=== PATIENT | female | born 1940 | race Two or more races ===

== ENCOUNTER 2017-03-02 20:45 | Inpatient (IN) | payer MEDICARE ==
[~2017-03-02] VITALS: Ht 165.1 cm; Wt 88.6 kg
[2017-03-02 21:13] VITALS: BP 118/56
[2017-03-02] MEDS ORDERED: ARNICARE TOP (21:29)
[2017-03-02] MEDS ORDERED: NYST15PO9 TP (21:29)
[2017-03-02] MEDS ORDERED: LORA0.5T PO (21:29)
[2017-03-02] MEDS ORDERED: CLOP75TA57 PO (21:29)
[2017-03-02] MEDS ORDERED: DONE10TA7 PO (21:29)
[2017-03-02] MEDS ORDERED: ARIP2TAB35 PO (21:29)
[2017-03-02] MEDS ORDERED: INSU100I17 SQ (21:29)
[2017-03-02] MEDS ORDERED: HYDR-965 PO (21:29)
[2017-03-02] MEDS ORDERED: CYAN10005 PO (21:29)
[2017-03-02] MEDS ORDERED: CITA20TA9 PO (21:29)
[2017-03-02] MEDS ORDERED: GABA600T PO (21:29)
[2017-03-02] MEDS ORDERED: INSU100I27 SQ (21:29)
[2017-03-02] MEDS ORDERED: LEVO1CAP3 PO (21:29)
[2017-03-02] MEDS ORDERED: PYRI100T3 PO (21:29)
[2017-03-02] MEDS ORDERED: MINE3.5O2 OU (21:29)
[2017-03-02] MEDS ORDERED: CHOL10003 PO (21:29)
[2017-03-02] MEDS ORDERED: AMLO5TAB4 PO (21:29)
[2017-03-02] MEDS ORDERED: POTA20TA4 PO (21:29)
[2017-03-02] MEDS ORDERED: ATOR40TA59 PO (21:29)
[2017-03-02] MEDS ORDERED: METHYL SALICYLATE/MENTHOL TOPICAL OINTMENT 29GM TUBE. TP PRN (21:30)
[2017-03-02] MEDS ORDERED: MAGNESIUM HYDROXIDE 2,400 MG/30 ML ORAL.SUSP. PO PRN (21:30)
[2017-03-02] MEDS ORDERED: LORazepam 0.5 MG TABLET PO PRN (21:30)
[2017-03-02] MEDS ORDERED: MAG HYDROX/AL HYDROX/SIMETH 30 ML ORAL.SUSP PO PRN (21:30)
[2017-03-02] MEDS ORDERED: NYSTATIN TOPICAL POWDER 15GM BOTTLE. TP PRN (21:45)
[2017-03-02] MEDS ORDERED: DEXTROSE 50% 25 GM / 50ML DISP.SYRIN. IV PRN (21:45)
[2017-03-02 22:01] LABS: BASO # 0.1 x10^3/uL (0.0-0.2); BASO % 1 % (0-3); EOS # 0.1 x10^3/uL (0.0-0.7); EOS % 2 % (0-3); HEMATOCRIT 37.5 % (36.0-47.0); HEMOGLOBIN 12.7 g/dL (12.0-15.5); LYMPH % 31 % (24-48); MEAN CORPUSCULAR HEMOGLOBIN 32 pg (25-35); MEAN CORPUSCULAR HGB CONC 34 g/dL (31-37); MEAN CORPUSCULAR VOLUME 95 fL (79-100); MONO # 0.7 x10^3/uL (0.0-1.1); MONO % 11 % (0-9); NEUT # 3.6 x10^3uL (1.8-7.7); NEUT % 55 % (31-73); PLATELET COUNT 245 x10^3/uL (140-400); RED BLOOD COUNT 3.94 x10^6/uL (3.50-5.40); RED CELL DISTRIBUTION WIDTH 12.7 % (11.5-14.5); WHITE BLOOD COUNT 6.5 x10^3/uL (4.0-11.0)
[2017-03-02 22:10] LABS: ALBUMIN 3.6 g/dL (3.4-5.0); CALCIUM 9.8 mg/dL (8.5-10.1); CREATININE 1.5 mg/dL (0.6-1.0); GFR 33.6; MAGNESIUM 0.9 mg/dL (1.8-2.4); POTASSIUM 5.4 mmol/L (3.5-5.1); TOTAL BILIRUBIN 0.6 mg/dL (0.2-1.0); TOTAL PROTEIN 7.2 g/dL (6.4-8.2)
[2017-03-02] MEDS: ATORVASTATIN CALCIUM 20 MG TABLET PO SCH (22:32)
[2017-03-02] MEDS: MINERAL OIL/PETROLATUM,WHITE OPHTH OINT 3.5GM TUBE. OU SCH (22:32)
[2017-03-02] MEDS: GABAPENTIN 300 MG CAPSULE. PO SCH (22:32)
[2017-03-02] MEDS: INSULIN DETEMIR 300 UNITS/3 ML INSULN.PEN. SQ SCH (22:34)
[2017-03-02] MEDS: HYDROcodone/APAP 7.5/325MG 1 TAB TABLET PO SCH (22:45)
[2017-03-03 05:40] LABS: BACTERIA,URINE FEW /HPF (0-FEW); BILIRUBIN,URINE NEG (NEG); CLARITY,URINE CLEAR; COLOR,URINE YELLOW; GLUCOSE,URINE NEG (NEG); NITRITE,URINE NEG (NEG); RBC,URINE >40 /HPF (0-2); SQUAMOUS EPITHELIAL CELL,UR FEW /LPF; UROBILINOGEN,URINE 1 mg/dL (0.2 mg/dL); WBC,URINE OCC /HPF (0-4)
[2017-03-03 05:47] VITALS: BP 134/56
[2017-03-03] MEDS: INSULIN ASPART 300 UNITS/3 ML INSULN.PEN SQ SCH ×3 (07:59→17:00)
[2017-03-03] MEDS: GABAPENTIN 300 MG CAPSULE. PO SCH ×3 (08:05→20:00)
[2017-03-03] MEDS: PYRIDOXINE 100 MG TABLET. PO SCH (08:05)
[2017-03-03] MEDS: CITALOPRAM 20 MG TABLET. PO SCH (08:05)
[2017-03-03] MEDS: CLOPIDOGREL BISULFATE 75 MG TABLET PO SCH (08:05)
[2017-03-03] MEDS: ARIPiprazole 2 MG TABLET PO SCH (08:05)
[2017-03-03] MEDS: CYANOCOBALAMIN (VITAMIN B-12) 1,000 MCG TABLET. PO SCH (08:05)
[2017-03-03] MEDS: amLODIPine BESYLATE 5 MG TABLET PO SCH (08:05)
[2017-03-03] MEDS: VITAMIN B COMPLEX CAPSULE. PO SCH ×2 (08:05→20:01)
[2017-03-03] MEDS: CHOLECALCIFEROL (VITAMIN D3) 1,000 UNIT TABLET PO SCH (08:06)
[2017-03-03] MEDS: HYDROcodone/APAP 7.5/325MG 1 TAB TABLET PO SCH ×4 (08:12→20:03)
[2017-03-03] MEDS: MINERAL OIL/PETROLATUM,WHITE OPHTH OINT 3.5GM TUBE. OU SCH ×2 (08:48→20:03)
[2017-03-03] MEDS: DONEPEZIL HCL 10 MG TABLET PO SCH (08:48)
[2017-03-03 16:36] VITALS: BP 153/72
[2017-03-03 17:15] LABS: THYROID STIM HORMONE (TSH) 5.224 uIU/mL (0.358-3.740)
[2017-03-03] MEDS: ATORVASTATIN CALCIUM 20 MG TABLET PO SCH (20:01)
[2017-03-03] MEDS: MAGNESIUM OXIDE 400 MG TABLET PO SCH (20:03)
[2017-03-03] MEDS: INSULIN DETEMIR 300 UNITS/3 ML INSULN.PEN. SQ SCH (20:05)
[2017-03-03 20:10] LABS: T3 TOTAL 141 ng/dL (71-180); THYROXINE 8.6 ug/dL (4.5-12.0)
--- NOTE | 2017-03-03 20:35 | PDOC ---
Exam Jam Demential Exam: Jam Note: Please also refer to the separate dictated note~for this date of service dictated separately.~Patient seen individually. Discussed the patient with Nursing staff reviewed the chart.~Reviewed interim history and current functioning. Reviewed vital signs,~Labs/ Radiology~and current medications noted below. Continue current treatment with the changes noted in the dictated addendum note Assessment: Vital Signs: Vital Signs Date Time Temp Pulse Resp B/P (MAP) Pulse Ox O2 Delivery O2 Flow Rate FiO2 03/03/17 20:03 20 03/03/17 18:25 100 03/03/17 16:36 97.3 77 153/72 (99) Room Air I&O Intake and Output 03/04/17 07:00 Intake Total 900 ml Balance 900 ml Intake Oral 900 ml Labs: Laboratory Tests Test 03/02/17 21:45 03/02/17 22:22 03/03/17 05:20 03/03/17 07:50 White Blood Count 6.5 x10^3/uL (4.0-11.0) Red Blood Count 3.94 x10^6/uL (3.50-5.40) Hemoglobin 12.7 g/dL (12.0-15.5) Hematocrit 37.5 % (36.0-47.0) Mean Corpuscular Volume 95 fL (79-100) Mean Corpuscular Hemoglobin 32 pg (25-35) Mean Corpuscular Hemoglobin Concent 34 g/dL (31-37) Red Cell Distribution Width 12.7 % (11.5-14.5) Platelet Count 245 x10^3/uL (140-400) Neutrophils (%) (Auto) 55 % (31-73) Lymphocytes (%) (Auto) 31 % (24-48) Monocytes (%) (Auto) 11 % (0-9) H Eosinophils (%) (Auto) 2 % (0-3) Basophils (%) (Auto) 1 % (0-3) Neutrophils # (Auto) 3.6 x10^3uL (1.8-7.7) Lymphocytes # (Auto) 2.0 x10^3/uL (1.0-4.8) Monocytes # (Auto) 0.7 x10^3/uL (0.0-1.1) Eosinophils # (Auto) 0.1 x10^3/uL (0.0-0.7) Basophils # (Auto) 0.1 x10^3/uL (0.0-0.2) Sodium Level 139 mmol/L (136-145) Potassium Level 5.4 mmol/L (3.5-5.1) H Chloride Level 107 mmol/L (98-107) Carbon Dioxide Level 21 mmol/L (21-32) Anion Gap 11 (6-14) Blood Urea Nitrogen 21 mg/dL (7-20) H Creatinine 1.5 mg/dL (0.6-1.0) H Estimated GFR (Cockcroft-Gault) 33.6 BUN/Creatinine Ratio 14 (6-20) Glucose Level 169 mg/dL (70-99) H Calcium Level 9.8 mg/dL (8.5-10.1) Magnesium Level 0.9 mg/dL (1.8-2.4) L Iron Level 63 ug/dL (50-170) Total Iron Binding Capacity 291 ug/dL (250-450) Iron Saturation 22 % (15-34) Total Bilirubin 0.6 mg/dL (0.2-1.0) Aspartate Amino Transferase (AST) 32 U/L (15-37) Alanine Aminotransferase (ALT) 34 U/L (14-59) Alkaline Phosphatase 153 U/L (46-116) H Total Protein 7.2 g/dL (6.4-8.2) Albumin 3.6 g/dL (3.4-5.0) Albumin/Globulin Ratio 1.0 (1.0-1.7) Triglycerides Level 107 mg/dL (0-150) Cholesterol Level 142 mg/dL (0-200) LDL Cholesterol, Calculated 95 mg/dL (0-100) VLDL Cholesterol, Calculated 21 mg/dL (0-40) Non-HDL Cholesterol Calculated 116 mg/dL (0-129) HDL Cholesterol 26 mg/dL (40-60) L Cholesterol/HDL Ratio 5.0 25-Hydroxy Vitamin D Total Pending Thyroid Stimulating Hormone (TSH) 5.224 uIU/mL (0.358-3.740) Thyroxine (T4) 8.6 ug/dL (4.5-12.0) Total Triiodothyronine (TT3) 141 ng/dL (71-180) RPR Titer Additional Testing Pending Glucose (Fingerstick) 165 mg/dL (70-99) H 110 mg/dL (70-99) H Urine Collection Type Unknown Urine Color Yellow Urine Clarity Clear Urine pH 5.0 Urine Specific [place] 1.020 Urine Protein 30 mg/dl (NEG-TRACE) Urine Glucose (UA) Neg mg/dL (NEG) Urine Ketones (Stick) Trace mg/dL (NEG) Urine Blood Large (NEG) Urine Nitrite Neg (NEG) Urine Bilirubin Neg (NEG) Urine Urobilinogen Dipstick 1 mg/dL (0.2 mg/dL) Urine Leukocyte Esterase Neg (NEG) Urine RBC >40 /HPF (0-2) Urine WBC Occ /HPF (0-4) Urine Squamous Epithelial Cells Few /LPF Urine Transitional Epithelial Cells Few /LPF Urine Bacteria Few /HPF (0-FEW) Test 03/03/17 11:12 03/03/17 16:31 03/03/17 19:08 Glucose (Fingerstick) 118 mg/dL (70-99) H 130 mg/dL (70-99) H 203 mg/dL (70-99) H Current Medications: Meds: Current Medications Acetaminophen (Tylenol) 650 mg PRN Q6HRS PRN PO PAIN / TEMP; Start 03/02/17 at 21:30 Multi-Ingredient Ointment (Analgesic [place]) 1 jasmyne PRN QID PRN TP MUSCLE PAIN Last administered on 03/02/17 22:32; Start 03/02/17 at 21:30 Al Hydroxide/Mg Hydroxide (Mylanta Plus Xs) 15 ml PRN AFTMEALHC PRN PO DYSPEPSIA; Start 03/02/17 at 21:30 Magnesium Hydroxide (Milk Of Magnesia) 2,400 mg PRN QHS PRN PO CONSTIPATION; Start 03/02/17 at 21:30 Aripiprazole (Abilify) 2 mg DAILY PO Last administered on 03/03/17 08:05; Start 03/03/17 at 09:00 Citalopram Hydrobromide (CeleXA) 20 mg DAILY PO Last administered on 03/03/17 08:05; Start 03/03/17 at 09:00 Donepezil HCl (Aricept) 10 mg DAILY PO Last administered on 03/03/17 08:48; Start 03/03/17 at 09:00 Lorazepam (Ativan) 0.5 mg PRN TID PRN PO ANXIETY / AGITATION; Start 03/02/17 at 21:30 Amlodipine Besylate (Norvasc) 5 mg DAILY PO Last administered on 03/03/17 08: 05; Start 03/03/17 at 09:00 Vitamin D (Vitamin D3) 5,000 unit DAILY PO Last administered on 03/03/17 08:06 ; Start 03/03/17 at 09:00 Clopidogrel Bisulfate (Plavix) 75 mg DAILY PO Last administered on 03/03/17 08 :05; Start 03/03/17 at 09:00 Cyanocobalamin (Vitamin B-12) 1,000 mcg DAILY PO Last administered on 08:05; Start 03/03/17 at 09:00 Acetaminophen/ Hydrocodone Bitart (Lortab 7.5/325) 1 tab QID PO Last administered on 03/03/17 20:03; Start 03/02/17 at 22:00 Insulin Detemir (Levemir) 25 units QHS SQ Last administered on 03/03/17 20:05 ; Start 03/02/17 at 22:00 Nystatin (Nystop) 1 jasmyne PRN BID PRN TP REDNESS Last administered on 03/03/17 08:04; Start 03/02/17 at 21:45 Pyridoxine HCl (Vitamin B-6) 100 mg DAILY PO Last administered on 03/03/17 08: 05; Start 03/03/17 at 09:00 Atorvastatin Calcium (Lipitor) 40 mg QHS PO Last administered on 03/03/17 20: 01; Start 03/02/17 at 22:00 Gabapentin (Neurontin) 600 mg TID PO Last administered on 03/03/17 20:00; Start 03/02/17 at 22:00 Vitamin B Complex 1 cap BID PO Last administered on 03/03/17 20:01; Start at 09:00 Multi-Ingred Cream/Lotion/Oil/ Oint (Artificial Tears Eye Oint) 1 jasmyne BID OU Last administered on 03/03/17 20:03; Start 03/02/17 at 22:00 Insulin Aspart (NovoLOG) 0-5 UNITS TIDWMEALS SQ ; Start 03/03/17 at 08:00 Dextrose 12.5 gm PRN Q15MIN PRN IV SEE COMMENTS; Start 03/02/17 at 21:45 Magnesium Oxide (Magnesium Oxide) 400 mg TID PO Last administered on 03/03/17t 20:03; Start 03/03/17 at 21:00 Sodium Bicarbonate 650 mg BID PO ; Start 03/03/17 at 21:00 Active Scripts Active Reported [place] 7.5-325 Tablet (Hydrocodone Bit/Acetaminophen) 1 Each Tablet 1 Tab PO QID Metanx Capsule (Levomefolate/B6/B12/Algal Oil) 1 Each Capsule 1 Cap PO BID Lorazepam 0.5 Mg Tablet 0.5 Mg PO PRN TID PRN Abilify (Aripiprazole) 2 Mg Tablet 2 Mg PO DAILY Celexa (Citalopram Hydrobromide) 20 Mg Tablet 20 Mg PO DAILY Neurontin (Gabapentin) 600 Mg Tablet 600 Mg PO TID [Arnicare Gel] 1 Jasmyne TOP PRN BID PRN Donepezil Hcl 10 Mg Tablet 10 Mg PO DAILY Levemir Flextouch (Insulin Detemir) 100 Unit/1 Ml Insuln.pen 25 Unit SQ QHS Klor-Con M20 (Potassium Chloride) 20 Meq Tab.er.prt 40 Meq PO DAILY Novolog Flexpen (Insulin Aspart) 100 Unit/1 Ml Insuln.pen 0-5 Unit SQ TIDWMEALS Nystatin 15 Gm Powder 1 Jasmyne TP PRN BID PRN Pyridoxine Hcl 100 Mg Tablet 100 Mg PO DAILY Norvasc (Amlodipine Besylate) 5 Mg Tablet 5 Mg PO DAILY Atorvastatin Calcium 40 Mg Tablet 40 Mg PO QHS Plavix (Clopidogrel Bisulfate) 75 Mg Tablet 75 Mg PO DAILY Refresh Lacri-Lube Ointment (Mineral Oil/Petrolatum,White) 3.5 Gm Oint...g. 1 Jasmyne OU BID Vitamin B-12 (Cyanocobalamin (Vitamin B-12)) 1,000 Mcg Tablet 1,000 Mcg PO DAILY Vitamin D3 (Cholecalciferol (Vitamin D3)) 1,000 Unit Tablet 5,000 Unit PO DAILY ALESSANDRA IBRAHIM MD Mar 03, 2017 20:35
[2017-03-03] MEDS: SODIUM BICARBONATE 650 MG TABLET PO SCH (21:07)
[2017-03-04 01:09] LABS: HEMOGLOBIN A1C 6.2 % (4.8-5.6)
[2017-03-04 06:11] VITALS: BP 134/66
[2017-03-04 07:00] LABS: CREATININE 1.8 mg/dL (0.6-1.0); GFR 27.2; MAGNESIUM 1.1 mg/dL (1.8-2.4); POTASSIUM 4.6 mmol/L (3.5-5.1)
[2017-03-04] MEDS: INSULIN ASPART 300 UNITS/3 ML INSULN.PEN SQ SCH ×3 (08:00→17:16)
[2017-03-04] MEDS: CHOLECALCIFEROL (VITAMIN D3) 1,000 UNIT TABLET PO SCH (09:28)
[2017-03-04] MEDS: HYDROcodone/APAP 7.5/325MG 1 TAB TABLET PO SCH ×5 (09:29→20:49)
[2017-03-04] MEDS: PYRIDOXINE 100 MG TABLET. PO SCH (09:29)
[2017-03-04] MEDS: DONEPEZIL HCL 10 MG TABLET PO SCH (09:29)
[2017-03-04] MEDS: SODIUM BICARBONATE 650 MG TABLET PO SCH ×3 (09:29→20:48)
[2017-03-04] MEDS: VITAMIN B COMPLEX CAPSULE. PO SCH ×3 (09:29→20:48)
[2017-03-04] MEDS: CITALOPRAM 20 MG TABLET. PO SCH (09:30)
[2017-03-04] MEDS: MAGNESIUM OXIDE 400 MG TABLET PO SCH ×4 (09:30→20:49)
[2017-03-04] MEDS: CYANOCOBALAMIN (VITAMIN B-12) 1,000 MCG TABLET. PO SCH (09:30)
[2017-03-04] MEDS: CLOPIDOGREL BISULFATE 75 MG TABLET PO SCH (09:30)
[2017-03-04] MEDS: amLODIPine BESYLATE 5 MG TABLET PO SCH (09:30)
[2017-03-04] MEDS: GABAPENTIN 300 MG CAPSULE. PO SCH ×4 (09:30→20:49)
[2017-03-04] MEDS: MINERAL OIL/PETROLATUM,WHITE OPHTH OINT 3.5GM TUBE. OU SCH ×3 (09:31→20:48)
[2017-03-04] MEDS: ARIPiprazole 2 MG TABLET PO SCH (09:34)
--- NOTE | 2017-03-04 15:43 | HP ---
ADMIT DATE: 03/03/2017 This late entry 03/03/2017 covers elements not covered in my initial note on 03/03/2017. I met with patient in the evening of 03/03/2017 for this evaluation. Previously I discussed with nursing staff several times on 03/02/2017 and 03/03/2017 regarding circumstances of her admission gathered history from the Emergency Room at [facility] where she presented from [facility] reviewed admission criteria, gave admission orders and medication adjustments, labs. CHIEF COMPLAINT: "Yes, I get upset. I have been depressed." HISTORY OF PRESENT ILLNESS: The patient has a history of dementia, Alzheimer's, vascular and more recently she has been getting increasingly depressed. She has been at [facility], had acute mental status changes, was her wheelchair into other people. Reportedly, she grabbed her daughter's neck, was agitated, aggressive, verbally abusive, labile, paranoid about food being poisoned and refusing medications. Behaviors were deemed dangerous, unmanageable at the facility. She was sent to the [facility] Emergency Room where the ER physician psychiatric hospitalization. She has also had some sleep and appetite changes. No active suicidal or homicidal ideation other than above. Short term memory has been worsening. PAST PSYCHIATRIC HISTORY: As above. PAST MEDICAL HISTORY: Cellulitis, fibromyalgia, type 2 diabetes mellitus, lymphedema, chronic kidney disease stage 3, chronic diarrhea, hypertension, history of pulmonary embolism, obstructive sleep apnea, rotator cuff pain, Accu-Cheks before meals and at bedtime. Serum magnesium is low at 0.9, being supplemented by Dr. Stovall. CODE STATUS: Full code. ALLERGIES: PENICILLIN, SULFA, TAPE. CURRENT PSYCHOTROPICS: MRAD was reviewed and drug interactions reviewed carefully. She is on Abilify 2 mg a day, Celexa 20 mg a day, B12 supplements, Aricept 10 mg a day, Neurontin 600 mg 3 times a day, Ativan p.r.n. FAMILY HISTORY: Noncontributory. 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 She talked about her dog cancer, gets tearful. Speech is coherent. Ambulation impaired and wheelchair. Short term memory is impaired. She is otherwise pleasant was oriented x 2, knew her name and birthday. When I questioned her, she knew the year. Attention span short. Language function intact. Mood is dysphoric, depressed, but she was quite verbal with me. Affect is mood, congruent. No active suicidal or homicidal ideation. REVIEW OF SYSTEMS: Ambulation impaired, in a wheelchair. No CV, , pulmonary, eye system symptoms on review. 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 PLAN: Admit to Geropsychiatry Unit at [facility]. I will see the patient daily individually from a psychiatric standpoint medical followup with Dr. Jimenes/Dr. Stovall. We may consider changing Celexa to Cymbalta 30 mg a day starting on 03/04/2017 maintaining the rest of his psychotropics. I have carefully reviewed the drug interactions. Risk/benefit ratio favors no further change at this time. MAN Elizabeth IBRAHIM MD DR: CARLA/faith JOB#: [id number] / [id number]
[2017-03-04 15:47] VITALS: BP 115/64
--- NOTE | 2017-03-04 17:52 | CONS ---
DATE OF CONSULTATION: 03/03/2017 REASON FOR CONSULTATION: Medical management. HISTORY OF PRESENT ILLNESS: The patient is a 77-year-old female patient, a resident at [facility], who was basically [facility] on the account of ramming people with her wheelchair, grabbed daughter's neck, verbally abusive, labile, paranoid about food is being poisoned and refusing medication. All this in a background of dementia with behavioral disorder and she was admitted here for inpatient psychiatric stabilization. The patient herself denied any complaints. PAST MEDICAL HISTORY: Significant for type 2 diabetes, chronic kidney disease, hypertension, pulmonary embolism, obstructive sleep apnea, lymphedema, chronic diarrhea, and cellulitis. PAST PSYCHIATRIC HISTORY: Significant for dementia. ALLERGIES: SHE IS ALLERGIC TO PENICILLIN, SULFA DRUGS, AND ADHESIVE TAPE. MEDICATIONS: She is currently on following medications: She is on amlodipine besylate 5 mg once a day, aripiprazole/Abilify 2 mg once a day, atorvastatin calcium 40 mg at bedtime, vitamin D3 5000 units once a day, citalopram hydrobromide/Celexa 20 mg once a day, Plavix 75 mg daily, cyanocobalamin 1000 mcg p.o. daily, Aricept 10 mg daily, gabapentin 600 mg 3 times a day, hydrocodone/APAP 7.5/325 one tablet 4 times a day. She is on NovoLog insulin 0 to 5 units subcutaneously before meals and Levemir insulin 25 units subcutaneously at bedtime. She is on multivitamin 1 tablet once a day, lorazepam 0.5 mg 3 times a day, Refresh Lacri-Lube ointment applied to both eyes twice a day, nystatin powder applied topically twice a day, potassium chloride 40 mEq once a day, pyridoxine 100 mg once a day, FAMILY HISTORY: Unremarkable. SOCIAL HISTORY: She is a resident at a [place] [facility]. She does not smoke, drink alcohol or use any recreational drugs. PHYSICAL EXAMINATION: GENERAL: On examining her, she was resting comfortably in her wheelchair, in no apparent respiratory distress. No pallor, jaundice, cyanosis, lymphadenopathy or thyromegaly. No jugular venous distention. Mild bilateral lower limb edema. VITAL SIGNS: Her heart rate was 77, blood pressure was 153/72, temperature was 97.3, respiratory rate was 18 and oxygen saturation was 100% on room air. HEAD, EYES, EARS, NOSE AND THROAT: Showed normocephalic, atraumatic. NECK: Supple. HEART: Showed normal first and second heart sounds with no gallop, rub or murmur. CHEST: Clear to auscultation. No crepitation or rhonchi. ABDOMEN: Distended, soft, nontender. No guarding or rigidity. No organomegaly. Hernial orifices intact. Bowel sounds normal. NEUROLOGIC: She was awake, alert, responding appropriately. Her cranial nerves intact. EXTREMITIES: She moves her extremities without difficulty, although she is mostly chair-bound. LABORATORY WORK: This afternoon showed a white cell count 6500, hemoglobin 12.7, hematocrit 37.5, MCV 95 and platelet count 245,000 with normal manual differential. Her serum sodium was 139, potassium 5.4, chloride 107, bicarbonate 21, anion gap of 11, BUN 21, creatinine 1.5, estimated GFR was 53 mL per minute, glucose was 69, calcium was 9.8. Magnesium was very low at 0.9 mg/dL. Her total bilirubin, AST, ALT normal. Alkaline phosphatase slightly elevated. Total protein was 7.2, albumin 3.6. Her urinalysis showed the urine was yellow, clear with a pH of 5, specific gravity of 1.020, trace of protein, negative for glucose, there was trace of ketones, large amount of blood, negative for nitrite and leukocyte esterase, there was more than 40 rbc's, occasional wbc's, very few bacteria. IMPRESSION: In summary, this is a 77-year-old female patient who was admitted on the account of ramming people with her wheelchair, grabbed her daughter's neck, verbally abusive, labile, paranoid about food being poisoned and refusing medication, all this in a background of dementia with behavioral disorder. She has a multitude of medical problems including type 2 diabetes, hypertension, chronic kidney disease, chronic diarrhea, cellulitis and obstructive sleep apnea. She has also history of pulmonary embolism. Her lab work revealed that she has severe hypomagnesemia. Her serum magnesium was only 0.9 mg/dL. She also has mild hyperkalemia and chronic kidney disease with a creatinine of 1.5 mg/dL. Her other lab works are all within acceptable range. PLAN: My plan is obviously to replenish her magnesium, for which we will start her on magnesium oxide 400 mg 3 times a day. I will also start her on sodium bicarbonate 650 mg twice a day. She is also slightly acidotic with serum bicarbonate is only 21. We will repeat her labs tomorrow and follow her closely. Thank you, Dr. Ceja for allowing me to participate in the care of this patient. JI HAWKINS MD DR: BIJAL/faith JOB#: [id number] / [id number]
[2017-03-04] MEDS: ATORVASTATIN CALCIUM 20 MG TABLET PO SCH ×2 (20:03→20:48)
[2017-03-04] MEDS: INSULIN DETEMIR 300 UNITS/3 ML INSULN.PEN. SQ SCH ×2 (20:07→20:49)
--- NOTE | 2017-03-04 22:54 | PDOC ---
Exam Jam Demential Exam: Jam Note: Please also refer to the separate dictated note~for this date of service dictated separately.~Patient seen individually. Discussed the patient with Nursing staff reviewed the chart.~Reviewed interim history and current functioning. Reviewed vital signs,~Labs/ Radiology~and current medications noted below. Continue current treatment with the changes noted in the dictated addendum note Assessment: Vital Signs: Vital Signs Date Time Temp Pulse Resp B/P (MAP) Pulse Ox O2 Delivery O2 Flow Rate FiO2 03/04/17 18:49 20 Room Air 03/04/17 15:47 97.7 65 115/64 (81) 100 I&O Intake and Output 03/05/17 07:00 Intake Total 960 ml Balance 960 ml Intake Oral 960 ml Labs: Laboratory Tests Test 03/04/17 06:37 03/04/17 07:19 03/04/17 11:15 03/04/17 16:38 Sodium Level 138 mmol/L (136-145) Potassium Level 4.6 mmol/L (3.5-5.1) Chloride Level 105 mmol/L (98-107) Carbon Dioxide Level 25 mmol/L (21-32) Anion Gap 8 (6-14) Blood Urea Nitrogen 28 mg/dL (7-20) H Creatinine 1.8 mg/dL (0.6-1.0) H Estimated GFR (Cockcroft-Gault) 27.2 Glucose Level 83 mg/dL (70-99) Calcium Level 9.0 mg/dL (8.5-10.1) Magnesium Level 1.1 mg/dL (1.8-2.4) L Glucose (Fingerstick) 78 mg/dL (70-99) 128 mg/dL (70-99) H 154 mg/dL (70-99) H Test 03/04/17 19:05 Glucose (Fingerstick) 206 mg/dL (70-99) H Current Medications: Meds: Current Medications Acetaminophen (Tylenol) 650 mg PRN Q6HRS PRN PO PAIN / TEMP; Start 03/02/17 at 21:30 Multi-Ingredient Ointment (Analgesic [place]) 1 jasmyne PRN QID PRN TP MUSCLE PAIN Last administered on 03/02/17t 22:32; Start 03/02/17 at 21:30 Al Hydroxide/Mg Hydroxide (Mylanta Plus Xs) 15 ml PRN AFTMEALHC PRN PO DYSPEPSIA; Start 03/02/17 at 21:30 Magnesium Hydroxide (Milk Of Magnesia) 2,400 mg PRN QHS PRN PO CONSTIPATION; Start 03/02/17 at 21:30 Aripiprazole (Abilify) 2 mg DAILY PO Last administered on 03/04/17 09:34; Start 03/03/17 at 09:00 Citalopram Hydrobromide (CeleXA) 20 mg DAILY PO Last administered on 03/04/17 09:30; Start 03/03/17 at 09:00; Stop 03/04/17 at 12:11; Status DC Donepezil HCl (Aricept) 10 mg DAILY PO Last administered on 03/04/17 09:29; Start 03/03/17 at 09:00 Lorazepam (Ativan) 0.5 mg PRN TID PRN PO ANXIETY / AGITATION; Start 03/02/17 at 21:30 Amlodipine Besylate (Norvasc) 5 mg DAILY PO Last administered on 03/04/17 09: 30; Start 03/03/17 at 09:00 Vitamin D (Vitamin D3) 5,000 unit DAILY PO Last administered on 03/04/17 09:28 ; Start 03/03/17 at 09:00 Clopidogrel Bisulfate (Plavix) 75 mg DAILY PO Last administered on 03/04/17 09 :30; Start 03/03/17 at 09:00 Cyanocobalamin (Vitamin B-12) 1,000 mcg DAILY PO Last administered on 09:30; Start 03/03/17 at 09:00 Acetaminophen/ Hydrocodone Bitart (Lortab 7.5/325) 1 tab QID PO Last administered on 03/04/17 17:15; Start 03/02/17 at 22:00 Insulin Detemir (Levemir) 25 units QHS SQ Last administered on 03/03/17 20:05 ; Start 03/02/17 at 22:00 Nystatin (Nystop) 1 jasmyne PRN BID PRN TP REDNESS Last administered on 03/03/17 08:04; Start 03/02/17 at 21:45 Pyridoxine HCl (Vitamin B-6) 100 mg DAILY PO Last administered on 03/04/17 09: 29; Start 03/03/17 at 09:00 Atorvastatin Calcium (Lipitor) 40 mg QHS PO Last administered on 03/03/17 20: 01; Start 03/02/17 at 22:00 Gabapentin (Neurontin) 600 mg TID PO Last administered on 03/04/17 15:43; Start 03/02/17 at 22:00 Vitamin B Complex 1 cap BID PO Last administered on 03/04/17 09:29; Start at 09:00 Multi-Ingred Cream/Lotion/Oil/ Oint (Artificial Tears Eye Oint) 1 jasmyne BID OU Last administered on 03/04/17 09:31; Start 03/02/17 at 22:00 Insulin Aspart (NovoLOG) 0-5 UNITS TIDWMEALS SQ Last administered on 03/04/17 17:16; Start 03/03/17 at 08:00 Dextrose 12.5 gm PRN Q15MIN PRN IV SEE COMMENTS; Start 03/02/17 at 21:45 Magnesium Oxide (Magnesium Oxide) 400 mg TID PO Last administered on 03/04/17 15:43; Start 03/03/17 at 21:00 Sodium Bicarbonate 650 mg BID PO Last administered on 03/04/17 09:29; Start at 21:00 Duloxetine HCl (Cymbalta) 30 mg DAILY PO ; Start 03/05/17 at 09:00 Active Scripts Active Reported [place] 7.5-325 Tablet (Hydrocodone Bit/Acetaminophen) 1 Each Tablet 1 Tab PO QID Metanx Capsule (Levomefolate/B6/B12/Algal Oil) 1 Each Capsule 1 Cap PO BID Lorazepam 0.5 Mg Tablet 0.5 Mg PO PRN TID PRN Abilify (Aripiprazole) 2 Mg Tablet 2 Mg PO DAILY Celexa (Citalopram Hydrobromide) 20 Mg Tablet 20 Mg PO DAILY Neurontin (Gabapentin) 600 Mg Tablet 600 Mg PO TID [Arnicare Gel] 1 Jasmyne TOP PRN BID PRN Donepezil Hcl 10 Mg Tablet 10 Mg PO DAILY Levemir Flextouch (Insulin Detemir) 100 Unit/1 Ml Insuln.pen 25 Unit SQ QHS Klor-Con M20 (Potassium Chloride) 20 Meq Tab.er.prt 40 Meq PO DAILY Novolog Flexpen (Insulin Aspart) 100 Unit/1 Ml Insuln.pen 0-5 Unit SQ TIDWMEALS Nystatin 15 Gm Powder 1 Jasmyne TP PRN BID PRN Pyridoxine Hcl 100 Mg Tablet 100 Mg PO DAILY Norvasc (Amlodipine Besylate) 5 Mg Tablet 5 Mg PO DAILY Atorvastatin Calcium 40 Mg Tablet 40 Mg PO QHS Plavix (Clopidogrel Bisulfate) 75 Mg Tablet 75 Mg PO DAILY Refresh Lacri-Lube Ointment (Mineral Oil/Petrolatum,White) 3.5 Gm Oint...g. 1 Jasmyne OU BID Vitamin B-12 (Cyanocobalamin (Vitamin B-12)) 1,000 Mcg Tablet 1,000 Mcg PO DAILY Vitamin D3 (Cholecalciferol (Vitamin D3)) 1,000 Unit Tablet 5,000 Unit PO DAILY Diagnosis: Problems: (1) Anxiety disorder (2) Dementia in Alzheimer's disease with delusions (3) Dementia in Alzheimer's disease with depression (4) Major depressive disorder, recurrent episode (5) Impulse control disorder ALESSANDRA IBRAHIM MD Mar 04, 2017 22:54
[2017-03-05 05:51] VITALS: BP 130/71
[2017-03-05] MEDS: CHOLECALCIFEROL (VITAMIN D3) 1,000 UNIT TABLET PO SCH (07:35)
[2017-03-05] MEDS: DONEPEZIL HCL 10 MG TABLET PO SCH (07:36)
[2017-03-05] MEDS: VITAMIN B COMPLEX CAPSULE. PO SCH ×2 (07:36→19:23)
[2017-03-05] MEDS: ARIPiprazole 2 MG TABLET PO SCH (07:36)
[2017-03-05] MEDS: amLODIPine BESYLATE 5 MG TABLET PO SCH (07:36)
[2017-03-05] MEDS: CLOPIDOGREL BISULFATE 75 MG TABLET PO SCH (07:36)
[2017-03-05] MEDS: GABAPENTIN 300 MG CAPSULE. PO SCH ×3 (07:36→19:23)
[2017-03-05] MEDS: CYANOCOBALAMIN (VITAMIN B-12) 1,000 MCG TABLET. PO SCH (07:36)
[2017-03-05] MEDS: MAGNESIUM OXIDE 400 MG TABLET PO SCH ×3 (07:36→19:23)
[2017-03-05] MEDS: INSULIN ASPART 300 UNITS/3 ML INSULN.PEN SQ SCH ×3 (07:39→16:55)
[2017-03-05] MEDS: HYDROcodone/APAP 7.5/325MG 1 TAB TABLET PO SCH ×4 (07:39→19:23)
[2017-03-05] MEDS: SODIUM BICARBONATE 650 MG TABLET PO SCH ×2 (07:46→19:24)
[2017-03-05] MEDS: MINERAL OIL/PETROLATUM,WHITE OPHTH OINT 3.5GM TUBE. OU SCH ×2 (07:46→19:24)
[2017-03-05] MEDS: DULoxetine HCL 30 MG CAPSULE.DR PO SCH (07:46)
[2017-03-05] MEDS: PYRIDOXINE 100 MG TABLET. PO SCH (07:46)
[2017-03-05 16:05] VITALS: BP 107/64
[2017-03-05] MEDS: ATORVASTATIN CALCIUM 20 MG TABLET PO SCH (19:23)
--- NOTE | 2017-03-05 19:59 | PDOC ---
Exam Jam Demential Exam: Jam Note: Please also refer to the separate dictated note~for this date of service dictated separately.~Patient seen individually. Discussed the patient with Nursing staff reviewed the chart.~Reviewed interim history and current functioning. Reviewed vital signs,~Labs/ Radiology~and current medications noted below. Continue current treatment with the changes noted in the dictated addendum note Assessment: Vital Signs: Vital Signs Date Time Temp Pulse Resp B/P (MAP) Pulse Ox O2 Delivery O2 Flow Rate FiO2 03/05/17 19:23 20 03/05/17 16:05 98.0 78 107/64 (78) 97 03/04/17 18:49 Room Air I&O Intake and Output 03/06/17 07:00 Intake Total 420 ml Balance 420 ml Intake Oral 420 ml Labs: Laboratory Tests Test 03/05/17 07:09 03/05/17 11:22 03/05/17 16:37 03/05/17 19:26 Glucose (Fingerstick) 125 mg/dL (70-99) H 165 mg/dL (70-99) H 119 mg/dL (70-99) H 196 mg/dL (70-99) H Current Medications: Meds: Current Medications Acetaminophen (Tylenol) 650 mg PRN Q6HRS PRN PO PAIN / TEMP; Start 03/02/17 at 21:30 Multi-Ingredient Ointment (Analgesic [place]) 1 jasmyne PRN QID PRN TP MUSCLE PAIN Last administered on 03/02/17 22:32; Start 03/02/17 at 21:30 Al Hydroxide/Mg Hydroxide (Mylanta Plus Xs) 15 ml PRN AFTMEALHC PRN PO DYSPEPSIA; Start 03/02/17 at 21:30 Magnesium Hydroxide (Milk Of Magnesia) 2,400 mg PRN QHS PRN PO CONSTIPATION; Start 03/02/17 at 21:30 Aripiprazole (Abilify) 2 mg DAILY PO Last administered on 03/05/17 07:36; Start 03/03/17 at 09:00; Stop 03/05/17 at 12:09; Status DC Citalopram Hydrobromide (CeleXA) 20 mg DAILY PO Last administered on 03/04/17 09:30; Start 03/03/17 at 09:00; Stop 03/04/17 at 12:11; Status DC Donepezil HCl (Aricept) 10 mg DAILY PO Last administered on 03/05/17 07:36; Start 03/03/17 at 09:00 Lorazepam (Ativan) 0.5 mg PRN TID PRN PO ANXIETY / AGITATION; Start 03/02/17 at 21:30 Amlodipine Besylate (Norvasc) 5 mg DAILY PO Last administered on 03/05/17 07: 36; Start 03/03/17 at 09:00 Vitamin D (Vitamin D3) 5,000 unit DAILY PO Last administered on 03/05/17 07:35 ; Start 03/03/17 at 09:00 Clopidogrel Bisulfate (Plavix) 75 mg DAILY PO Last administered on 03/05/17 07 :36; Start 03/03/17 at 09:00 Cyanocobalamin (Vitamin B-12) 1,000 mcg DAILY PO Last administered on 07:36; Start 03/03/17 at 09:00 Acetaminophen/ Hydrocodone Bitart (Lortab 7.5/325) 1 tab QID PO Last administered on 03/05/17 19:23; Start 03/02/17 at 22:00 Insulin Detemir (Levemir) 25 units QHS SQ Last administered on 03/03/17 20:05 ; Start 03/02/17 at 22:00 Nystatin (Nystop) 1 jasmyne PRN BID PRN TP REDNESS Last administered on 03/03/17 08:04; Start 03/02/17 at 21:45 Pyridoxine HCl (Vitamin B-6) 100 mg DAILY PO Last administered on 03/05/17 07: 46; Start 03/03/17 at 09:00 Atorvastatin Calcium (Lipitor) 40 mg QHS PO Last administered on 03/05/17 19: 23; Start 03/02/17 at 22:00 Gabapentin (Neurontin) 600 mg TID PO Last administered on 03/05/17 19:23; Start 03/02/17 at 22:00 Vitamin B Complex 1 cap BID PO Last administered on 03/05/17 19:23; Start at 09:00 Multi-Ingred Cream/Lotion/Oil/ Oint (Artificial Tears Eye Oint) 1 jasmyne BID OU Last administered on 03/05/17 19:24; Start 03/02/17 at 22:00 Insulin Aspart (NovoLOG) 0-5 UNITS TIDWMEALS SQ Last administered on 03/05/17 13:38; Start 03/03/17 at 08:00 Dextrose 12.5 gm PRN Q15MIN PRN IV SEE COMMENTS; Start 03/02/17 at 21:45 Magnesium Oxide (Magnesium Oxide) 400 mg TID PO Last administered on 03/05/17 19:23; Start 03/03/17 at 21:00 Sodium Bicarbonate 650 mg BID PO Last administered on 03/05/17 19:24; Start at 21:00 Duloxetine HCl (Cymbalta) 30 mg DAILY PO Last administered on 03/05/17 07:46; Start 03/05/17 at 09:00 Aripiprazole (Abilify) 5 mg DAILY PO ; Start 03/06/17 at 09:00 Active Scripts Active Reported [place] 7.5-325 Tablet (Hydrocodone Bit/Acetaminophen) 1 Each Tablet 1 Tab PO QID Metanx Capsule (Levomefolate/B6/B12/Algal Oil) 1 Each Capsule 1 Cap PO BID Lorazepam 0.5 Mg Tablet 0.5 Mg PO PRN TID PRN Abilify (Aripiprazole) 2 Mg Tablet 2 Mg PO DAILY Celexa (Citalopram Hydrobromide) 20 Mg Tablet 20 Mg PO DAILY Neurontin (Gabapentin) 600 Mg Tablet 600 Mg PO TID [Arnicare Gel] 1 Jasmyne TOP PRN BID PRN Donepezil Hcl 10 Mg Tablet 10 Mg PO DAILY Levemir Flextouch (Insulin Detemir) 100 Unit/1 Ml Insuln.pen 25 Unit SQ QHS Klor-Con M20 (Potassium Chloride) 20 Meq Tab.er.prt 40 Meq PO DAILY Novolog Flexpen (Insulin Aspart) 100 Unit/1 Ml Insuln.pen 0-5 Unit SQ TIDWMEALS Nystatin 15 Gm Powder 1 Jasmyne TP PRN BID PRN Pyridoxine Hcl 100 Mg Tablet 100 Mg PO DAILY Norvasc (Amlodipine Besylate) 5 Mg Tablet 5 Mg PO DAILY Atorvastatin Calcium 40 Mg Tablet 40 Mg PO QHS Plavix (Clopidogrel Bisulfate) 75 Mg Tablet 75 Mg PO DAILY Refresh Lacri-Lube Ointment (Mineral Oil/Petrolatum,White) 3.5 Gm Oint...g. 1 Jasmyne OU BID Vitamin B-12 (Cyanocobalamin (Vitamin B-12)) 1,000 Mcg Tablet 1,000 Mcg PO DAILY Vitamin D3 (Cholecalciferol (Vitamin D3)) 1,000 Unit Tablet 5,000 Unit PO DAILY Diagnosis: Problems: (1) Anxiety disorder (2) Impulse control disorder (3) Major depressive disorder, recurrent episode (4) Dementia in Alzheimer's disease with depression (5) Dementia in Alzheimer's disease with delusions ALESSANDRA IBRAHIM MD Mar 05, 2017 19:59
[2017-03-05] MEDS: INSULIN DETEMIR 300 UNITS/3 ML INSULN.PEN. SQ SCH (20:09)
--- NOTE | 2017-03-06 03:12 | PN ---
DATE: 03/04/2017 PSYCHIATRIC PROGRESS NOTE This late entry 03/04/2017, covers elements not covered in my initial of 03/04/2017. I met with the patient in the evening of 03/04/2017. The patient's family visited. Per nursing report, the daughter shared that the daughter herself has a diagnosis of bipolar disorder and her moods can be labile at times. The patient has been calmer today and social when the daughter visited for lunch, otherwise somewhat sarcastic and "snippy." Per nursing report. REVIEW OF SYSTEMS: Ambulation impaired with a walker. No CV, , pulmonary, eye, ENT system symptoms on review. MENTAL STATUS EXAM: Oriented to herself and situation. Speech is coherent, abstraction fair, computation impaired, language function intact, attention span short, memory is impaired. Mood and affect lability is improved. LABORATORY DATA: Reviewed. IMPRESSION: Unchanged from initial note. PLAN: Continue current psychotropics, Aricept, Celexa, Abilify, and Ativan p.r.n. Given some of her mood lability, we will increase the Aricept to 5 mg a day starting 03/05/2017. MAN Elizabeth IBRAHIM MD DR: CARLA/faith JOB#: [id number] / [id number]
[2017-03-06 06:21] VITALS: BP 114/53
[2017-03-06] MEDS: DULoxetine HCL 30 MG CAPSULE.DR PO SCH (08:15)
[2017-03-06] MEDS: PYRIDOXINE 100 MG TABLET. PO SCH (08:16)
[2017-03-06] MEDS: amLODIPine BESYLATE 5 MG TABLET PO SCH (08:16)
[2017-03-06] MEDS: VITAMIN B COMPLEX CAPSULE. PO SCH ×2 (08:16→19:43)
[2017-03-06] MEDS: DONEPEZIL HCL 10 MG TABLET PO SCH (08:16)
[2017-03-06] MEDS: CLOPIDOGREL BISULFATE 75 MG TABLET PO SCH (08:16)
[2017-03-06] MEDS: CYANOCOBALAMIN (VITAMIN B-12) 1,000 MCG TABLET. PO SCH (08:16)
[2017-03-06] MEDS: MAGNESIUM OXIDE 400 MG TABLET PO SCH ×3 (08:16→19:43)
[2017-03-06] MEDS: HYDROcodone/APAP 7.5/325MG 1 TAB TABLET PO SCH ×4 (08:17→19:44)
[2017-03-06] MEDS: CHOLECALCIFEROL (VITAMIN D3) 1,000 UNIT TABLET PO SCH (08:17)
[2017-03-06] MEDS: GABAPENTIN 300 MG CAPSULE. PO SCH ×3 (08:17→19:42)
[2017-03-06] MEDS: SODIUM BICARBONATE 650 MG TABLET PO SCH ×2 (08:17→19:44)
[2017-03-06] MEDS: INSULIN ASPART 300 UNITS/3 ML INSULN.PEN SQ SCH ×3 (08:19→16:52)
[2017-03-06] MEDS: ARIPiprazole 5 MG TABLET PO SCH (08:21)
[2017-03-06] MEDS: MINERAL OIL/PETROLATUM,WHITE OPHTH OINT 3.5GM TUBE. OU SCH ×2 (08:22→19:42)
[2017-03-06 16:20] VITALS: BP 134/68
[2017-03-06] MEDS: ATORVASTATIN CALCIUM 20 MG TABLET PO SCH (19:43)
[2017-03-06] MEDS: INSULIN DETEMIR 300 UNITS/3 ML INSULN.PEN. SQ SCH (19:45)
--- NOTE | 2017-03-06 19:54 | PDOC ---
Exam Jam Demential Exam: Jam Note: Please also refer to the separate dictated note~for this date of service dictated separately.~Patient seen individually. Discussed the patient with Nursing staff reviewed the chart.~Reviewed interim history and current functioning. Reviewed vital signs,~Labs/ Radiology~and current medications noted below. Continue current treatment with the changes noted in the dictated addendum note Assessment: Vital Signs: Vital Signs Date Time Temp Pulse Resp B/P (MAP) Pulse Ox O2 Delivery O2 Flow Rate FiO2 03/06/17 19:44 20 03/06/17 16:20 97.4 87 134/68 (90) 96 03/04/17 18:49 Room Air I&O Intake and Output 03/07/17 07:00 Intake Total 800 ml Balance 800 ml Intake Oral 800 ml Labs: Laboratory Tests Test 03/06/17 07:22 03/06/17 11:29 03/06/17 16:43 03/06/17 19:37 Glucose (Fingerstick) 67 mg/dL (70-99) L 98 mg/dL (70-99) 144 mg/dL (70-99) H 180 mg/dL (70-99) H Current Medications: Meds: Current Medications Acetaminophen (Tylenol) 650 mg PRN Q6HRS PRN PO PAIN / TEMP; Start 03/02/17 at 21:30 Multi-Ingredient Ointment (Analgesic [place]) 1 jasmyne PRN QID PRN TP MUSCLE PAIN Last administered on 03/02/17 22:32; Start 03/02/17 at 21:30 Al Hydroxide/Mg Hydroxide (Mylanta Plus Xs) 15 ml PRN AFTMEALHC PRN PO DYSPEPSIA; Start 03/02/17 at 21:30 Magnesium Hydroxide (Milk Of Magnesia) 2,400 mg PRN QHS PRN PO CONSTIPATION; Start 03/02/17 at 21:30 Aripiprazole (Abilify) 2 mg DAILY PO Last administered on 03/05/17 07:36; Start 03/03/17 at 09:00; Stop 03/05/17 at 12:09; Status DC Citalopram Hydrobromide (CeleXA) 20 mg DAILY PO Last administered on 03/04/17 09:30; Start 03/03/17 at 09:00; Stop 03/04/17 at 12:11; Status DC Donepezil HCl (Aricept) 10 mg DAILY PO Last administered on 03/06/17 08:16; Start 03/03/17 at 09:00 Lorazepam (Ativan) 0.5 mg PRN TID PRN PO ANXIETY / AGITATION; Start 03/02/17 at 21:30 Amlodipine Besylate (Norvasc) 5 mg DAILY PO Last administered on 03/06/17 08: 16; Start 03/03/17 at 09:00 Vitamin D (Vitamin D3) 5,000 unit DAILY PO Last administered on 03/06/17 08:17 ; Start 03/03/17 at 09:00 Clopidogrel Bisulfate (Plavix) 75 mg DAILY PO Last administered on 03/06/17 08 :16; Start 03/03/17 at 09:00 Cyanocobalamin (Vitamin B-12) 1,000 mcg DAILY PO Last administered on 08:16; Start 03/03/17 at 09:00 Acetaminophen/ Hydrocodone Bitart (Lortab 7.5/325) 1 tab QID PO Last administered on 03/06/17 19:44; Start 03/02/17 at 22:00 Insulin Detemir (Levemir) 25 units QHS SQ Last administered on 03/06/17 19:45 ; Start 03/02/17 at 22:00 Nystatin (Nystop) 1 jasmyne PRN BID PRN TP REDNESS Last administered on 03/03/17 08:04; Start 03/02/17 at 21:45 Pyridoxine HCl (Vitamin B-6) 100 mg DAILY PO Last administered on 03/06/17 08: 16; Start 03/03/17 at 09:00 Atorvastatin Calcium (Lipitor) 40 mg QHS PO Last administered on 03/06/17 19: 43; Start 03/02/17 at 22:00 Gabapentin (Neurontin) 600 mg TID PO Last administered on 03/06/17 19:42; Start 03/02/17 at 22:00 Vitamin B Complex 1 cap BID PO Last administered on 03/06/17 19:43; Start at 09:00 Multi-Ingred Cream/Lotion/Oil/ Oint (Artificial Tears Eye Oint) 1 jasmyne BID OU Last administered on 03/06/17 19:42; Start 03/02/17 at 22:00 Insulin Aspart (NovoLOG) 0-5 UNITS TIDWMEALS SQ Last administered on 03/06/17 16:52; Start 03/03/17 at 08:00 Dextrose 12.5 gm PRN Q15MIN PRN IV SEE COMMENTS; Start 03/02/17 at 21:45 Magnesium Oxide (Magnesium Oxide) 400 mg TID PO Last administered on 03/06/17 19:43; Start 03/03/17 at 21:00 Sodium Bicarbonate 650 mg BID PO Last administered on 03/06/17 19:44; Start at 21:00 Duloxetine HCl (Cymbalta) 30 mg DAILY PO Last administered on 03/06/17 08:15; Start 03/05/17 at 09:00 Aripiprazole (Abilify) 5 mg DAILY PO Last administered on 03/06/17 08:21; Start 03/06/17 at 09:00 Active Scripts Active Reported [place] 7.5-325 Tablet (Hydrocodone Bit/Acetaminophen) 1 Each Tablet 1 Tab PO QID Metanx Capsule (Levomefolate/B6/B12/Algal Oil) 1 Each Capsule 1 Cap PO BID Lorazepam 0.5 Mg Tablet 0.5 Mg PO PRN TID PRN Abilify (Aripiprazole) 2 Mg Tablet 2 Mg PO DAILY Celexa (Citalopram Hydrobromide) 20 Mg Tablet 20 Mg PO DAILY Neurontin (Gabapentin) 600 Mg Tablet 600 Mg PO TID [Arnicare Gel] 1 Jasmyne TOP PRN BID PRN Donepezil Hcl 10 Mg Tablet 10 Mg PO DAILY Levemir Flextouch (Insulin Detemir) 100 Unit/1 Ml Insuln.pen 25 Unit SQ QHS Klor-Con M20 (Potassium Chloride) 20 Meq Tab.er.prt 40 Meq PO DAILY Novolog Flexpen (Insulin Aspart) 100 Unit/1 Ml Insuln.pen 0-5 Unit SQ TIDWMEALS Nystatin 15 Gm Powder 1 Jasmyne TP PRN BID PRN Pyridoxine Hcl 100 Mg Tablet 100 Mg PO DAILY Norvasc (Amlodipine Besylate) 5 Mg Tablet 5 Mg PO DAILY Atorvastatin Calcium 40 Mg Tablet 40 Mg PO QHS Plavix (Clopidogrel Bisulfate) 75 Mg Tablet 75 Mg PO DAILY Refresh Lacri-Lube Ointment (Mineral Oil/Petrolatum,White) 3.5 Gm Oint...g. 1 Jasmyne OU BID Vitamin B-12 (Cyanocobalamin (Vitamin B-12)) 1,000 Mcg Tablet 1,000 Mcg PO DAILY Vitamin D3 (Cholecalciferol (Vitamin D3)) 1,000 Unit Tablet 5,000 Unit PO DAILY Diagnosis: Problems: (1) Anxiety disorder (2) Impulse control disorder (3) Major depressive disorder, recurrent episode (4) Dementia in Alzheimer's disease with depression (5) Dementia in Alzheimer's disease with delusions ALESSANDRA IBRAHIM MD Mar 06, 2017 19:54
--- NOTE | 2017-03-07 05:34 | PN ---
DATE: 03/05/2017 This late entry for 03/05/2017 covers elements not covered in my initial note of 03/05/2017. SUBJECTIVE: I met with the patient in the evening of 03/05/2017. The patient refused her evening medications and per nursing report, she went "crazy" previous night. She was agitated, combative and delusional, intermittently better during the day on 03/05/2017. REVIEW OF SYSTEMS: Ambulation impaired with walker. No CV, , pulmonary, eye, ENT system symptoms on review. Reliability poor. MENTAL STATUS EXAM: Oriented to herself and situation. Speech is coherent, abstraction fair, computation impaired. Insight, judgment, recent and remote memory, attention, concentration, fund of knowledge poor, consistent with her diagnosis mentioned in my initial note. PLAN: Continue current psychotropics, Aricept, Cymbalta, Ativan p.r.n. Abilify was increased to 5 mg a day and may change to Seroquel if mood lability, psychosis persists despite this. Reviewed drug interactions. Risk/benefit ratio favors no further change. ALESSANDRA IBRAHIM MD DR: CARLA/faith JOB#: [id number] / [id number]
[2017-03-07 06:12] VITALS: BP 125/65
[2017-03-07] MEDS: INSULIN ASPART 300 UNITS/3 ML INSULN.PEN SQ SCH ×3 (08:00→17:00)
[2017-03-07] MEDS: MAGNESIUM OXIDE 400 MG TABLET PO SCH ×3 (09:11→20:27)
[2017-03-07] MEDS: CHOLECALCIFEROL (VITAMIN D3) 1,000 UNIT TABLET PO SCH (09:11)
[2017-03-07] MEDS: ARIPiprazole 5 MG TABLET PO SCH (09:11)
[2017-03-07] MEDS: VITAMIN B COMPLEX CAPSULE. PO SCH ×2 (09:11→20:26)
[2017-03-07] MEDS: CYANOCOBALAMIN (VITAMIN B-12) 1,000 MCG TABLET. PO SCH (09:11)
[2017-03-07] MEDS: GABAPENTIN 300 MG CAPSULE. PO SCH ×3 (09:12→20:26)
[2017-03-07] MEDS: PYRIDOXINE 100 MG TABLET. PO SCH (09:12)
[2017-03-07] MEDS: amLODIPine BESYLATE 5 MG TABLET PO SCH (09:12)
[2017-03-07] MEDS: SODIUM BICARBONATE 650 MG TABLET PO SCH ×2 (09:12→20:27)
[2017-03-07] MEDS: DULoxetine HCL 30 MG CAPSULE.DR PO SCH (09:12)
[2017-03-07] MEDS: CLOPIDOGREL BISULFATE 75 MG TABLET PO SCH (09:12)
[2017-03-07] MEDS: DONEPEZIL HCL 10 MG TABLET PO SCH (09:12)
[2017-03-07] MEDS: HYDROcodone/APAP 7.5/325MG 1 TAB TABLET PO SCH ×4 (09:13→20:42)
[2017-03-07] MEDS: POLYVINYL ALCOHOL 1.4% OPHTH SOLUTION 15ML BOTTLE. OU SCH ×2 (09:15→20:29)
[2017-03-07 15:51] VITALS: BP 144/88
--- NOTE | 2017-03-07 19:49 | PDOC ---
Exam Jam Demential Exam: Jam Note: Please also refer to the separate dictated note~for this date of service dictated separately.~Patient seen individually. Discussed the patient with Nursing staff reviewed the chart.~Reviewed interim history and current functioning. Reviewed vital signs,~Labs/ Radiology~and current medications noted below. Continue current treatment with the changes noted in the dictated addendum note Assessment: Vital Signs: Vital Signs Date Time Temp Pulse Resp B/P (MAP) Pulse Ox O2 Delivery O2 Flow Rate FiO2 03/07/17 15:51 97.4 76 20 144/88 (106) 99 03/06/17 20:44 Room Air I&O Intake and Output 03/08/17 07:00 Intake Total 960 ml Balance 960 ml Intake Oral 960 ml # Bowel Movements 1 Labs: Laboratory Tests Test 03/07/17 07:22 03/07/17 11:26 03/07/17 16:25 Glucose (Fingerstick) 70 mg/dL (70-99) 197 mg/dL (70-99) H 130 mg/dL (70-99) H Current Medications: Meds: Current Medications Acetaminophen (Tylenol) 650 mg PRN Q6HRS PRN PO PAIN / TEMP; Start 03/02/17 at 21:30 Multi-Ingredient Ointment (Analgesic [place]) 1 jasmyne PRN QID PRN TP MUSCLE PAIN Last administered on 03/02/17 22:32; Start 03/02/17 at 21:30 Al Hydroxide/Mg Hydroxide (Mylanta Plus Xs) 15 ml PRN AFTMEALHC PRN PO DYSPEPSIA; Start 03/02/17 at 21:30 Magnesium Hydroxide (Milk Of Magnesia) 2,400 mg PRN QHS PRN PO CONSTIPATION; Start 03/02/17 at 21:30 Aripiprazole (Abilify) 2 mg DAILY PO Last administered on 03/05/17 07:36; Start 03/03/17 at 09:00; Stop 03/05/17 at 12:09; Status DC Citalopram Hydrobromide (CeleXA) 20 mg DAILY PO Last administered on 03/04/17 09:30; Start 03/03/17 at 09:00; Stop 03/04/17 at 12:11; Status DC Donepezil HCl (Aricept) 10 mg DAILY PO Last administered on 03/07/17 09:12; Start 03/03/17 at 09:00 Lorazepam (Ativan) 0.5 mg PRN TID PRN PO ANXIETY / AGITATION; Start 03/02/17 at 21:30 Amlodipine Besylate (Norvasc) 5 mg DAILY PO Last administered on 03/07/17 09: 12; Start 03/03/17 at 09:00 Vitamin D (Vitamin D3) 5,000 unit DAILY PO Last administered on 03/07/17 09:11 ; Start 03/03/17 at 09:00 Clopidogrel Bisulfate (Plavix) 75 mg DAILY PO Last administered on 03/07/17 09 :12; Start 03/03/17 at 09:00 Cyanocobalamin (Vitamin B-12) 1,000 mcg DAILY PO Last administered on 09:11; Start 03/03/17 at 09:00 Acetaminophen/ Hydrocodone Bitart (Lortab 7.5/325) 1 tab QID PO Last administered on 03/07/17 17:47; Start 03/02/17 at 22:00 Insulin Detemir (Levemir) 25 units QHS SQ Last administered on 03/06/17 19:45 ; Start 03/02/17 at 22:00 Nystatin (Nystop) 1 jasmyne PRN BID PRN TP REDNESS Last administered on 03/03/17 08:04; Start 03/02/17 at 21:45 Pyridoxine HCl (Vitamin B-6) 100 mg DAILY PO Last administered on 03/07/17 09: 12; Start 03/03/17 at 09:00 Atorvastatin Calcium (Lipitor) 40 mg QHS PO Last administered on 03/06/17 19: 43; Start 03/02/17 at 22:00 Gabapentin (Neurontin) 600 mg TID PO Last administered on 03/07/17 14:01; Start 03/02/17 at 22:00 Vitamin B Complex 1 cap BID PO Last administered on 03/07/17 09:11; Start at 09:00 Multi-Ingred Cream/Lotion/Oil/ Oint (Artificial Tears Eye Oint) 1 jasmyne BID OU Last administered on 03/06/17 19:42; Start 03/02/17 at 22:00; Stop 03/06/17 at 21:23; Status DC Insulin Aspart (NovoLOG) 0-5 UNITS TIDWMEALS SQ Last administered on 03/07/17 12:14; Start 03/03/17 at 08:00 Dextrose 12.5 gm PRN Q15MIN PRN IV SEE COMMENTS; Start 03/02/17 at 21:45 Magnesium Oxide (Magnesium Oxide) 400 mg TID PO Last administered on 03/07/17 14:01; Start 03/03/17 at 21:00 Sodium Bicarbonate 650 mg BID PO Last administered on 03/07/17 09:12; Start at 21:00 Duloxetine HCl (Cymbalta) 30 mg DAILY PO Last administered on 03/07/17 09:12; Start 03/05/17 at 09:00 Aripiprazole (Abilify) 5 mg DAILY PO Last administered on 03/07/17 09:11; Start 03/06/17 at 09:00 Artificial Tears (Artificial Tears) 1 drop BID OU Last administered on 09:15; Start 03/07/17 at 09:00 Active Scripts Active Reported [place] 7.5-325 Tablet (Hydrocodone Bit/Acetaminophen) 1 Each Tablet 1 Tab PO QID Metanx Capsule (Levomefolate/B6/B12/Algal Oil) 1 Each Capsule 1 Cap PO BID Lorazepam 0.5 Mg Tablet 0.5 Mg PO PRN TID PRN Abilify (Aripiprazole) 2 Mg Tablet 2 Mg PO DAILY Celexa (Citalopram Hydrobromide) 20 Mg Tablet 20 Mg PO DAILY Neurontin (Gabapentin) 600 Mg Tablet 600 Mg PO TID [Arnicare Gel] 1 Jasmyne TOP PRN BID PRN Donepezil Hcl 10 Mg Tablet 10 Mg PO DAILY Levemir Flextouch (Insulin Detemir) 100 Unit/1 Ml Insuln.pen 25 Unit SQ QHS Klor-Con M20 (Potassium Chloride) 20 Meq Tab.er.prt 40 Meq PO DAILY Novolog Flexpen (Insulin Aspart) 100 Unit/1 Ml Insuln.pen 0-5 Unit SQ TIDWMEALS Nystatin 15 Gm Powder 1 Jasmyne TP PRN BID PRN Pyridoxine Hcl 100 Mg Tablet 100 Mg PO DAILY Norvasc (Amlodipine Besylate) 5 Mg Tablet 5 Mg PO DAILY Atorvastatin Calcium 40 Mg Tablet 40 Mg PO QHS Plavix (Clopidogrel Bisulfate) 75 Mg Tablet 75 Mg PO DAILY Refresh Lacri-Lube Ointment (Mineral Oil/Petrolatum,White) 3.5 Gm Oint...g. 1 Jasmyne OU BID Vitamin B-12 (Cyanocobalamin (Vitamin B-12)) 1,000 Mcg Tablet 1,000 Mcg PO DAILY Vitamin D3 (Cholecalciferol (Vitamin D3)) 1,000 Unit Tablet 5,000 Unit PO DAILY Diagnosis: Problems: (1) Anxiety disorder (2) Impulse control disorder (3) Major depressive disorder, recurrent episode (4) Dementia in Alzheimer's disease with depression (5) Dementia in Alzheimer's disease with delusions ALESSANDRA IBRAHIM MD Mar 07, 2017 19:49
[2017-03-07] MEDS: ATORVASTATIN CALCIUM 20 MG TABLET PO SCH (20:26)
[2017-03-07] MEDS: INSULIN DETEMIR 300 UNITS/3 ML INSULN.PEN. SQ SCH (20:32)
--- NOTE | 2017-03-08 05:17 | PN ---
DATE: 03/06/2017 PSYCHIATRIC PROGRESS NOTE This late entry 03/06/2017, covers elements not covered in my initial note of 03/06/2017. I met with the patient evening of 03/06/2017. The patient was quite irritable the morning of 03/06/2017, was tearful, crying at times, talking about her dog having cancer. REVIEW OF SYSTEMS: Ambulation impaired, with a walker. No CV, , pulmonary, eye, ENT system symptoms on review. MENTAL STATUS EXAM: Oriented to herself and situation. Speech is coherent, pleasant, verbal, as I met with her, smiling. Abstraction fair, computation impaired, language function intact, attention span short. Mood and affect, somewhat anxious, labile at times. LABORATORY DATA: Reviewed. IMPRESSION: Unchanged from initial note. PLAN: Abilify was added at 5 mg a day, continue Aricept, Cymbalta, Ativan p.r.n. reviewed drug interactions, risk/benefit ratio favors no further change at this time. ALESSANDRA IBRAHIM MD DR: CARLA/faith JOB#: [id number] / [id number]
[2017-03-08 05:48] VITALS: BP 131/69
[2017-03-08] MEDS: INSULIN ASPART 300 UNITS/3 ML INSULN.PEN SQ SCH ×3 (08:00→17:18)
[2017-03-08] MEDS: CHOLECALCIFEROL (VITAMIN D3) 1,000 UNIT TABLET PO SCH (08:03)
[2017-03-08] MEDS: DONEPEZIL HCL 10 MG TABLET PO SCH (08:03)
[2017-03-08] MEDS: CLOPIDOGREL BISULFATE 75 MG TABLET PO SCH (08:03)
[2017-03-08] MEDS: GABAPENTIN 300 MG CAPSULE. PO SCH ×3 (08:04→20:19)
[2017-03-08] MEDS: ARIPiprazole 5 MG TABLET PO SCH (08:04)
[2017-03-08] MEDS: VITAMIN B COMPLEX CAPSULE. PO SCH ×2 (08:04→20:19)
[2017-03-08] MEDS: amLODIPine BESYLATE 5 MG TABLET PO SCH (08:11)
[2017-03-08] MEDS: DULoxetine HCL 30 MG CAPSULE.DR PO SCH (08:11)
[2017-03-08] MEDS: CYANOCOBALAMIN (VITAMIN B-12) 1,000 MCG TABLET. PO SCH (08:11)
[2017-03-08] MEDS: MAGNESIUM OXIDE 400 MG TABLET PO SCH ×3 (08:11→20:19)
[2017-03-08] MEDS: PYRIDOXINE 100 MG TABLET. PO SCH (08:16)
[2017-03-08] MEDS: SODIUM BICARBONATE 650 MG TABLET PO SCH ×2 (08:16→20:21)
[2017-03-08] MEDS: POLYVINYL ALCOHOL 1.4% OPHTH SOLUTION 15ML BOTTLE. OU SCH ×2 (08:16→20:19)
[2017-03-08] MEDS: HYDROcodone/APAP 7.5/325MG 1 TAB TABLET PO SCH ×4 (08:17→20:21)
[2017-03-08 10:18] LABS: BASO # 0.1 x10^3/uL (0.0-0.2); BASO % 1 % (0-3); EOS # 0.2 x10^3/uL (0.0-0.7); EOS % 2 % (0-3); HEMATOCRIT 34.9 % (36.0-47.0); HEMOGLOBIN 12.1 g/dL (12.0-15.5); LYMPH # 1.7 x10^3/uL (1.0-4.8); LYMPH % 23 % (24-48); MEAN CORPUSCULAR HEMOGLOBIN 33 pg (25-35); MEAN CORPUSCULAR HGB CONC 35 g/dL (31-37); MEAN CORPUSCULAR VOLUME 94 fL (79-100); MONO % 14 % (0-9); NEUT # 4.5 x10^3uL (1.8-7.7); NEUT % 60 % (31-73); PLATELET COUNT 266 x10^3/uL (140-400); RED CELL DISTRIBUTION WIDTH 12.8 % (11.5-14.5); WHITE BLOOD COUNT 7.4 x10^3/uL (4.0-11.0)
[2017-03-08 10:33] LABS: ALBUMIN 3.9 g/dL (3.4-5.0); ALBUMIN/GLOBULIN RATIO 1.1 (1.0-1.7); CREATININE 1.2 mg/dL (0.6-1.0); GFR 43.4; POTASSIUM 4.8 mmol/L (3.5-5.1); TOTAL BILIRUBIN 0.6 mg/dL (0.2-1.0); TOTAL PROTEIN 7.5 g/dL (6.4-8.2)
[2017-03-08] MEDS: FLUTICASONE 50MCG/NASAL SPRAY 16GM BOTTLE. NS SCH (13:15)
[2017-03-08] MEDS: ATORVASTATIN CALCIUM 20 MG TABLET PO SCH (20:19)
[2017-03-08] MEDS: INSULIN DETEMIR 300 UNITS/3 ML INSULN.PEN. SQ SCH (20:22)
--- NOTE | 2017-03-08 21:18 | PDOC ---
Exam Jam Demential Exam: Jam Note: Please also refer to the separate dictated note~for this date of service dictated separately.~Patient seen individually. Discussed the patient with Nursing staff reviewed the chart.~Reviewed interim history and current functioning. Reviewed vital signs,~Labs/ Radiology~and current medications noted below. Continue current treatment with the changes noted in the dictated addendum note Assessment: Vital Signs: Vital Signs Date Time Temp Pulse Resp B/P (MAP) Pulse Ox O2 Delivery O2 Flow Rate FiO2 03/08/17 20:21 Room Air 03/08/17 18:52 16 98 03/08/17 08:11 76 131/69 03/08/17 05:48 98.2 I&O Intake and Output 03/09/17 07:00 Intake Total 960 ml Balance 960 ml Intake Oral 960 ml Labs: Laboratory Tests Test 03/08/17 07:19 03/08/17 09:58 03/08/17 11:36 03/08/17 16:45 Glucose (Fingerstick) 79 mg/dL (70-99) 109 mg/dL (70-99) H 197 mg/dL (70-99) H White Blood Count 7.4 x10^3/uL (4.0-11.0) Red Blood Count 3.70 x10^6/uL (3.50-5.40) Hemoglobin 12.1 g/dL (12.0-15.5) Hematocrit 34.9 % (36.0-47.0) L Mean Corpuscular Volume 94 fL (79-100) Mean Corpuscular Hemoglobin 33 pg (25-35) Mean Corpuscular Hemoglobin Concent 35 g/dL (31-37) Red Cell Distribution Width 12.8 % (11.5-14.5) Platelet Count 266 x10^3/uL (140-400) Neutrophils (%) (Auto) 60 % (31-73) Lymphocytes (%) (Auto) 23 % (24-48) L Monocytes (%) (Auto) 14 % (0-9) H Eosinophils (%) (Auto) 2 % (0-3) Basophils (%) (Auto) 1 % (0-3) Neutrophils # (Auto) 4.5 x10^3uL (1.8-7.7) Lymphocytes # (Auto) 1.7 x10^3/uL (1.0-4.8) Monocytes # (Auto) 1.0 x10^3/uL (0.0-1.1) Eosinophils # (Auto) 0.2 x10^3/uL (0.0-0.7) Basophils # (Auto) 0.1 x10^3/uL (0.0-0.2) Sodium Level 135 mmol/L (136-145) L Potassium Level 4.8 mmol/L (3.5-5.1) Chloride Level 99 mmol/L (98-107) Carbon Dioxide Level 30 mmol/L (21-32) Anion Gap 6 (6-14) Blood Urea Nitrogen 20 mg/dL (7-20) Creatinine 1.2 mg/dL (0.6-1.0) H Estimated GFR (Cockcroft-Gault) 43.4 BUN/Creatinine Ratio 17 (6-20) Glucose Level 131 mg/dL (70-99) H Calcium Level 10.0 mg/dL (8.5-10.1) Magnesium Level 2.0 mg/dL (1.8-2.4) Total Bilirubin 0.6 mg/dL (0.2-1.0) Aspartate Amino Transferase (AST) 29 U/L (15-37) Alanine Aminotransferase (ALT) 34 U/L (14-59) Alkaline Phosphatase 137 U/L (46-116) H Total Protein 7.5 g/dL (6.4-8.2) Albumin 3.9 g/dL (3.4-5.0) Albumin/Globulin Ratio 1.1 (1.0-1.7) Test 03/08/17 18:58 Glucose (Fingerstick) 144 mg/dL (70-99) H Current Medications: Meds: Current Medications Acetaminophen (Tylenol) 650 mg PRN Q6HRS PRN PO PAIN / TEMP; Start 03/02/17 at 21:30 Multi-Ingredient Ointment (Analgesic [place]) 1 jasmyne PRN QID PRN TP MUSCLE PAIN Last administered on 03/02/17t 22:32; Start 03/02/17 at 21:30 Al Hydroxide/Mg Hydroxide (Mylanta Plus Xs) 15 ml PRN AFTMEALHC PRN PO DYSPEPSIA; Start 03/02/17 at 21:30 Magnesium Hydroxide (Milk Of Magnesia) 2,400 mg PRN QHS PRN PO CONSTIPATION; Start 03/02/17 at 21:30 Aripiprazole (Abilify) 2 mg DAILY PO Last administered on 03/05/17 07:36; Start 03/03/17 at 09:00; Stop 03/05/17 at 12:09; Status DC Citalopram Hydrobromide (CeleXA) 20 mg DAILY PO Last administered on 03/04/17 09:30; Start 03/03/17 at 09:00; Stop 03/04/17 at 12:11; Status DC Donepezil HCl (Aricept) 10 mg DAILY PO Last administered on 03/08/17 08:03; Start 03/03/17 at 09:00 Lorazepam (Ativan) 0.5 mg PRN TID PRN PO ANXIETY / AGITATION; Start 03/02/17 at 21:30 Amlodipine Besylate (Norvasc) 5 mg DAILY PO Last administered on 03/08/17 08: 11; Start 03/03/17 at 09:00 Vitamin D (Vitamin D3) 5,000 unit DAILY PO Last administered on 03/08/17 08:03 ; Start 03/03/17 at 09:00 Clopidogrel Bisulfate (Plavix) 75 mg DAILY PO Last administered on 03/08/17 08 :03; Start 03/03/17 at 09:00 Cyanocobalamin (Vitamin B-12) 1,000 mcg DAILY PO Last administered on 08:11; Start 03/03/17 at 09:00 Acetaminophen/ Hydrocodone Bitart (Lortab 7.5/325) 1 tab QID PO Last administered on 03/08/17 20:21; Start 03/02/17 at 22:00 Insulin Detemir (Levemir) 25 units QHS SQ Last administered on 03/08/17 20:22 ; Start 03/02/17 at 22:00 Nystatin (Nystop) 1 jasmyne PRN BID PRN TP REDNESS Last administered on 03/03/17 08:04; Start 03/02/17 at 21:45 Pyridoxine HCl (Vitamin B-6) 100 mg DAILY PO Last administered on 03/08/17 08: 16; Start 03/03/17 at 09:00 Atorvastatin Calcium (Lipitor) 40 mg QHS PO Last administered on 03/08/17 20: 19; Start 03/02/17 at 22:00 Gabapentin (Neurontin) 600 mg TID PO Last administered on 03/08/17 20:19; Start 03/02/17 at 22:00 Vitamin B Complex 1 cap BID PO Last administered on 03/08/17 20:19; Start at 09:00 Multi-Ingred Cream/Lotion/Oil/ Oint (Artificial Tears Eye Oint) 1 jasmyne BID OU Last administered on 03/06/17 19:42; Start 03/02/17 at 22:00; Stop 03/06/17 at 21:23; Status DC Insulin Aspart (NovoLOG) 0-5 UNITS TIDWMEALS SQ Last administered on 03/08/17 17:18; Start 03/03/17 at 08:00 Dextrose 12.5 gm PRN Q15MIN PRN IV SEE COMMENTS; Start 03/02/17 at 21:45 Magnesium Oxide (Magnesium Oxide) 400 mg TID PO Last administered on 03/08/17 20:19; Start 03/03/17 at 21:00 Sodium Bicarbonate 650 mg BID PO Last administered on 03/08/17 20:21; Start at 21:00 Duloxetine HCl (Cymbalta) 30 mg DAILY PO Last administered on 03/08/17 08:11; Start 03/05/17 at 09:00 Aripiprazole (Abilify) 5 mg DAILY PO Last administered on 03/08/17 08:04; Start 03/06/17 at 09:00 Artificial Tears (Artificial Tears) 1 drop BID OU Last administered on 20:19; Start 03/07/17 at 09:00 Fluticasone Propionate (Flonase) 2 spray DAILY NS ; Start 03/08/17 at 13:15 Active Scripts Active Reported [place] 7.5-325 Tablet (Hydrocodone Bit/Acetaminophen) 1 Each Tablet 1 Tab PO QID Metanx Capsule (Levomefolate/B6/B12/Algal Oil) 1 Each Capsule 1 Cap PO BID Lorazepam 0.5 Mg Tablet 0.5 Mg PO PRN TID PRN Abilify (Aripiprazole) 2 Mg Tablet 2 Mg PO DAILY Celexa (Citalopram Hydrobromide) 20 Mg Tablet 20 Mg PO DAILY Neurontin (Gabapentin) 600 Mg Tablet 600 Mg PO TID [Arnicare Gel] 1 Jasmyne TOP PRN BID PRN Donepezil Hcl 10 Mg Tablet 10 Mg PO DAILY Levemir Flextouch (Insulin Detemir) 100 Unit/1 Ml Insuln.pen 25 Unit SQ QHS Klor-Con M20 (Potassium Chloride) 20 Meq Tab.er.prt 40 Meq PO DAILY Novolog Flexpen (Insulin Aspart) 100 Unit/1 Ml Insuln.pen 0-5 Unit SQ TIDWMEALS Nystatin 15 Gm Powder 1 Jasmyne TP PRN BID PRN Pyridoxine Hcl 100 Mg Tablet 100 Mg PO DAILY Norvasc (Amlodipine Besylate) 5 Mg Tablet 5 Mg PO DAILY Atorvastatin Calcium 40 Mg Tablet 40 Mg PO QHS Plavix (Clopidogrel Bisulfate) 75 Mg Tablet 75 Mg PO DAILY Refresh Lacri-Lube Ointment (Mineral Oil/Petrolatum,White) 3.5 Gm Oint...g. 1 Jasmyne OU BID Vitamin B-12 (Cyanocobalamin (Vitamin B-12)) 1,000 Mcg Tablet 1,000 Mcg PO DAILY Vitamin D3 (Cholecalciferol (Vitamin D3)) 1,000 Unit Tablet 5,000 Unit PO DAILY Diagnosis: Problems: (1) Anxiety disorder (2) Impulse control disorder (3) Major depressive disorder, recurrent episode (4) Dementia in Alzheimer's disease with depression (5) Dementia in Alzheimer's disease with delusions ALESSANDRA IBRAHIM MD Mar 08, 2017 21:18
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
[2017-03-09 06:02] VITALS: BP 126/67
[2017-03-09] MEDS: INSULIN ASPART 300 UNITS/3 ML INSULN.PEN SQ SCH ×3 (08:00→17:18)
[2017-03-09] MEDS: MAGNESIUM OXIDE 400 MG TABLET PO SCH ×4 (08:09→19:50)
[2017-03-09] MEDS: CHOLECALCIFEROL (VITAMIN D3) 1,000 UNIT TABLET PO SCH ×2 (08:09→09:00)
[2017-03-09] MEDS: VITAMIN B COMPLEX CAPSULE. PO SCH ×3 (08:09→19:49)
[2017-03-09] MEDS: GABAPENTIN 300 MG CAPSULE. PO SCH ×4 (08:09→19:50)
[2017-03-09] MEDS: ARIPiprazole 5 MG TABLET PO SCH ×2 (08:09→09:40)
[2017-03-09] MEDS: amLODIPine BESYLATE 5 MG TABLET PO SCH ×2 (08:10→09:40)
[2017-03-09] MEDS: SODIUM BICARBONATE 650 MG TABLET PO SCH ×3 (08:15→19:58)
[2017-03-09] MEDS: CLOPIDOGREL BISULFATE 75 MG TABLET PO SCH ×2 (08:15→09:40)
[2017-03-09] MEDS: POLYVINYL ALCOHOL 1.4% OPHTH SOLUTION 15ML BOTTLE. OU SCH ×3 (08:16→19:49)
[2017-03-09] MEDS: DONEPEZIL HCL 10 MG TABLET PO SCH ×2 (08:16→09:40)
[2017-03-09] MEDS: FLUTICASONE 50MCG/NASAL SPRAY 16GM BOTTLE. NS SCH ×2 (08:16→09:40)
[2017-03-09] MEDS: PYRIDOXINE 100 MG TABLET. PO SCH ×2 (08:16→09:40)
[2017-03-09] MEDS: CYANOCOBALAMIN (VITAMIN B-12) 1,000 MCG TABLET. PO SCH ×2 (08:16→09:40)
[2017-03-09] MEDS: DULoxetine HCL 30 MG CAPSULE.DR PO SCH ×2 (08:16→09:40)
[2017-03-09] MEDS: HYDROcodone/APAP 7.5/325MG 1 TAB TABLET PO SCH ×5 (08:16→19:50)
[2017-03-09] MEDS ORDERED: DEXTROSE ORAL GEL 15 GM TUBE. ONE (11:38)
[2017-03-09] MEDS: DIVALPROEX 125 MG CAP.SPRINK PO SCH (13:41)
[2017-03-09 16:30] VITALS: BP 125/84
[2017-03-09] MEDS: ATORVASTATIN CALCIUM 20 MG TABLET PO SCH (19:50)
[2017-03-09] MEDS: INSULIN DETEMIR 300 UNITS/3 ML INSULN.PEN. SQ SCH (19:52)
--- NOTE | 2017-03-09 21:13 | PDOC ---
Exam Jam Demential Exam: Jam Note: Please also refer to the separate dictated note~for this date of service dictated separately.~Patient seen individually. Discussed the patient with Nursing staff reviewed the chart.~Reviewed interim history and current functioning. Reviewed vital signs,~Labs/ Radiology~and current medications noted below. Continue current treatment with the changes noted in the dictated addendum note Assessment: Vital Signs: Vital Signs Date Time Temp Pulse Resp B/P (MAP) Pulse Ox O2 Delivery O2 Flow Rate FiO2 03/09/17 20:53 97 Room Air 03/09/17 19:00 18 03/09/17 16:30 98.9 81 125/84 (98) I&O Intake and Output 03/10/17 07:00 Intake Total 180 ml Balance 180 ml Intake Oral 180 ml # Bowel Movements 1 Labs: Laboratory Tests Test 03/09/17 07:53 03/09/17 11:25 03/09/17 13:01 03/09/17 16:46 Glucose (Fingerstick) 81 mg/dL (70-99) 63 mg/dL (70-99) L 103 mg/dL (70-99) H 204 mg/dL (70-99) H Test 03/09/17 18:52 Glucose (Fingerstick) 227 mg/dL (70-99) H Current Medications: Meds: Current Medications Acetaminophen (Tylenol) 650 mg PRN Q6HRS PRN PO PAIN / TEMP; Start 03/02/17 at 21:30 Multi-Ingredient Ointment (Analgesic [place]) 1 jasmyne PRN QID PRN TP MUSCLE PAIN Last administered on 03/02/17 22:32; Start 03/02/17 at 21:30 Al Hydroxide/Mg Hydroxide (Mylanta Plus Xs) 15 ml PRN AFTMEALHC PRN PO DYSPEPSIA; Start 03/02/17 at 21:30 Magnesium Hydroxide (Milk Of Magnesia) 2,400 mg PRN QHS PRN PO CONSTIPATION; Start 03/02/17 at 21:30 Aripiprazole (Abilify) 2 mg DAILY PO Last administered on 03/05/17 07:36; Start 03/03/17 at 09:00; Stop 03/05/17 at 12:09; Status DC Citalopram Hydrobromide (CeleXA) 20 mg DAILY PO Last administered on 03/04/17 09:30; Start 03/03/17 at 09:00; Stop 03/04/17 at 12:11; Status DC Donepezil HCl (Aricept) 10 mg DAILY PO Last administered on 03/08/17 08:03; Start 03/03/17 at 09:00 Lorazepam (Ativan) 0.5 mg PRN TID PRN PO ANXIETY / AGITATION; Start 03/02/17 at 21:30 Amlodipine Besylate (Norvasc) 5 mg DAILY PO Last administered on 03/08/17 08: 11; Start 03/03/17 at 09:00 Vitamin D (Vitamin D3) 5,000 unit DAILY PO Last administered on 03/08/17 08:03 ; Start 03/03/17 at 09:00 Clopidogrel Bisulfate (Plavix) 75 mg DAILY PO Last administered on 03/08/17 08 :03; Start 03/03/17 at 09:00 Cyanocobalamin (Vitamin B-12) 1,000 mcg DAILY PO Last administered on 08:11; Start 03/03/17 at 09:00 Acetaminophen/ Hydrocodone Bitart (Lortab 7.5/325) 1 tab QID PO Last administered on 03/09/17 19:50; Start 03/02/17 at 22:00 Insulin Detemir (Levemir) 25 units QHS SQ Last administered on 03/09/17 19:52 ; Start 03/02/17 at 22:00 Nystatin (Nystop) 1 jasmyne PRN BID PRN TP REDNESS Last administered on 03/03/17 08:04; Start 03/02/17 at 21:45 Pyridoxine HCl (Vitamin B-6) 100 mg DAILY PO Last administered on 03/08/17 08: 16; Start 03/03/17 at 09:00 Atorvastatin Calcium (Lipitor) 40 mg QHS PO Last administered on 03/09/17 19: 50; Start 03/02/17 at 22:00 Gabapentin (Neurontin) 600 mg TID PO Last administered on 03/09/17 19:50; Start 03/02/17 at 22:00 Vitamin B Complex 1 cap BID PO Last administered on 03/09/17 19:49; Start at 09:00 Multi-Ingred Cream/Lotion/Oil/ Oint (Artificial Tears Eye Oint) 1 jasmyne BID OU Last administered on 03/06/17 19:42; Start 03/02/17 at 22:00; Stop 03/06/17 at 21:23; Status DC Insulin Aspart (NovoLOG) 0-5 UNITS TIDWMEALS SQ Last administered on 03/09/17 17:18; Start 03/03/17 at 08:00 Dextrose 12.5 gm PRN Q15MIN PRN IV SEE COMMENTS; Start 03/02/17 at 21:45 Magnesium Oxide (Magnesium Oxide) 400 mg TID PO Last administered on 03/09/17 19:50; Start 03/03/17 at 21:00 Sodium Bicarbonate 650 mg BID PO Last administered on 03/08/17 20:21; Start at 21:00 Duloxetine HCl (Cymbalta) 30 mg DAILY PO Last administered on 03/09/17 09:40; Start 03/05/17 at 09:00 Aripiprazole (Abilify) 5 mg DAILY PO Last administered on 03/08/17 08:04; Start 03/06/17 at 09:00 Artificial Tears (Artificial Tears) 1 drop BID OU Last administered on 19:49; Start 03/07/17 at 09:00 Fluticasone Propionate (Flonase) 2 spray DAILY NS ; Start 03/08/17 at 13:15 Glucose (Insta-Glucose) 15 gm STK-MED ONCE .ROUTE Last administered on 12:11; Start 03/09/17 at 11:38; Stop 03/09/17 at 11:39; Status DC Divalproex Sodium (Depakote Sprinkles) 125 mg BID92 PO Last administered on 13:41; Start 03/09/17 at 14:00 Active Scripts Active Reported [place] 7.5-325 Tablet (Hydrocodone Bit/Acetaminophen) 1 Each Tablet 1 Tab PO QID Metanx Capsule (Levomefolate/B6/B12/Algal Oil) 1 Each Capsule 1 Cap PO BID Lorazepam 0.5 Mg Tablet 0.5 Mg PO PRN TID PRN Abilify (Aripiprazole) 2 Mg Tablet 2 Mg PO DAILY Celexa (Citalopram Hydrobromide) 20 Mg Tablet 20 Mg PO DAILY Neurontin (Gabapentin) 600 Mg Tablet 600 Mg PO TID [Arnicare Gel] 1 Jasmyne TOP PRN BID PRN Donepezil Hcl 10 Mg Tablet 10 Mg PO DAILY Levemir Flextouch (Insulin Detemir) 100 Unit/1 Ml Insuln.pen 25 Unit SQ QHS Klor-Con M20 (Potassium Chloride) 20 Meq Tab.er.prt 40 Meq PO DAILY Novolog Flexpen (Insulin Aspart) 100 Unit/1 Ml Insuln.pen 0-5 Unit SQ TIDWMEALS Nystatin 15 Gm Powder 1 Jasmyne TP PRN BID PRN Pyridoxine Hcl 100 Mg Tablet 100 Mg PO DAILY Norvasc (Amlodipine Besylate) 5 Mg Tablet 5 Mg PO DAILY Atorvastatin Calcium 40 Mg Tablet 40 Mg PO QHS Plavix (Clopidogrel Bisulfate) 75 Mg Tablet 75 Mg PO DAILY Refresh Lacri-Lube Ointment (Mineral Oil/Petrolatum,White) 3.5 Gm Oint...g. 1 Jasmyne OU BID Vitamin B-12 (Cyanocobalamin (Vitamin B-12)) 1,000 Mcg Tablet 1,000 Mcg PO DAILY Vitamin D3 (Cholecalciferol (Vitamin D3)) 1,000 Unit Tablet 5,000 Unit PO DAILY Diagnosis: Problems: (1) Anxiety disorder (2) Impulse control disorder (3) Major depressive disorder, recurrent episode (4) Dementia in Alzheimer's disease with depression (5) Dementia in Alzheimer's disease with delusions ALESSANDRA IBRAHIM MD Mar 09, 2017 21:13
--- NOTE | 2017-03-10 02:43 | PN ---
DATE: 03/08/2017 This is a late entry for 03/08/2017 and covers the elements not covered in my initial note of 03/08/2017. SUBJECTIVE: I met with the patient the evening of 03/08/2017 for this evaluation. Per nursing report, previous evening, the patient was quite delusional, oriented x 3, felt she was in [place], not sure if she was in the hospital; morning of 03/08/2017, she was somewhat intrusive. REVIEW OF SYSTEMS: Ambulation impaired, in a wheelchair. No specific CV, , pulmonary, eye, ENT system symptoms on review. MENTAL STATUS EXAM: Oriented as above. Speech is coherent, pleasant, smiling as I met with her. Abstraction fair, computation impaired, language function intact. Attention span short, despite the above she does have some mood lability. LABORATORY DATA: Reviewed. IMPRESSION: Unchanged from initial note. PLAN: Continue current psychotropics. We will review her family history, which apparently is significant for bipolar disorder and if this is conformed we may additionally start Depakote as a mood stabilizer on 03/09/2017. Reviewed drug interactions. Risk/benefit ratio favors no further change. MAN Elizabeth IBRAHIM MD DR: CARLA/faith JOB#: [id number] / [id number]
[2017-03-10 06:07] VITALS: BP 155/76
[2017-03-10] MEDS: INSULIN ASPART 300 UNITS/3 ML INSULN.PEN SQ SCH ×4 (08:00→20:02)
[2017-03-10] MEDS: FLUTICASONE 50MCG/NASAL SPRAY 16GM BOTTLE. NS SCH (09:41)
[2017-03-10] MEDS: POLYVINYL ALCOHOL 1.4% OPHTH SOLUTION 15ML BOTTLE. OU SCH ×2 (09:41→19:59)
[2017-03-10] MEDS: CYANOCOBALAMIN (VITAMIN B-12) 1,000 MCG TABLET. PO SCH (09:42)
[2017-03-10] MEDS: ARIPiprazole 5 MG TABLET PO SCH (09:42)
[2017-03-10] MEDS: GABAPENTIN 300 MG CAPSULE. PO SCH ×3 (09:42→20:00)
[2017-03-10] MEDS: CHOLECALCIFEROL (VITAMIN D3) 1,000 UNIT TABLET PO SCH (09:42)
[2017-03-10] MEDS: DULoxetine HCL 30 MG CAPSULE.DR PO SCH (09:42)
[2017-03-10] MEDS: CLOPIDOGREL BISULFATE 75 MG TABLET PO SCH (09:42)
[2017-03-10] MEDS: VITAMIN B COMPLEX CAPSULE. PO SCH ×2 (09:43→19:59)
[2017-03-10] MEDS: amLODIPine BESYLATE 5 MG TABLET PO SCH (09:43)
[2017-03-10] MEDS: DONEPEZIL HCL 10 MG TABLET PO SCH (09:43)
[2017-03-10] MEDS: DIVALPROEX 125 MG CAP.SPRINK PO SCH ×2 (09:50→13:49)
[2017-03-10] MEDS: SODIUM BICARBONATE 650 MG TABLET PO SCH ×2 (09:50→19:59)
[2017-03-10] MEDS: MAGNESIUM OXIDE 400 MG TABLET PO SCH ×3 (09:50→19:59)
[2017-03-10] MEDS: PYRIDOXINE 100 MG TABLET. PO SCH (09:50)
[2017-03-10] MEDS: HYDROcodone/APAP 7.5/325MG 1 TAB TABLET PO SCH ×4 (09:51→20:06)
[2017-03-10 16:15] VITALS: BP 117/69
[2017-03-10] MEDS: ATORVASTATIN CALCIUM 20 MG TABLET PO SCH (19:59)
[2017-03-10] MEDS: INSULIN DETEMIR 300 UNITS/3 ML INSULN.PEN. SQ SCH (20:03)
--- NOTE | 2017-03-10 21:05 | PDOC ---
Exam Jam Demential Exam: Jam Note: Please also refer to the separate dictated note~for this date of service dictated separately.~Patient seen individually. Discussed the patient with Nursing staff reviewed the chart.~Reviewed interim history and current functioning. Reviewed vital signs,~Labs/ Radiology~and current medications noted below. Continue current treatment with the changes noted in the dictated addendum note Assessment: Vital Signs: Vital Signs Date Time Temp Pulse Resp B/P (MAP) Pulse Ox O2 Delivery O2 Flow Rate FiO2 03/10/17 20:06 95 Room Air 03/10/17 17:04 18 03/10/17 16:15 97.2 80 117/69 (85) I&O Intake and Output 03/11/17 07:00 Intake Total 840 ml Balance 840 ml Intake Oral 840 ml Labs: Laboratory Tests Test 03/10/17 07:32 03/10/17 11:15 03/10/17 16:35 03/10/17 19:03 Glucose (Fingerstick) 118 mg/dL (70-99) H 126 mg/dL (70-99) H 191 mg/dL (70-99) H 309 mg/dL (70-99) H Current Medications: Meds: Current Medications Acetaminophen (Tylenol) 650 mg PRN Q6HRS PRN PO PAIN / TEMP; Start 03/02/17 at 21:30 Multi-Ingredient Ointment (Analgesic [place]) 1 jasmyne PRN QID PRN TP MUSCLE PAIN Last administered on 03/02/17 22:32; Start 03/02/17 at 21:30 Al Hydroxide/Mg Hydroxide (Mylanta Plus Xs) 15 ml PRN AFTMEALHC PRN PO DYSPEPSIA; Start 03/02/17 at 21:30 Magnesium Hydroxide (Milk Of Magnesia) 2,400 mg PRN QHS PRN PO CONSTIPATION; Start 03/02/17 at 21:30 Aripiprazole (Abilify) 2 mg DAILY PO Last administered on 03/05/17 07:36; Start 03/03/17 at 09:00; Stop 03/05/17 at 12:09; Status DC Citalopram Hydrobromide (CeleXA) 20 mg DAILY PO Last administered on 03/04/17 09:30; Start 03/03/17 at 09:00; Stop 03/04/17 at 12:11; Status DC Donepezil HCl (Aricept) 10 mg DAILY PO Last administered on 03/10/17 09:43; Start 03/03/17 at 09:00 Lorazepam (Ativan) 0.5 mg PRN TID PRN PO ANXIETY / AGITATION; Start 03/02/17 at 21:30 Amlodipine Besylate (Norvasc) 5 mg DAILY PO Last administered on 03/10/17 09: 43; Start 03/03/17 at 09:00 Vitamin D (Vitamin D3) 5,000 unit DAILY PO Last administered on 03/10/17 09:42 ; Start 03/03/17 at 09:00 Clopidogrel Bisulfate (Plavix) 75 mg DAILY PO Last administered on 03/10/17 09 :42; Start 03/03/17 at 09:00 Cyanocobalamin (Vitamin B-12) 1,000 mcg DAILY PO Last administered on 09:42; Start 03/03/17 at 09:00 Acetaminophen/ Hydrocodone Bitart (Lortab 7.5/325) 1 tab QID PO Last administered on 03/10/17 20:06; Start 03/02/17 at 22:00 Insulin Detemir (Levemir) 25 units QHS SQ Last administered on 03/10/17 20:03 ; Start 03/02/17 at 22:00 Nystatin (Nystop) 1 jasmyne PRN BID PRN TP REDNESS Last administered on 03/03/17 08:04; Start 03/02/17 at 21:45 Pyridoxine HCl (Vitamin B-6) 100 mg DAILY PO Last administered on 03/10/17 09: 50; Start 03/03/17 at 09:00 Atorvastatin Calcium (Lipitor) 40 mg QHS PO Last administered on 03/10/17 19: 59; Start 03/02/17 at 22:00 Gabapentin (Neurontin) 600 mg TID PO Last administered on 03/10/17 20:00; Start 03/02/17 at 22:00 Vitamin B Complex 1 cap BID PO Last administered on 03/10/17 19:59; Start at 09:00 Multi-Ingred Cream/Lotion/Oil/ Oint (Artificial Tears Eye Oint) 1 jasmyne BID OU Last administered on 03/06/17 19:42; Start 03/02/17 at 22:00; Stop 03/06/17 at 21:23; Status DC Insulin Aspart (NovoLOG) 0-5 UNITS TIDWMEALS SQ Last administered on 03/10/17 20:02; Start 03/03/17 at 08:00 Dextrose 12.5 gm PRN Q15MIN PRN IV SEE COMMENTS; Start 03/02/17 at 21:45 Magnesium Oxide (Magnesium Oxide) 400 mg TID PO Last administered on 03/10/17 19:59; Start 03/03/17 at 21:00 Sodium Bicarbonate 650 mg BID PO Last administered on 03/10/17 19:59; Start at 21:00 Duloxetine HCl (Cymbalta) 30 mg DAILY PO Last administered on 03/10/17 09:42; Start 03/05/17 at 09:00 Aripiprazole (Abilify) 5 mg DAILY PO Last administered on 03/10/17 09:42; Start 03/06/17 at 09:00 Artificial Tears (Artificial Tears) 1 drop BID OU Last administered on 19:59; Start 03/07/17 at 09:00 Fluticasone Propionate (Flonase) 2 spray DAILY NS Last administered on 09:41; Start 03/08/17 at 13:15 Glucose (Insta-Glucose) 15 gm STK-MED ONCE .ROUTE Last administered on 12:11; Start 03/09/17 at 11:38; Stop 03/09/17 at 11:39; Status DC Divalproex Sodium (Depakote Sprinkles) 125 mg BID92 PO Last administered on 13:49; Start 03/09/17 at 14:00 Active Scripts Active Reported [place] 7.5-325 Tablet (Hydrocodone Bit/Acetaminophen) 1 Each Tablet 1 Tab PO QID Metanx Capsule (Levomefolate/B6/B12/Algal Oil) 1 Each Capsule 1 Cap PO BID Lorazepam 0.5 Mg Tablet 0.5 Mg PO PRN TID PRN Abilify (Aripiprazole) 2 Mg Tablet 2 Mg PO DAILY Celexa (Citalopram Hydrobromide) 20 Mg Tablet 20 Mg PO DAILY Neurontin (Gabapentin) 600 Mg Tablet 600 Mg PO TID [Arnicare Gel] 1 Jasmyne TOP PRN BID PRN Donepezil Hcl 10 Mg Tablet 10 Mg PO DAILY Levemir Flextouch (Insulin Detemir) 100 Unit/1 Ml Insuln.pen 25 Unit SQ QHS Klor-Con M20 (Potassium Chloride) 20 Meq Tab.er.prt 40 Meq PO DAILY Novolog Flexpen (Insulin Aspart) 100 Unit/1 Ml Insuln.pen 0-5 Unit SQ TIDWMEALS Nystatin 15 Gm Powder 1 Jasmyne TP PRN BID PRN Pyridoxine Hcl 100 Mg Tablet 100 Mg PO DAILY Norvasc (Amlodipine Besylate) 5 Mg Tablet 5 Mg PO DAILY Atorvastatin Calcium 40 Mg Tablet 40 Mg PO QHS Plavix (Clopidogrel Bisulfate) 75 Mg Tablet 75 Mg PO DAILY Refresh Lacri-Lube Ointment (Mineral Oil/Petrolatum,White) 3.5 Gm Oint...g. 1 Jasmyne OU BID Vitamin B-12 (Cyanocobalamin (Vitamin B-12)) 1,000 Mcg Tablet 1,000 Mcg PO DAILY Vitamin D3 (Cholecalciferol (Vitamin D3)) 1,000 Unit Tablet 5,000 Unit PO DAILY Diagnosis: Problems: (1) Anxiety disorder (2) Impulse control disorder (3) Major depressive disorder, recurrent episode (4) Dementia in Alzheimer's disease with depression (5) Dementia in Alzheimer's disease with delusions ALESSANDRA IBRAHIM MD Mar 10, 2017 21:05
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
[2017-03-11 06:22] VITALS: BP 127/50
[2017-03-11] MEDS: DIVALPROEX 125 MG CAP.SPRINK PO SCH ×2 (08:14→14:36)
[2017-03-11] MEDS: ARIPiprazole 5 MG TABLET PO SCH (08:14)
[2017-03-11] MEDS: MAGNESIUM OXIDE 400 MG TABLET PO SCH ×3 (08:14→20:22)
[2017-03-11] MEDS: DULoxetine HCL 30 MG CAPSULE.DR PO SCH (08:14)
[2017-03-11] MEDS: CLOPIDOGREL BISULFATE 75 MG TABLET PO SCH (08:14)
[2017-03-11] MEDS: CYANOCOBALAMIN (VITAMIN B-12) 1,000 MCG TABLET. PO SCH (08:14)
[2017-03-11] MEDS: GABAPENTIN 300 MG CAPSULE. PO SCH ×3 (08:14→20:22)
[2017-03-11] MEDS: VITAMIN B COMPLEX CAPSULE. PO SCH ×2 (08:14→20:22)
[2017-03-11] MEDS: DONEPEZIL HCL 10 MG TABLET PO SCH (08:15)
[2017-03-11] MEDS: CHOLECALCIFEROL (VITAMIN D3) 1,000 UNIT TABLET PO SCH (08:15)
[2017-03-11] MEDS: amLODIPine BESYLATE 5 MG TABLET PO SCH (08:16)
[2017-03-11] MEDS: HYDROcodone/APAP 7.5/325MG 1 TAB TABLET PO SCH ×4 (08:22→20:24)
[2017-03-11] MEDS: POLYVINYL ALCOHOL 1.4% OPHTH SOLUTION 15ML BOTTLE. OU SCH ×2 (08:24→20:26)
[2017-03-11] MEDS: PYRIDOXINE 100 MG TABLET. PO SCH (08:24)
[2017-03-11] MEDS: SODIUM BICARBONATE 650 MG TABLET PO SCH ×2 (08:24→20:24)
[2017-03-11] MEDS: FLUTICASONE 50MCG/NASAL SPRAY 16GM BOTTLE. NS SCH (08:25)
[2017-03-11] MEDS: INSULIN ASPART 300 UNITS/3 ML INSULN.PEN SQ SCH ×2 (12:00→17:00)
--- NOTE | 2017-03-11 16:26 | PDOC ---
PROGRESS NOTES Assessment 1. Peripheral edema w/ stasis dermatitis: Redness improved per nurse since pt elevating feet today. I will stop her amlodipine (since her BP is on the low side anyway) to see if that will help reduce edema. May need to cut down on neurontin as well. 2. No sign of DVT, Well's score is ZERO. Continue Plavix. Problems: Plan of Care: see other orders Subjective Pt seen on rounds at request of nursing staff w/ concerns about cellulitis on both feet. Pt denies new sx's, though says swelling has been worse lately. Per nursing, swelling was worse yesterday after having her feet dangle a long time. Today, swelling (and therefore redness) is better. Pt denies chest pain or SOA. Objective Vital Signs Date Time Temp Pulse Resp B/P (MAP) Pulse Ox O2 Delivery O2 Flow Rate FiO2 03/11/17 08:16 80 127/50 03/11/17 06:22 98.1 18 96 03/10/17 21:06 Room Air Intake and Output 03/12/17 07:00 Intake Total 840 ml Balance 840 ml Intake Oral 840 ml Abdomen: Soft, No tenderness, No masses Heart: Regular rate, Normal S1, Normal S2, No murmurs Extremities: Normal pulses, Other (2+ pitting edema in BLE w/ stasis dermatitis , no ulceration, induration, streaking, or fluctuance) General: Alert, Cooperative, No acute distress HEENT: Mucous membr. moist/pink Lungs: Clear to auscultation Neck: No JVD Review of Relevant I have reviewed the following items elmo (where applicable) has been applied. Labs Laboratory Tests Test 03/09/17 16:46 03/09/17 18:52 03/10/17 07:32 03/10/17 11:15 Glucose (Fingerstick) 204 mg/dL (70-99) 227 mg/dL (70-99) 118 mg/dL (70-99) 126 mg/dL (70-99) Test 03/10/17 16:35 03/10/17 19:03 03/11/17 07:27 03/11/17 11:32 Glucose (Fingerstick) 191 mg/dL (70-99) 309 mg/dL (70-99) 84 mg/dL (70-99) 131 mg/dL (70-99) Medications Current Medications Acetaminophen (Tylenol) 650 mg PRN Q6HRS PRN PO PAIN / TEMP; Start 03/02/17 at 21:30 Multi-Ingredient Ointment (Analgesic [place]) 1 jasmyne PRN QID PRN TP MUSCLE PAIN Last administered on 03/02/17 22:32; Start 03/02/17 at 21:30 Al Hydroxide/Mg Hydroxide (Mylanta Plus Xs) 15 ml PRN AFTMEALHC PRN PO DYSPEPSIA; Start 03/02/17 at 21:30 Magnesium Hydroxide (Milk Of Magnesia) 2,400 mg PRN QHS PRN PO CONSTIPATION; Start 03/02/17 at 21:30 Aripiprazole (Abilify) 2 mg DAILY PO Last administered on 03/05/17 07:36; Start 03/03/17 at 09:00; Stop 03/05/17 at 12:09; Status DC Citalopram Hydrobromide (CeleXA) 20 mg DAILY PO Last administered on 03/04/17 09:30; Start 03/03/17 at 09:00; Stop 03/04/17 at 12:11; Status DC Donepezil HCl (Aricept) 10 mg DAILY PO Last administered on 03/11/17 08:15; Start 03/03/17 at 09:00 Lorazepam (Ativan) 0.5 mg PRN TID PRN PO ANXIETY / AGITATION; Start 03/02/17 at 21:30 Amlodipine Besylate (Norvasc) 5 mg DAILY PO Last administered on 03/11/17 08: 16; Start 03/03/17 at 09:00 Vitamin D (Vitamin D3) 5,000 unit DAILY PO Last administered on 03/11/17 08:15 ; Start 03/03/17 at 09:00 Clopidogrel Bisulfate (Plavix) 75 mg DAILY PO Last administered on 03/11/17 08 :14; Start 03/03/17 at 09:00 Cyanocobalamin (Vitamin B-12) 1,000 mcg DAILY PO Last administered on 08:14; Start 03/03/17 at 09:00 Acetaminophen/ Hydrocodone Bitart (Lortab 7.5/325) 1 tab QID PO Last administered on 03/11/17 14:37; Start 03/02/17 at 22:00 Insulin Detemir (Levemir) 25 units QHS SQ Last administered on 03/10/17 20:03 ; Start 03/02/17 at 22:00 Nystatin (Nystop) 1 jasmyne PRN BID PRN TP REDNESS Last administered on 03/03/17 08:04; Start 03/02/17 at 21:45 Pyridoxine HCl (Vitamin B-6) 100 mg DAILY PO Last administered on 03/11/17 08: 24; Start 03/03/17 at 09:00 Atorvastatin Calcium (Lipitor) 40 mg QHS PO Last administered on 03/10/17 19: 59; Start 03/02/17 at 22:00 Gabapentin (Neurontin) 600 mg TID PO Last administered on 03/11/17 14:36; Start 03/02/17 at 22:00 Vitamin B Complex 1 cap BID PO Last administered on 03/11/17 08:14; Start at 09:00 Multi-Ingred Cream/Lotion/Oil/ Oint (Artificial Tears Eye Oint) 1 jasmyne BID OU Last administered on 03/06/17 19:42; Start 03/02/17 at 22:00; Stop 03/06/17 at 21:23; Status DC Insulin Aspart (NovoLOG) 0-5 UNITS TIDWMEALS SQ Last administered on 03/10/17 20:02; Start 03/03/17 at 08:00 Dextrose 12.5 gm PRN Q15MIN PRN IV SEE COMMENTS; Start 03/02/17 at 21:45 Magnesium Oxide (Magnesium Oxide) 400 mg TID PO Last administered on 03/11/17 14:36; Start 03/03/17 at 21:00 Sodium Bicarbonate 650 mg BID PO Last administered on 03/11/17 08:24; Start at 21:00 Duloxetine HCl (Cymbalta) 30 mg DAILY PO Last administered on 03/11/17 08:14; Start 03/05/17 at 09:00 Aripiprazole (Abilify) 5 mg DAILY PO Last administered on 03/11/17 08:14; Start 03/06/17 at 09:00 Artificial Tears (Artificial Tears) 1 drop BID OU Last administered on 08:24; Start 03/07/17 at 09:00 Fluticasone Propionate (Flonase) 2 spray DAILY NS Last administered on 08:25; Start 03/08/17 at 13:15 Glucose (Insta-Glucose) 15 gm STK-MED ONCE .ROUTE Last administered on 12:11; Start 03/09/17 at 11:38; Stop 03/09/17 at 11:39; Status DC Divalproex Sodium (Depakote Sprinkles) 125 mg BID92 PO Last administered on 14:36; Start 03/09/17 at 14:00 Active Scripts Active Reported [place] 7.5-325 Tablet (Hydrocodone Bit/Acetaminophen) 1 Each Tablet 1 Tab PO QID Metanx Capsule (Levomefolate/B6/B12/Algal Oil) 1 Each Capsule 1 Cap PO BID Lorazepam 0.5 Mg Tablet 0.5 Mg PO PRN TID PRN Abilify (Aripiprazole) 2 Mg Tablet 2 Mg PO DAILY Celexa (Citalopram Hydrobromide) 20 Mg Tablet 20 Mg PO DAILY Neurontin (Gabapentin) 600 Mg Tablet 600 Mg PO TID [Arnicare Gel] 1 Jasmyne TOP PRN BID PRN Donepezil Hcl 10 Mg Tablet 10 Mg PO DAILY Levemir Flextouch (Insulin Detemir) 100 Unit/1 Ml Insuln.pen 25 Unit SQ QHS Klor-Con M20 (Potassium Chloride) 20 Meq Tab.er.prt 40 Meq PO DAILY Novolog Flexpen (Insulin Aspart) 100 Unit/1 Ml Insuln.pen 0-5 Unit SQ TIDWMEALS Nystatin 15 Gm Powder 1 Jasmyne TP PRN BID PRN Pyridoxine Hcl 100 Mg Tablet 100 Mg PO DAILY Norvasc (Amlodipine Besylate) 5 Mg Tablet 5 Mg PO DAILY Atorvastatin Calcium 40 Mg Tablet 40 Mg PO QHS Plavix (Clopidogrel Bisulfate) 75 Mg Tablet 75 Mg PO DAILY Refresh Lacri-Lube Ointment (Mineral Oil/Petrolatum,White) 3.5 Gm Oint...g. 1 Jasmyne OU BID Vitamin B-12 (Cyanocobalamin (Vitamin B-12)) 1,000 Mcg Tablet 1,000 Mcg PO DAILY Vitamin D3 (Cholecalciferol (Vitamin D3)) 1,000 Unit Tablet 5,000 Unit PO DAILY Vitals/I & O Vital Sign - Last 24 Hours 03/10/17 03/10/17 03/10/17 03/11/17 17:04 20:06 21:06 06:22 Temp 98.1 Pulse 80 Resp 18 18 B/P (MAP) 127/50 (75) Pulse Ox 95 95 95 96 O2 Delivery Room Air Room Air Room Air 03/11/17 08:16 Pulse 80 B/P (MAP) 127/50 Intake and Output 03/11/17 03/11/17 03/12/17 15:00 23:00 07:00 Intake Total 840 ml Balance 840 ml MINERVA DAVILA MD Mar 11, 2017 16:26
[2017-03-11 17:09] VITALS: BP 114/50
[2017-03-11] MEDS: ATORVASTATIN CALCIUM 20 MG TABLET PO SCH (20:22)
--- NOTE | 2017-03-11 21:17 | PDOC ---
Exam Jam Demential Exam: Jam Note: Please also refer to the separate dictated note~for this date of service dictated separately.~Patient seen individually. Discussed the patient with Nursing staff reviewed the chart.~Reviewed interim history and current functioning. Reviewed vital signs,~Labs/ Radiology~and current medications noted below. Continue current treatment with the changes noted in the dictated addendum note Assessment: Vital Signs: Vital Signs Date Time Temp Pulse Resp B/P (MAP) Pulse Ox O2 Delivery O2 Flow Rate FiO2 03/11/17 17:09 98.3 71 20 114/50 (71) 96 Room Air I&O Intake and Output 03/12/17 07:00 Intake Total 1080 ml Balance 1080 ml Intake Oral 1080 ml Labs: Laboratory Tests Test 03/11/17 07:27 03/11/17 11:32 03/11/17 16:51 03/11/17 19:21 Glucose (Fingerstick) 84 mg/dL (70-99) 131 mg/dL (70-99) H 110 mg/dL (70-99) H 137 mg/dL (70-99) H Current Medications: Meds: Current Medications Acetaminophen (Tylenol) 650 mg PRN Q6HRS PRN PO PAIN / TEMP; Start 03/02/17 at 21:30 Multi-Ingredient Ointment (Analgesic [place]) 1 jasmyne PRN QID PRN TP MUSCLE PAIN Last administered on 03/02/17 22:32; Start 03/02/17 at 21:30 Al Hydroxide/Mg Hydroxide (Mylanta Plus Xs) 15 ml PRN AFTMEALHC PRN PO DYSPEPSIA; Start 03/02/17 at 21:30 Magnesium Hydroxide (Milk Of Magnesia) 2,400 mg PRN QHS PRN PO CONSTIPATION; Start 03/02/17 at 21:30 Aripiprazole (Abilify) 2 mg DAILY PO Last administered on 03/05/17 07:36; Start 03/03/17 at 09:00; Stop 03/05/17 at 12:09; Status DC Citalopram Hydrobromide (CeleXA) 20 mg DAILY PO Last administered on 03/04/17 09:30; Start 03/03/17 at 09:00; Stop 03/04/17 at 12:11; Status DC Donepezil HCl (Aricept) 10 mg DAILY PO Last administered on 03/11/17 08:15; Start 03/03/17 at 09:00 Lorazepam (Ativan) 0.5 mg PRN TID PRN PO ANXIETY / AGITATION; Start 03/02/17 at 21:30 Amlodipine Besylate (Norvasc) 5 mg DAILY PO Last administered on 03/11/17 08: 16; Start 03/03/17 at 09:00 Vitamin D (Vitamin D3) 5,000 unit DAILY PO Last administered on 03/11/17 08:15 ; Start 03/03/17 at 09:00 Clopidogrel Bisulfate (Plavix) 75 mg DAILY PO Last administered on 03/11/17 08 :14; Start 03/03/17 at 09:00 Cyanocobalamin (Vitamin B-12) 1,000 mcg DAILY PO Last administered on 08:14; Start 03/03/17 at 09:00 Acetaminophen/ Hydrocodone Bitart (Lortab 7.5/325) 1 tab QID PO Last administered on 03/11/17 20:24; Start 03/02/17 at 22:00 Insulin Detemir (Levemir) 25 units QHS SQ Last administered on 03/10/17 20:03 ; Start 03/02/17 at 22:00 Nystatin (Nystop) 1 jasmyne PRN BID PRN TP REDNESS Last administered on 03/03/17 08:04; Start 03/02/17 at 21:45 Pyridoxine HCl (Vitamin B-6) 100 mg DAILY PO Last administered on 03/11/17 08: 24; Start 03/03/17 at 09:00 Atorvastatin Calcium (Lipitor) 40 mg QHS PO Last administered on 03/11/17 20: 22; Start 03/02/17 at 22:00 Gabapentin (Neurontin) 600 mg TID PO Last administered on 03/11/17 20:22; Start 03/02/17 at 22:00 Vitamin B Complex 1 cap BID PO Last administered on 03/11/17 20:22; Start at 09:00 Multi-Ingred Cream/Lotion/Oil/ Oint (Artificial Tears Eye Oint) 1 jasmyne BID OU Last administered on 03/06/17 19:42; Start 03/02/17 at 22:00; Stop 03/06/17 at 21:23; Status DC Insulin Aspart (NovoLOG) 0-5 UNITS TIDWMEALS SQ Last administered on 03/10/17 20:02; Start 03/03/17 at 08:00 Dextrose 12.5 gm PRN Q15MIN PRN IV SEE COMMENTS; Start 03/02/17 at 21:45 Magnesium Oxide (Magnesium Oxide) 400 mg TID PO Last administered on 03/11/17 20:22; Start 03/03/17 at 21:00 Sodium Bicarbonate 650 mg BID PO Last administered on 03/11/17 20:24; Start at 21:00 Duloxetine HCl (Cymbalta) 30 mg DAILY PO Last administered on 03/11/17 08:14; Start 03/05/17 at 09:00 Aripiprazole (Abilify) 5 mg DAILY PO Last administered on 03/11/17 08:14; Start 03/06/17 at 09:00 Artificial Tears (Artificial Tears) 1 drop BID OU Last administered on 20:26; Start 03/07/17 at 09:00 Fluticasone Propionate (Flonase) 2 spray DAILY NS Last administered on 08:25; Start 03/08/17 at 13:15 Glucose (Insta-Glucose) 15 gm STK-MED ONCE .ROUTE Last administered on 12:11; Start 03/09/17 at 11:38; Stop 03/09/17 at 11:39; Status DC Divalproex Sodium (Depakote Sprinkles) 125 mg BID92 PO Last administered on 14:36; Start 03/09/17 at 14:00 Active Scripts Active Reported [place] 7.5-325 Tablet (Hydrocodone Bit/Acetaminophen) 1 Each Tablet 1 Tab PO QID Metanx Capsule (Levomefolate/B6/B12/Algal Oil) 1 Each Capsule 1 Cap PO BID Lorazepam 0.5 Mg Tablet 0.5 Mg PO PRN TID PRN Abilify (Aripiprazole) 2 Mg Tablet 2 Mg PO DAILY Celexa (Citalopram Hydrobromide) 20 Mg Tablet 20 Mg PO DAILY Neurontin (Gabapentin) 600 Mg Tablet 600 Mg PO TID [Arnicare Gel] 1 Jasmyne TOP PRN BID PRN Donepezil Hcl 10 Mg Tablet 10 Mg PO DAILY Levemir Flextouch (Insulin Detemir) 100 Unit/1 Ml Insuln.pen 25 Unit SQ QHS Klor-Con M20 (Potassium Chloride) 20 Meq Tab.er.prt 40 Meq PO DAILY Novolog Flexpen (Insulin Aspart) 100 Unit/1 Ml Insuln.pen 0-5 Unit SQ TIDWMEALS Nystatin 15 Gm Powder 1 Jasmyne TP PRN BID PRN Pyridoxine Hcl 100 Mg Tablet 100 Mg PO DAILY Norvasc (Amlodipine Besylate) 5 Mg Tablet 5 Mg PO DAILY Atorvastatin Calcium 40 Mg Tablet 40 Mg PO QHS Plavix (Clopidogrel Bisulfate) 75 Mg Tablet 75 Mg PO DAILY Refresh Lacri-Lube Ointment (Mineral Oil/Petrolatum,White) 3.5 Gm Oint...g. 1 Jasmyne OU BID Vitamin B-12 (Cyanocobalamin (Vitamin B-12)) 1,000 Mcg Tablet 1,000 Mcg PO DAILY Vitamin D3 (Cholecalciferol (Vitamin D3)) 1,000 Unit Tablet 5,000 Unit PO DAILY Diagnosis: Problems: (1) Anxiety disorder (2) Impulse control disorder (3) Major depressive disorder, recurrent episode (4) Dementia in Alzheimer's disease with depression (5) Dementia in Alzheimer's disease with delusions ALESSANDRA IBRAHIM MD Mar 11, 2017 21:17
[2017-03-11] MEDS: INSULIN DETEMIR 300 UNITS/3 ML INSULN.PEN. SQ SCH (22:15)
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
[2017-03-12 06:22] VITALS: BP 140/84
[2017-03-12] MEDS: INSULIN ASPART 300 UNITS/3 ML INSULN.PEN SQ SCH ×3 (08:00→17:21)
[2017-03-12] MEDS: FLUTICASONE 50MCG/NASAL SPRAY 16GM BOTTLE. NS SCH (09:00)
[2017-03-12] MEDS: POLYVINYL ALCOHOL 1.4% OPHTH SOLUTION 15ML BOTTLE. OU SCH ×2 (09:17→20:08)
[2017-03-12] MEDS: CHOLECALCIFEROL (VITAMIN D3) 1,000 UNIT TABLET PO SCH (09:17)
[2017-03-12] MEDS: VITAMIN B COMPLEX CAPSULE. PO SCH ×2 (09:17→20:08)
[2017-03-12] MEDS: DONEPEZIL HCL 10 MG TABLET PO SCH (09:18)
[2017-03-12] MEDS: ARIPiprazole 5 MG TABLET PO SCH (09:18)
[2017-03-12] MEDS: DULoxetine HCL 30 MG CAPSULE.DR PO SCH (09:18)
[2017-03-12] MEDS: HYDROcodone/APAP 7.5/325MG 1 TAB TABLET PO SCH ×4 (09:18→20:09)
[2017-03-12] MEDS: DIVALPROEX 125 MG CAP.SPRINK PO SCH ×2 (09:18→13:19)
[2017-03-12] MEDS: SODIUM BICARBONATE 650 MG TABLET PO SCH ×2 (09:18→20:08)
[2017-03-12] MEDS: PYRIDOXINE 100 MG TABLET. PO SCH (09:18)
[2017-03-12] MEDS: GABAPENTIN 300 MG CAPSULE. PO SCH ×3 (09:18→20:09)
[2017-03-12] MEDS: CLOPIDOGREL BISULFATE 75 MG TABLET PO SCH (09:18)
[2017-03-12] MEDS: CYANOCOBALAMIN (VITAMIN B-12) 1,000 MCG TABLET. PO SCH (09:18)
[2017-03-12] MEDS: MAGNESIUM OXIDE 400 MG TABLET PO SCH ×3 (09:19→20:08)
[2017-03-12 09:55] LABS: BASO # 0.1 x10^3/uL (0.0-0.2); BASO % 1 % (0-3); EOS # 0.2 x10^3/uL (0.0-0.7); EOS % 2 % (0-3); HEMATOCRIT 35.3 % (36.0-47.0); HEMOGLOBIN 12.1 g/dL (12.0-15.5); LYMPH # 1.6 x10^3/uL (1.0-4.8); LYMPH % 20 % (24-48); MEAN CORPUSCULAR HEMOGLOBIN 33 pg (25-35); MEAN CORPUSCULAR HGB CONC 34 g/dL (31-37); MEAN CORPUSCULAR VOLUME 95 fL (79-100); MONO # 0.8 x10^3/uL (0.0-1.1); MONO % 10 % (0-9); NEUT # 5.4 x10^3uL (1.8-7.7); NEUT % 67 % (31-73); PLATELET COUNT 265 x10^3/uL (140-400); RED BLOOD COUNT 3.73 x10^6/uL (3.50-5.40)
[2017-03-12 10:26] LABS: ALBUMIN 3.5 g/dL (3.4-5.0); ALK PHOS 125 U/L (46-116); ALT (SGPT) 28 U/L (14-59); ANION GAP 8 (6-14); AST (SGOT) 27 U/L (15-37); BLOOD UREA NITROGEN 16 mg/dL (7-20); BUN/CREATININE RATIO 13 (6-20); CALCIUM 9.7 mg/dL (8.5-10.1); CARBON DIOXIDE 30 mmol/L (21-32); CHLORIDE 102 mmol/L (98-107); CREATININE 1.2 mg/dL (0.6-1.0); GFR 43.4; GLUCOSE 90 mg/dL (70-99); POTASSIUM 4.3 mmol/L (3.5-5.1); SODIUM 140 mmol/L (136-145); TOTAL BILIRUBIN 0.6 mg/dL (0.2-1.0)
[2017-03-12 10:29] LABS: VAL ACID 14 mcg/mL (50-100)
[2017-03-12 16:30] VITALS: BP 96/63
[2017-03-12] MEDS: ATORVASTATIN CALCIUM 20 MG TABLET PO SCH (20:09)
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
[2017-03-12] MEDS: INSULIN DETEMIR 300 UNITS/3 ML INSULN.PEN. SQ SCH (22:02)
--- NOTE | 2017-03-12 22:52 | PDOC ---
Exam Jam Demential Exam: Jam Note: Please also refer to the separate dictated note~for this date of service dictated separately.~Patient seen individually. Discussed the patient with Nursing staff reviewed the chart.~Reviewed interim history and current functioning. Reviewed vital signs,~Labs/ Radiology~and current medications noted below. Continue current treatment with the changes noted in the dictated addendum note Assessment: Vital Signs: Vital Signs Date Time Temp Pulse Resp B/P (MAP) Pulse Ox O2 Delivery O2 Flow Rate FiO2 03/12/17 18:20 97 03/12/17 16:30 97.5 88 17 96/63 (74) 03/11/17 17:09 Room Air I&O Intake and Output 03/13/17 07:00 Intake Total 840 ml Balance 840 ml Intake Oral 840 ml # Voids 1 Labs: Laboratory Tests Test 03/12/17 07:55 03/12/17 09:28 03/12/17 11:10 03/12/17 16:42 Glucose (Fingerstick) 81 mg/dL (70-99) 155 mg/dL (70-99) H 161 mg/dL (70-99) H White Blood Count 8.0 x10^3/uL (4.0-11.0) Red Blood Count 3.73 x10^6/uL (3.50-5.40) Hemoglobin 12.1 g/dL (12.0-15.5) Hematocrit 35.3 % (36.0-47.0) L Mean Corpuscular Volume 95 fL (79-100) Mean Corpuscular Hemoglobin 33 pg (25-35) Mean Corpuscular Hemoglobin Concent 34 g/dL (31-37) Red Cell Distribution Width 13.0 % (11.5-14.5) Platelet Count 265 x10^3/uL (140-400) Neutrophils (%) (Auto) 67 % (31-73) Lymphocytes (%) (Auto) 20 % (24-48) L Monocytes (%) (Auto) 10 % (0-9) H Eosinophils (%) (Auto) 2 % (0-3) Basophils (%) (Auto) 1 % (0-3) Neutrophils # (Auto) 5.4 x10^3uL (1.8-7.7) Lymphocytes # (Auto) 1.6 x10^3/uL (1.0-4.8) Monocytes # (Auto) 0.8 x10^3/uL (0.0-1.1) Eosinophils # (Auto) 0.2 x10^3/uL (0.0-0.7) Basophils # (Auto) 0.1 x10^3/uL (0.0-0.2) Sodium Level 140 mmol/L (136-145) Potassium Level 4.3 mmol/L (3.5-5.1) Chloride Level 102 mmol/L (98-107) Carbon Dioxide Level 30 mmol/L (21-32) Anion Gap 8 (6-14) Blood Urea Nitrogen 16 mg/dL (7-20) Creatinine 1.2 mg/dL (0.6-1.0) H Estimated GFR (Cockcroft-Gault) 43.4 BUN/Creatinine Ratio 13 (6-20) Glucose Level 90 mg/dL (70-99) Calcium Level 9.7 mg/dL (8.5-10.1) Total Bilirubin 0.6 mg/dL (0.2-1.0) Aspartate Amino Transferase (AST) 27 U/L (15-37) Alanine Aminotransferase (ALT) 28 U/L (14-59) Alkaline Phosphatase 125 U/L (46-116) H Total Protein 7.0 g/dL (6.4-8.2) Albumin 3.5 g/dL (3.4-5.0) Albumin/Globulin Ratio 1.0 (1.0-1.7) Valproic Acid Level 14 mcg/mL (50-100) L Valproic Acid Last Dose Date 03/11/17 Valproic Acid Last Dose Time 2100 Test 03/12/17 19:39 Glucose (Fingerstick) 230 mg/dL (70-99) H Current Medications: Meds: Current Medications Acetaminophen (Tylenol) 650 mg PRN Q6HRS PRN PO PAIN / TEMP; Start 03/02/17 at 21:30 Multi-Ingredient Ointment (Analgesic [place]) 1 jasmyne PRN QID PRN TP MUSCLE PAIN Last administered on 03/02/17t 22:32; Start 03/02/17 at 21:30 Al Hydroxide/Mg Hydroxide (Mylanta Plus Xs) 15 ml PRN AFTMEALHC PRN PO DYSPEPSIA; Start 03/02/17 at 21:30 Magnesium Hydroxide (Milk Of Magnesia) 2,400 mg PRN QHS PRN PO CONSTIPATION; Start 03/02/17 at 21:30 Aripiprazole (Abilify) 2 mg DAILY PO Last administered on 03/05/17 07:36; Start 03/03/17 at 09:00; Stop 03/05/17 at 12:09; Status DC Citalopram Hydrobromide (CeleXA) 20 mg DAILY PO Last administered on 03/04/17 09:30; Start 03/03/17 at 09:00; Stop 03/04/17 at 12:11; Status DC Donepezil HCl (Aricept) 10 mg DAILY PO Last administered on 03/12/17 09:18; Start 03/03/17 at 09:00 Lorazepam (Ativan) 0.5 mg PRN TID PRN PO ANXIETY / AGITATION; Start 03/02/17 at 21:30 Amlodipine Besylate (Norvasc) 5 mg DAILY PO Last administered on 03/11/17 08: 16; Start 03/03/17 at 09:00; Stop 03/11/17 at 23:24; Status DC Vitamin D (Vitamin D3) 5,000 unit DAILY PO Last administered on 03/12/17 09:17 ; Start 03/03/17 at 09:00 Clopidogrel Bisulfate (Plavix) 75 mg DAILY PO Last administered on 03/12/17 09 :18; Start 03/03/17 at 09:00 Cyanocobalamin (Vitamin B-12) 1,000 mcg DAILY PO Last administered on 09:18; Start 03/03/17 at 09:00 Acetaminophen/ Hydrocodone Bitart (Lortab 7.5/325) 1 tab QID PO Last administered on 03/12/17 20:09; Start 03/02/17 at 22:00 Insulin Detemir (Levemir) 25 units QHS SQ Last administered on 03/12/17 22:02 ; Start 03/02/17 at 22:00 Nystatin (Nystop) 1 jasmyne PRN BID PRN TP REDNESS Last administered on 03/03/17 08:04; Start 03/02/17 at 21:45 Pyridoxine HCl (Vitamin B-6) 100 mg DAILY PO Last administered on 03/12/17 09: 18; Start 03/03/17 at 09:00 Atorvastatin Calcium (Lipitor) 40 mg QHS PO Last administered on 03/12/17 20: 09; Start 03/02/17 at 22:00 Gabapentin (Neurontin) 600 mg TID PO Last administered on 03/12/17 20:09; Start 03/02/17 at 22:00 Vitamin B Complex 1 cap BID PO Last administered on 03/12/17 20:08; Start at 09:00 Multi-Ingred Cream/Lotion/Oil/ Oint (Artificial Tears Eye Oint) 1 jasmyne BID OU Last administered on 03/06/17 19:42; Start 03/02/17 at 22:00; Stop 03/06/17 at 21:23; Status DC Insulin Aspart (NovoLOG) 0-5 UNITS TIDWMEALS SQ Last administered on 03/12/17 17:21; Start 03/03/17 at 08:00 Dextrose 12.5 gm PRN Q15MIN PRN IV SEE COMMENTS; Start 03/02/17 at 21:45 Magnesium Oxide (Magnesium Oxide) 400 mg TID PO Last administered on 03/12/17 20:08; Start 03/03/17 at 21:00 Sodium Bicarbonate 650 mg BID PO Last administered on 03/12/17 20:08; Start at 21:00 Duloxetine HCl (Cymbalta) 30 mg DAILY PO Last administered on 03/12/17 09:18; Start 03/05/17 at 09:00 Aripiprazole (Abilify) 5 mg DAILY PO Last administered on 03/12/17 09:18; Start 03/06/17 at 09:00 Artificial Tears (Artificial Tears) 1 drop BID OU Last administered on 20:08; Start 03/07/17 at 09:00 Fluticasone Propionate (Flonase) 2 spray DAILY NS Last administered on 08:25; Start 03/08/17 at 13:15 Glucose (Insta-Glucose) 15 gm STK-MED ONCE .ROUTE Last administered on 12:11; Start 03/09/17 at 11:38; Stop 03/09/17 at 11:39; Status DC Divalproex Sodium (Depakote Sprinkles) 125 mg BID92 PO Last administered on t 13:19; Start 03/09/17 at 14:00 Active Scripts Active Reported [place] 7.5-325 Tablet (Hydrocodone Bit/Acetaminophen) 1 Each Tablet 1 Tab PO QID Metanx Capsule (Levomefolate/B6/B12/Algal Oil) 1 Each Capsule 1 Cap PO BID Lorazepam 0.5 Mg Tablet 0.5 Mg PO PRN TID PRN Abilify (Aripiprazole) 2 Mg Tablet 2 Mg PO DAILY Celexa (Citalopram Hydrobromide) 20 Mg Tablet 20 Mg PO DAILY Neurontin (Gabapentin) 600 Mg Tablet 600 Mg PO TID [Arnicare Gel] 1 Jasmyne TOP PRN BID PRN Donepezil Hcl 10 Mg Tablet 10 Mg PO DAILY Levemir Flextouch (Insulin Detemir) 100 Unit/1 Ml Insuln.pen 25 Unit SQ QHS Klor-Con M20 (Potassium Chloride) 20 Meq Tab.er.prt 40 Meq PO DAILY Novolog Flexpen (Insulin Aspart) 100 Unit/1 Ml Insuln.pen 0-5 Unit SQ TIDWMEALS Nystatin 15 Gm Powder 1 Jasmyne TP PRN BID PRN Pyridoxine Hcl 100 Mg Tablet 100 Mg PO DAILY Norvasc (Amlodipine Besylate) 5 Mg Tablet 5 Mg PO DAILY Atorvastatin Calcium 40 Mg Tablet 40 Mg PO QHS Plavix (Clopidogrel Bisulfate) 75 Mg Tablet 75 Mg PO DAILY Refresh Lacri-Lube Ointment (Mineral Oil/Petrolatum,White) 3.5 Gm Oint...g. 1 Jasmyne OU BID Vitamin B-12 (Cyanocobalamin (Vitamin B-12)) 1,000 Mcg Tablet 1,000 Mcg PO DAILY Vitamin D3 (Cholecalciferol (Vitamin D3)) 1,000 Unit Tablet 5,000 Unit PO DAILY Diagnosis: Problems: (1) Anxiety disorder (2) Impulse control disorder (3) Major depressive disorder, recurrent episode (4) Dementia in Alzheimer's disease with depression (5) Dementia in Alzheimer's disease with delusions ALESSANDRA IBRAHIM MD Mar 12, 2017 22:52
[2017-03-13 06:40] VITALS: BP 153/59
[2017-03-13] MEDS: INSULIN ASPART 300 UNITS/3 ML INSULN.PEN SQ SCH ×3 (08:00→17:09)
[2017-03-13] MEDS: DULoxetine HCL 30 MG CAPSULE.DR PO SCH (09:25)
[2017-03-13] MEDS: GABAPENTIN 300 MG CAPSULE. PO SCH ×3 (09:25→20:18)
[2017-03-13] MEDS: ARIPiprazole 5 MG TABLET PO SCH (09:25)
[2017-03-13] MEDS: MAGNESIUM OXIDE 400 MG TABLET PO SCH ×3 (09:25→20:19)
[2017-03-13] MEDS: VITAMIN B COMPLEX CAPSULE. PO SCH ×2 (09:25→20:18)
[2017-03-13] MEDS: CYANOCOBALAMIN (VITAMIN B-12) 1,000 MCG TABLET. PO SCH (09:25)
[2017-03-13] MEDS: CLOPIDOGREL BISULFATE 75 MG TABLET PO SCH (09:25)
[2017-03-13] MEDS: DIVALPROEX 125 MG CAP.SPRINK PO SCH ×2 (09:25→13:43)
[2017-03-13] MEDS: DONEPEZIL HCL 10 MG TABLET PO SCH (09:25)
[2017-03-13] MEDS: HYDROcodone/APAP 7.5/325MG 1 TAB TABLET PO SCH ×5 (09:26→20:20)
[2017-03-13] MEDS: CHOLECALCIFEROL (VITAMIN D3) 1,000 UNIT TABLET PO SCH (09:26)
[2017-03-13] MEDS: POLYVINYL ALCOHOL 1.4% OPHTH SOLUTION 15ML BOTTLE. OU SCH ×2 (09:29→20:18)
[2017-03-13] MEDS: PYRIDOXINE 100 MG TABLET. PO SCH (09:30)
[2017-03-13] MEDS: SODIUM BICARBONATE 650 MG TABLET PO SCH ×2 (09:30→20:18)
[2017-03-13] MEDS: FLUTICASONE 50MCG/NASAL SPRAY 16GM BOTTLE. NS SCH (09:30)
[2017-03-13 16:29] VITALS: BP 134/77
[2017-03-13] MEDS: ATORVASTATIN CALCIUM 20 MG TABLET PO SCH (20:18)
[2017-03-13] MEDS: INSULIN DETEMIR 300 UNITS/3 ML INSULN.PEN. SQ SCH (20:27)
--- NOTE | 2017-03-13 21:08 | PDOC ---
Exam Jam Demential Exam: Jam Note: Please also refer to the separate dictated note~for this date of service dictated separately.~Patient seen individually. Discussed the patient with Nursing staff reviewed the chart.~Reviewed interim history and current functioning. Reviewed vital signs,~Labs/ Radiology~and current medications noted below. Continue current treatment with the changes noted in the dictated addendum note Assessment: Vital Signs: Vital Signs Date Time Temp Pulse Resp B/P (MAP) Pulse Ox O2 Delivery O2 Flow Rate FiO2 03/13/17 20:20 18 97 Room Air 03/13/17 16:29 98.0 85 134/77 (96) I&O Intake and Output 03/14/17 07:00 Intake Total 600 ml Balance 600 ml Intake Oral 600 ml Labs: Laboratory Tests Test 03/13/17 07:26 03/13/17 07:45 03/13/17 11:46 03/13/17 16:57 Glucose (Fingerstick) 78 mg/dL (70-99) 81 mg/dL (70-99) 112 mg/dL (70-99) H 190 mg/dL (70-99) H Test 03/13/17 19:11 Glucose (Fingerstick) 111 mg/dL (70-99) H Current Medications: Meds: Current Medications Acetaminophen (Tylenol) 650 mg PRN Q6HRS PRN PO PAIN / TEMP; Start 03/02/17 at 21:30 Multi-Ingredient Ointment (Analgesic [place]) 1 jasmyne PRN QID PRN TP MUSCLE PAIN Last administered on 03/02/17 22:32; Start 03/02/17 at 21:30 Al Hydroxide/Mg Hydroxide (Mylanta Plus Xs) 15 ml PRN AFTMEALHC PRN PO DYSPEPSIA; Start 03/02/17 at 21:30 Magnesium Hydroxide (Milk Of Magnesia) 2,400 mg PRN QHS PRN PO CONSTIPATION; Start 03/02/17 at 21:30 Aripiprazole (Abilify) 2 mg DAILY PO Last administered on 03/05/17 07:36; Start 03/03/17 at 09:00; Stop 03/05/17 at 12:09; Status DC Citalopram Hydrobromide (CeleXA) 20 mg DAILY PO Last administered on 03/04/17 09:30; Start 03/03/17 at 09:00; Stop 03/04/17 at 12:11; Status DC Donepezil HCl (Aricept) 10 mg DAILY PO Last administered on 03/13/17 09:25; Start 03/03/17 at 09:00 Lorazepam (Ativan) 0.5 mg PRN TID PRN PO ANXIETY / AGITATION; Start 03/02/17 at 21:30 Amlodipine Besylate (Norvasc) 5 mg DAILY PO Last administered on 03/11/17 08: 16; Start 03/03/17 at 09:00; Stop 03/11/17 at 23:24; Status DC Vitamin D (Vitamin D3) 5,000 unit DAILY PO Last administered on 03/13/17 09:26 ; Start 03/03/17 at 09:00 Clopidogrel Bisulfate (Plavix) 75 mg DAILY PO Last administered on 03/13/17 09 :25; Start 03/03/17 at 09:00 Cyanocobalamin (Vitamin B-12) 1,000 mcg DAILY PO Last administered on 09:25; Start 03/03/17 at 09:00 Acetaminophen/ Hydrocodone Bitart (Lortab 7.5/325) 1 tab QID PO Last administered on 03/13/17 20:20; Start 03/02/17 at 22:00 Insulin Detemir (Levemir) 25 units QHS SQ Last administered on 03/13/17 20:27 ; Start 03/02/17 at 22:00 Nystatin (Nystop) 1 jasmyne PRN BID PRN TP REDNESS Last administered on 03/03/17 08:04; Start 03/02/17 at 21:45 Pyridoxine HCl (Vitamin B-6) 100 mg DAILY PO Last administered on 03/13/17 09: 30; Start 03/03/17 at 09:00 Atorvastatin Calcium (Lipitor) 40 mg QHS PO Last administered on 03/13/17 20: 18; Start 03/02/17 at 22:00 Gabapentin (Neurontin) 600 mg TID PO Last administered on 03/13/17 20:18; Start 03/02/17 at 22:00 Vitamin B Complex 1 cap BID PO Last administered on 03/13/17 20:18; Start at 09:00 Multi-Ingred Cream/Lotion/Oil/ Oint (Artificial Tears Eye Oint) 1 jasmyne BID OU Last administered on 03/06/17 19:42; Start 03/02/17 at 22:00; Stop 03/06/17 at 21:23; Status DC Insulin Aspart (NovoLOG) 0-5 UNITS TIDWMEALS SQ Last administered on 03/13/17 17:09; Start 03/03/17 at 08:00 Dextrose 12.5 gm PRN Q15MIN PRN IV SEE COMMENTS; Start 03/02/17 at 21:45 Magnesium Oxide (Magnesium Oxide) 400 mg TID PO Last administered on 03/13/17 20:19; Start 03/03/17 at 21:00 Sodium Bicarbonate 650 mg BID PO Last administered on 03/13/17 20:18; Start at 21:00 Duloxetine HCl (Cymbalta) 30 mg DAILY PO Last administered on 03/13/17 09:25; Start 03/05/17 at 09:00; Stop 03/13/17 at 18:38; Status DC Aripiprazole (Abilify) 5 mg DAILY PO Last administered on 03/13/17 09:25; Start 03/06/17 at 09:00 Artificial Tears (Artificial Tears) 1 drop BID OU Last administered on 20:18; Start 03/07/17 at 09:00 Fluticasone Propionate (Flonase) 2 spray DAILY NS Last administered on 09:30; Start 03/08/17 at 13:15 Glucose (Insta-Glucose) 15 gm STK-MED ONCE .ROUTE Last administered on 12:11; Start 03/09/17 at 11:38; Stop 03/09/17 at 11:39; Status DC Divalproex Sodium (Depakote Sprinkles) 125 mg BID92 PO Last administered on 13:43; Start 03/09/17 at 14:00 Cetirizine HCl (ZyrTEC) 10 mg DAILY PO ; Start 03/14/17 at 09:00 Duloxetine HCl (Cymbalta) 40 mg DAILY PO ; Start 03/14/17 at 09:00 Active Scripts Active Reported [place] 7.5-325 Tablet (Hydrocodone Bit/Acetaminophen) 1 Each Tablet 1 Tab PO QID Metanx Capsule (Levomefolate/B6/B12/Algal Oil) 1 Each Capsule 1 Cap PO BID Lorazepam 0.5 Mg Tablet 0.5 Mg PO PRN TID PRN Abilify (Aripiprazole) 2 Mg Tablet 2 Mg PO DAILY Celexa (Citalopram Hydrobromide) 20 Mg Tablet 20 Mg PO DAILY Neurontin (Gabapentin) 600 Mg Tablet 600 Mg PO TID [Arnicare Gel] 1 Jasmyne TOP PRN BID PRN Donepezil Hcl 10 Mg Tablet 10 Mg PO DAILY Levemir Flextouch (Insulin Detemir) 100 Unit/1 Ml Insuln.pen 25 Unit SQ QHS Klor-Con M20 (Potassium Chloride) 20 Meq Tab.er.prt 40 Meq PO DAILY Novolog Flexpen (Insulin Aspart) 100 Unit/1 Ml Insuln.pen 0-5 Unit SQ TIDWMEALS Nystatin 15 Gm Powder 1 Jasmyne TP PRN BID PRN Pyridoxine Hcl 100 Mg Tablet 100 Mg PO DAILY Norvasc (Amlodipine Besylate) 5 Mg Tablet 5 Mg PO DAILY Atorvastatin Calcium 40 Mg Tablet 40 Mg PO QHS Plavix (Clopidogrel Bisulfate) 75 Mg Tablet 75 Mg PO DAILY Refresh Lacri-Lube Ointment (Mineral Oil/Petrolatum,White) 3.5 Gm Oint...g. 1 Jasmyne OU BID Vitamin B-12 (Cyanocobalamin (Vitamin B-12)) 1,000 Mcg Tablet 1,000 Mcg PO DAILY Vitamin D3 (Cholecalciferol (Vitamin D3)) 1,000 Unit Tablet 5,000 Unit PO DAILY Diagnosis: Problems: (1) Anxiety disorder (2) Impulse control disorder (3) Major depressive disorder, recurrent episode (4) Dementia in Alzheimer's disease with depression (5) Dementia in Alzheimer's disease with delusions ALESSANDRA IBRAHIM MD Mar 13, 2017 21:08
[2017-03-14] MEDS: ACETAMINOPHEN 325 MG TABLET PO PRN (06:21)
[2017-03-14 06:25] VITALS: BP 125/63
[2017-03-14] MEDS: INSULIN ASPART 300 UNITS/3 ML INSULN.PEN SQ SCH ×3 (08:00→16:54)
[2017-03-14] MEDS: GABAPENTIN 300 MG CAPSULE. PO SCH ×3 (08:06→19:55)
[2017-03-14] MEDS: CYANOCOBALAMIN (VITAMIN B-12) 1,000 MCG TABLET. PO SCH (08:06)
[2017-03-14] MEDS: VITAMIN B COMPLEX CAPSULE. PO SCH ×2 (08:06→19:55)
[2017-03-14] MEDS: ARIPiprazole 5 MG TABLET PO SCH (08:06)
[2017-03-14] MEDS: DIVALPROEX 125 MG CAP.SPRINK PO SCH ×2 (08:07→14:10)
[2017-03-14] MEDS: MAGNESIUM OXIDE 400 MG TABLET PO SCH ×3 (08:07→19:55)
[2017-03-14] MEDS: SODIUM BICARBONATE 650 MG TABLET PO SCH ×2 (08:07→19:57)
[2017-03-14] MEDS: DONEPEZIL HCL 10 MG TABLET PO SCH (08:07)
[2017-03-14] MEDS: CHOLECALCIFEROL (VITAMIN D3) 1,000 UNIT TABLET PO SCH (08:07)
[2017-03-14] MEDS: PYRIDOXINE 100 MG TABLET. PO SCH (08:07)
[2017-03-14] MEDS: CLOPIDOGREL BISULFATE 75 MG TABLET PO SCH (08:07)
[2017-03-14] MEDS: CETIRIZINE HCL 10 MG TABLET PO SCH (08:10)
[2017-03-14] MEDS: FLUTICASONE 50MCG/NASAL SPRAY 16GM BOTTLE. NS SCH (08:11)
[2017-03-14] MEDS: POLYVINYL ALCOHOL 1.4% OPHTH SOLUTION 15ML BOTTLE. OU SCH ×2 (08:11→19:55)
[2017-03-14] MEDS: HYDROcodone/APAP 7.5/325MG 1 TAB TABLET PO SCH ×4 (08:11→19:58)
[2017-03-14] MEDS: DULoxetine HCL 20 MG CAPSULE.DR PO SCH (08:11)
[2017-03-14 16:11] VITALS: BP 129/55
--- NOTE | 2017-03-14 16:20 | PN ---
DATE: 03/12/2017 PSYCHIATRIC PROGRESS NOTE This is a late entry 03/12/2017, covers elements not covered in my initial note of 03/12/2017. SUBJECTIVE: I met with the patient evening of 03/12/2017. The patient has been intermittently agitated, hostile morning of 03/12/2017, did better in the evening, questionably psychotic at times with short-term memory deficits, but very pleasant as I met with her. Valproic acid level is 14. CBC, CMP unremarkable. REVIEW OF SYSTEMS: Ambulation impaired, with walker. No CV, , pulmonary, eye, ENT system symptoms on review. MENTAL STATUS EXAM: Oriented to herself and situation. Speech is coherent, has some latency. Abstraction fair, computation impaired, language function intact, attention span short, mood and affect somewhat withdrawn, but overall better. LABORATORY DATA: Reviewed. IMPRESSION: Unchanged from initial note. PLAN: Continue psychotropics mentioned in my initial note, review drug interactions, risk/benefit ratio favors no further change. ALESSANDRA IBRAHIM MD DR: CARLA/faith JOB#: [id number] / [id number]
[2017-03-14] MEDS: ATORVASTATIN CALCIUM 20 MG TABLET PO SCH (19:55)
--- NOTE | 2017-03-14 21:01 | PDOC ---
Exam Jam Demential Exam: Jam Note: Please also refer to the separate dictated note~for this date of service dictated separately.~Patient seen individually. Discussed the patient with Nursing staff reviewed the chart.~Reviewed interim history and current functioning. Reviewed vital signs,~Labs/ Radiology~and current medications noted below. Continue current treatment with the changes noted in the dictated addendum note Assessment: Vital Signs: Vital Signs Date Time Temp Pulse Resp B/P (MAP) Pulse Ox O2 Delivery O2 Flow Rate FiO2 03/14/17 19:58 18 98 Room Air 03/14/17 16:11 97.8 64 129/55 (79) I&O Intake and Output 03/15/17 07:00 Intake Total 840 ml Balance 840 ml Intake Oral 840 ml Labs: Laboratory Tests Test 03/14/17 07:23 03/14/17 11:05 03/14/17 16:27 03/14/17 19:24 Glucose (Fingerstick) 99 mg/dL (70-99) 173 mg/dL (70-99) H 115 mg/dL (70-99) H 231 mg/dL (70-99) H Current Medications: Meds: Current Medications Acetaminophen (Tylenol) 650 mg PRN Q6HRS PRN PO PAIN / TEMP Last administered on 03/14/17 06:21; Start 03/02/17 at 21:30 Multi-Ingredient Ointment (Analgesic [place]) 1 jasmyne PRN QID PRN TP MUSCLE PAIN Last administered on 03/02/17 22:32; Start 03/02/17 at 21:30 Al Hydroxide/Mg Hydroxide (Mylanta Plus Xs) 15 ml PRN AFTMEALHC PRN PO DYSPEPSIA; Start 03/02/17 at 21:30 Magnesium Hydroxide (Milk Of Magnesia) 2,400 mg PRN QHS PRN PO CONSTIPATION; Start 03/02/17 at 21:30 Aripiprazole (Abilify) 2 mg DAILY PO Last administered on 03/05/17 07:36; Start 03/03/17 at 09:00; Stop 03/05/17 at 12:09; Status DC Citalopram Hydrobromide (CeleXA) 20 mg DAILY PO Last administered on 03/04/17 09:30; Start 03/03/17 at 09:00; Stop 03/04/17 at 12:11; Status DC Donepezil HCl (Aricept) 10 mg DAILY PO Last administered on 03/14/17 08:07; Start 03/03/17 at 09:00 Lorazepam (Ativan) 0.5 mg PRN TID PRN PO ANXIETY / AGITATION; Start 03/02/17 at 21:30 Amlodipine Besylate (Norvasc) 5 mg DAILY PO Last administered on 03/11/17 08: 16; Start 03/03/17 at 09:00; Stop 03/11/17 at 23:24; Status DC Vitamin D (Vitamin D3) 5,000 unit DAILY PO Last administered on 03/14/17 08:07 ; Start 03/03/17 at 09:00 Clopidogrel Bisulfate (Plavix) 75 mg DAILY PO Last administered on 03/14/17 08 :07; Start 03/03/17 at 09:00 Cyanocobalamin (Vitamin B-12) 1,000 mcg DAILY PO Last administered on 08:06; Start 03/03/17 at 09:00 Acetaminophen/ Hydrocodone Bitart (Lortab 7.5/325) 1 tab QID PO Last administered on 03/14/17 19:58; Start 03/02/17 at 22:00 Insulin Detemir (Levemir) 25 units QHS SQ Last administered on 03/13/17 20:27 ; Start 03/02/17 at 22:00 Nystatin (Nystop) 1 jasmyne PRN BID PRN TP REDNESS Last administered on 03/03/17 08:04; Start 03/02/17 at 21:45 Pyridoxine HCl (Vitamin B-6) 100 mg DAILY PO Last administered on 03/14/17 08: 07; Start 03/03/17 at 09:00 Atorvastatin Calcium (Lipitor) 40 mg QHS PO Last administered on 03/14/17 19: 55; Start 03/02/17 at 22:00 Gabapentin (Neurontin) 600 mg TID PO Last administered on 03/14/17 19:55; Start 03/02/17 at 22:00 Vitamin B Complex 1 cap BID PO Last administered on 03/14/17 19:55; Start at 09:00 Multi-Ingred Cream/Lotion/Oil/ Oint (Artificial Tears Eye Oint) 1 jasmyne BID OU Last administered on 03/06/17 19:42; Start 03/02/17 at 22:00; Stop 03/06/17 at 21:23; Status DC Insulin Aspart (NovoLOG) 0-5 UNITS TIDWMEALS SQ Last administered on 03/14/17 12:12; Start 03/03/17 at 08:00 Dextrose 12.5 gm PRN Q15MIN PRN IV SEE COMMENTS; Start 03/02/17 at 21:45 Magnesium Oxide (Magnesium Oxide) 400 mg TID PO Last administered on 03/14/17 19:55; Start 03/03/17 at 21:00 Sodium Bicarbonate 650 mg BID PO Last administered on 03/14/17 19:57; Start at 21:00 Duloxetine HCl (Cymbalta) 30 mg DAILY PO Last administered on 03/13/17 09:25; Start 03/05/17 at 09:00; Stop 03/13/17 at 18:38; Status DC Aripiprazole (Abilify) 5 mg DAILY PO Last administered on 03/14/17 08:06; Start 03/06/17 at 09:00 Artificial Tears (Artificial Tears) 1 drop BID OU Last administered on 19:55; Start 03/07/17 at 09:00 Fluticasone Propionate (Flonase) 2 spray DAILY NS Last administered on 08:11; Start 03/08/17 at 13:15 Glucose (Insta-Glucose) 15 gm STK-MED ONCE .ROUTE Last administered on 12:11; Start 03/09/17 at 11:38; Stop 03/09/17 at 11:39; Status DC Divalproex Sodium (Depakote Sprinkles) 125 mg BID92 PO Last administered on 14:10; Start 03/09/17 at 14:00 Cetirizine HCl (ZyrTEC) 10 mg DAILY PO Last administered on 03/14/17 08:10; Start 03/14/17 at 09:00 Duloxetine HCl (Cymbalta) 40 mg DAILY PO Last administered on 03/14/17 08:11; Start 03/14/17 at 09:00 Active Scripts Active Reported [place] 7.5-325 Tablet (Hydrocodone Bit/Acetaminophen) 1 Each Tablet 1 Tab PO QID Metanx Capsule (Levomefolate/B6/B12/Algal Oil) 1 Each Capsule 1 Cap PO BID Lorazepam 0.5 Mg Tablet 0.5 Mg PO PRN TID PRN Abilify (Aripiprazole) 2 Mg Tablet 2 Mg PO DAILY Celexa (Citalopram Hydrobromide) 20 Mg Tablet 20 Mg PO DAILY Neurontin (Gabapentin) 600 Mg Tablet 600 Mg PO TID [Arnicare Gel] 1 Jasmyne TOP PRN BID PRN Donepezil Hcl 10 Mg Tablet 10 Mg PO DAILY Levemir Flextouch (Insulin Detemir) 100 Unit/1 Ml Insuln.pen 25 Unit SQ QHS Klor-Con M20 (Potassium Chloride) 20 Meq Tab.er.prt 40 Meq PO DAILY Novolog Flexpen (Insulin Aspart) 100 Unit/1 Ml Insuln.pen 0-5 Unit SQ TIDWMEALS Nystatin 15 Gm Powder 1 Jasmyne TP PRN BID PRN Pyridoxine Hcl 100 Mg Tablet 100 Mg PO DAILY Norvasc (Amlodipine Besylate) 5 Mg Tablet 5 Mg PO DAILY Atorvastatin Calcium 40 Mg Tablet 40 Mg PO QHS Plavix (Clopidogrel Bisulfate) 75 Mg Tablet 75 Mg PO DAILY Refresh Lacri-Lube Ointment (Mineral Oil/Petrolatum,White) 3.5 Gm Oint...g. 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
[2017-03-14] MEDS: INSULIN DETEMIR 300 UNITS/3 ML INSULN.PEN. SQ SCH (22:27)
[2017-03-15] MEDS: ACETAMINOPHEN 325 MG TABLET PO PRN (05:17)
[2017-03-15 06:28] VITALS: BP 147/82
[2017-03-15] MEDS: INSULIN ASPART 300 UNITS/3 ML INSULN.PEN SQ SCH ×3 (07:30→17:00)
[2017-03-15] MEDS: FLUTICASONE 50MCG/NASAL SPRAY 16GM BOTTLE. NS SCH (09:25)
[2017-03-15] MEDS: VITAMIN B COMPLEX CAPSULE. PO SCH ×2 (09:25→19:37)
[2017-03-15] MEDS: CETIRIZINE HCL 10 MG TABLET PO SCH (09:25)
[2017-03-15] MEDS: SODIUM BICARBONATE 650 MG TABLET PO SCH ×2 (09:25→19:39)
[2017-03-15] MEDS: ARIPiprazole 5 MG TABLET PO SCH (09:25)
[2017-03-15] MEDS: CYANOCOBALAMIN (VITAMIN B-12) 1,000 MCG TABLET. PO SCH (09:25)
[2017-03-15] MEDS: CLOPIDOGREL BISULFATE 75 MG TABLET PO SCH (09:25)
[2017-03-15] MEDS: HYDROcodone/APAP 7.5/325MG 1 TAB TABLET PO SCH ×4 (09:25→19:39)
[2017-03-15] MEDS: MAGNESIUM OXIDE 400 MG TABLET PO SCH ×3 (09:25→19:37)
[2017-03-15] MEDS: POLYVINYL ALCOHOL 1.4% OPHTH SOLUTION 15ML BOTTLE. OU SCH ×2 (09:25→19:36)
[2017-03-15] MEDS: DONEPEZIL HCL 10 MG TABLET PO SCH (09:25)
[2017-03-15] MEDS: GABAPENTIN 300 MG CAPSULE. PO SCH ×3 (09:26→19:45)
[2017-03-15] MEDS: PYRIDOXINE 100 MG TABLET. PO SCH (09:26)
[2017-03-15] MEDS: DULoxetine HCL 20 MG CAPSULE.DR PO SCH (09:26)
[2017-03-15] MEDS: CHOLECALCIFEROL (VITAMIN D3) 1,000 UNIT TABLET PO SCH (09:26)
[2017-03-15] MEDS: DIVALPROEX 125 MG CAP.SPRINK PO SCH ×2 (09:26→13:46)
[2017-03-15 16:18] VITALS: BP 119/68
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
[2017-03-15] MEDS: ATORVASTATIN CALCIUM 20 MG TABLET PO SCH (19:37)
[2017-03-15] MEDS: INSULIN DETEMIR 300 UNITS/3 ML INSULN.PEN. SQ SCH (19:40)
--- NOTE | 2017-03-15 20:57 | PDOC ---
Exam Jam Demential Exam: Jam Note: Please also refer to the separate dictated note~for this date of service dictated separately.~Patient seen individually. Discussed the patient with Nursing staff reviewed the chart.~Reviewed interim history and current functioning. Reviewed vital signs,~Labs/ Radiology~and current medications noted below. Continue current treatment with the changes noted in the dictated addendum note Assessment: Vital Signs: Vital Signs Date Time Temp Pulse Resp B/P (MAP) Pulse Ox O2 Delivery O2 Flow Rate FiO2 03/15/17 20:39 18 Room Air 03/15/17 19:39 96 03/15/17 16:18 97.3 73 119/68 (85) I&O Intake and Output 03/16/17 07:00 Intake Total 600 ml Balance 600 ml Intake Oral 600 ml Labs: Laboratory Tests Test 03/15/17 07:11 03/15/17 11:33 03/15/17 16:52 03/15/17 18:58 Glucose (Fingerstick) 109 mg/dL (70-99) H 113 mg/dL (70-99) H 147 mg/dL (70-99) H 157 mg/dL (70-99) H Current Medications: Meds: Current Medications Acetaminophen (Tylenol) 650 mg PRN Q6HRS PRN PO PAIN / TEMP Last administered on 03/15/17 05:17; Start 03/02/17 at 21:30 Multi-Ingredient Ointment (Analgesic [place]) 1 jasmyne PRN QID PRN TP MUSCLE PAIN Last administered on 03/02/17 22:32; Start 03/02/17 at 21:30 Al Hydroxide/Mg Hydroxide (Mylanta Plus Xs) 15 ml PRN AFTMEALHC PRN PO DYSPEPSIA; Start 03/02/17 at 21:30 Magnesium Hydroxide (Milk Of Magnesia) 2,400 mg PRN QHS PRN PO CONSTIPATION; Start 03/02/17 at 21:30 Aripiprazole (Abilify) 2 mg DAILY PO Last administered on 03/05/17 07:36; Start 03/03/17 at 09:00; Stop 03/05/17 at 12:09; Status DC Citalopram Hydrobromide (CeleXA) 20 mg DAILY PO Last administered on 03/04/17 09:30; Start 03/03/17 at 09:00; Stop 03/04/17 at 12:11; Status DC Donepezil HCl (Aricept) 10 mg DAILY PO Last administered on 03/15/17 09:25; Start 03/03/17 at 09:00 Lorazepam (Ativan) 0.5 mg PRN TID PRN PO ANXIETY / AGITATION; Start 03/02/17 at 21:30 Amlodipine Besylate (Norvasc) 5 mg DAILY PO Last administered on 03/11/17 08: 16; Start 03/03/17 at 09:00; Stop 03/11/17 at 23:24; Status DC Vitamin D (Vitamin D3) 5,000 unit DAILY PO Last administered on 03/15/17 09:26 ; Start 03/03/17 at 09:00 Clopidogrel Bisulfate (Plavix) 75 mg DAILY PO Last administered on 03/15/17 09 :25; Start 03/03/17 at 09:00 Cyanocobalamin (Vitamin B-12) 1,000 mcg DAILY PO Last administered on 09:25; Start 03/03/17 at 09:00 Acetaminophen/ Hydrocodone Bitart (Lortab 7.5/325) 1 tab QID PO Last administered on 03/15/17 19:39; Start 03/02/17 at 22:00 Insulin Detemir (Levemir) 25 units QHS SQ Last administered on 03/15/17 19:40 ; Start 03/02/17 at 22:00 Nystatin (Nystop) 1 jasmyne PRN BID PRN TP REDNESS Last administered on 03/03/17 08:04; Start 03/02/17 at 21:45 Pyridoxine HCl (Vitamin B-6) 100 mg DAILY PO Last administered on 03/15/17 09: 26; Start 03/03/17 at 09:00 Atorvastatin Calcium (Lipitor) 40 mg QHS PO Last administered on 03/15/17 19: 37; Start 03/02/17 at 22:00 Gabapentin (Neurontin) 600 mg TID PO Last administered on 03/15/17 19:45; Start 03/02/17 at 22:00 Vitamin B Complex 1 cap BID PO Last administered on 03/15/17 19:37; Start at 09:00 Multi-Ingred Cream/Lotion/Oil/ Oint (Artificial Tears Eye Oint) 1 jasmyne BID OU Last administered on 03/06/17 19:42; Start 03/02/17 at 22:00; Stop 03/06/17 at 21:23; Status DC Insulin Aspart (NovoLOG) 0-5 UNITS TIDWMEALS SQ Last administered on 03/14/17 12:12; Start 03/03/17 at 08:00 Dextrose 12.5 gm PRN Q15MIN PRN IV SEE COMMENTS; Start 03/02/17 at 21:45 Magnesium Oxide (Magnesium Oxide) 400 mg TID PO Last administered on 03/15/17 19:37; Start 03/03/17 at 21:00 Sodium Bicarbonate 650 mg BID PO Last administered on 03/15/17 19:39; Start at 21:00 Duloxetine HCl (Cymbalta) 30 mg DAILY PO Last administered on 03/13/17 09:25; Start 03/05/17 at 09:00; Stop 03/13/17 at 18:38; Status DC Aripiprazole (Abilify) 5 mg DAILY PO Last administered on 03/15/17 09:25; Start 03/06/17 at 09:00 Artificial Tears (Artificial Tears) 1 drop BID OU Last administered on 19:36; Start 03/07/17 at 09:00 Fluticasone Propionate (Flonase) 2 spray DAILY NS Last administered on 09:25; Start 03/08/17 at 13:15 Glucose (Insta-Glucose) 15 gm STK-MED ONCE .ROUTE Last administered on 12:11; Start 03/09/17 at 11:38; Stop 03/09/17 at 11:39; Status DC Divalproex Sodium (Depakote Sprinkles) 125 mg BID92 PO Last administered on 13:46; Start 03/09/17 at 14:00 Cetirizine HCl (ZyrTEC) 10 mg DAILY PO Last administered on 03/15/17 09:25; Start 03/14/17 at 09:00 Duloxetine HCl (Cymbalta) 40 mg DAILY PO Last administered on 03/15/17 09:26; Start 03/14/17 at 09:00 Active Scripts Active Reported [place] 7.5-325 Tablet (Hydrocodone Bit/Acetaminophen) 1 Each Tablet 1 Tab PO QID Metanx Capsule (Levomefolate/B6/B12/Algal Oil) 1 Each Capsule 1 Cap PO BID Lorazepam 0.5 Mg Tablet 0.5 Mg PO PRN TID PRN Abilify (Aripiprazole) 2 Mg Tablet 2 Mg PO DAILY Celexa (Citalopram Hydrobromide) 20 Mg Tablet 20 Mg PO DAILY Neurontin (Gabapentin) 600 Mg Tablet 600 Mg PO TID [Arnicare Gel] 1 Jasmyne TOP PRN BID PRN Donepezil Hcl 10 Mg Tablet 10 Mg PO DAILY Levemir Flextouch (Insulin Detemir) 100 Unit/1 Ml Insuln.pen 25 Unit SQ QHS Klor-Con M20 (Potassium Chloride) 20 Meq Tab.er.prt 40 Meq PO DAILY Novolog Flexpen (Insulin Aspart) 100 Unit/1 Ml Insuln.pen 0-5 Unit SQ TIDWMEALS Nystatin 15 Gm Powder 1 Jasmyne TP PRN BID PRN Pyridoxine Hcl 100 Mg Tablet 100 Mg PO DAILY Norvasc (Amlodipine Besylate) 5 Mg Tablet 5 Mg PO DAILY Atorvastatin Calcium 40 Mg Tablet 40 Mg PO QHS Plavix (Clopidogrel Bisulfate) 75 Mg Tablet 75 Mg PO DAILY Refresh Lacri-Lube Ointment (Mineral Oil/Petrolatum,White) 3.5 Gm Oint...g. 1 Jasmyne OU BID Vitamin B-12 (Cyanocobalamin (Vitamin B-12)) 1,000 Mcg Tablet 1,000 Mcg PO DAILY Vitamin D3 (Cholecalciferol (Vitamin D3)) 1,000 Unit Tablet 5,000 Unit PO DAILY Diagnosis: Problems: (1) Anxiety disorder (2) Impulse control disorder (3) Major depressive disorder, recurrent episode (4) Dementia in Alzheimer's disease with depression (5) Dementia in Alzheimer's disease with delusions ALESSANDRA IBRAHIM MD Mar 15, 2017 20:57
--- NOTE | 2017-03-16 05:06 | PN ---
DATE: 03/14/2017 This late entry for 03/14/2017 covers elements not covered in my initial note of 03/14/2017. SUBJECTIVE: I met with the patient in the evening of 03/14/2017 and returned the call from the patient's son, Joshua Gautam, . Joshua had many questions about the patient's diagnosis, whether it would be appropriate for her to come down to live with him in his home with his in [place]. Joshua noted the patient relates well with his , has difficulty relating to his daughter who lives in this area and felt it would be much better for her if she came down there. Certainly, change in environment and mood might be stressful, but given the description by the son in fact it maybe therapeutically beneficial, but we will have to let the family decide on this. She has not been tearful as much, still is sad at times, but social, withdrawn to her room at times. Daughter visited and the patient did not have distressed mood after the daughter left. REVIEW OF SYSTEMS: Ambulation impaired with walker. No CV, , pulmonary, eye, ENT system symptoms on review. Reliability poor. MENTAL STATUS EXAM: Oriented to herself and situation. Speech has some latency, low in volume, often responses monosyllabic. Abstraction fair, computation impaired, language function intact. Attention span short. Short-term memory is impaired. LABORATORY DATA: Reviewed. IMPRESSION: Unchanged from initial note. PLAN: Continue current psychotropics. Reviewed drug interactions. Risk/benefit ratio favors no further change. Joshua related how the patient was on 2700 mg Neurontin in the past it was suddenly discontinued, made her behaviors much worse. She is currently on 600 mg t.i.d. We will adjust further as clinically indicated. MAN Elizabeth IBRAHIM MD DR: CARLA/faith JOB#: [id number] / [id number]
[2017-03-16 06:02] VITALS: BP 122/66
[2017-03-16] MEDS: INSULIN ASPART 300 UNITS/3 ML INSULN.PEN SQ SCH ×3 (08:00→17:00)
[2017-03-16] MEDS: CETIRIZINE HCL 10 MG TABLET PO SCH (08:29)
[2017-03-16] MEDS: ARIPiprazole 5 MG TABLET PO SCH (08:30)
[2017-03-16] MEDS: GABAPENTIN 300 MG CAPSULE. PO SCH ×3 (08:30→20:02)
[2017-03-16] MEDS: CHOLECALCIFEROL (VITAMIN D3) 1,000 UNIT TABLET PO SCH (08:30)
[2017-03-16] MEDS: CLOPIDOGREL BISULFATE 75 MG TABLET PO SCH (08:30)
[2017-03-16] MEDS: VITAMIN B COMPLEX CAPSULE. PO SCH ×2 (08:30→20:03)
[2017-03-16] MEDS: DIVALPROEX 125 MG CAP.SPRINK PO SCH ×2 (08:30→14:33)
[2017-03-16] MEDS: DONEPEZIL HCL 10 MG TABLET PO SCH (08:30)
[2017-03-16] MEDS: DULoxetine HCL 20 MG CAPSULE.DR PO SCH (08:30)
[2017-03-16] MEDS: MAGNESIUM OXIDE 400 MG TABLET PO SCH ×3 (08:30→20:02)
[2017-03-16] MEDS: CYANOCOBALAMIN (VITAMIN B-12) 1,000 MCG TABLET. PO SCH (08:30)
[2017-03-16] MEDS: PYRIDOXINE 100 MG TABLET. PO SCH (08:33)
[2017-03-16] MEDS: FLUTICASONE 50MCG/NASAL SPRAY 16GM BOTTLE. NS SCH (08:33)
[2017-03-16] MEDS: POLYVINYL ALCOHOL 1.4% OPHTH SOLUTION 15ML BOTTLE. OU SCH ×2 (08:33→20:27)
[2017-03-16] MEDS: SODIUM BICARBONATE 650 MG TABLET PO SCH ×2 (08:33→20:09)
[2017-03-16] MEDS: HYDROcodone/APAP 7.5/325MG 1 TAB TABLET PO SCH ×4 (08:34→20:08)
[2017-03-16 16:16] VITALS: BP 139/58
[2017-03-16] MEDS: ATORVASTATIN CALCIUM 20 MG TABLET PO SCH (20:02)
[2017-03-16] MEDS: INSULIN DETEMIR 300 UNITS/3 ML INSULN.PEN. SQ SCH (20:10)
--- NOTE | 2017-03-16 20:51 | PDOC ---
Exam Jam Demential Exam: Jam Note: Please also refer to the separate dictated note~for this date of service dictated separately.~Patient seen individually. Discussed the patient with Nursing staff reviewed the chart.~Reviewed interim history and current functioning. Reviewed vital signs,~Labs/ Radiology~and current medications noted below. Continue current treatment with the changes noted in the dictated addendum note Assessment: Vital Signs: Vital Signs Date Time Temp Pulse Resp B/P (MAP) Pulse Ox O2 Delivery O2 Flow Rate FiO2 03/16/17 20:08 Room Air 03/16/17 19:12 96 03/16/17 16:16 98.8 71 18 139/58 (85) I&O Intake and Output 03/17/17 06:59 Intake Total 840 ml Balance 840 ml Intake Oral 840 ml Labs: Laboratory Tests Test 03/16/17 08:09 03/16/17 12:01 03/16/17 16:28 03/16/17 18:58 Glucose (Fingerstick) 69 mg/dL (70-99) L 90 mg/dL (70-99) 129 mg/dL (70-99) H 248 mg/dL (70-99) H Current Medications: Meds: Current Medications Acetaminophen (Tylenol) 650 mg PRN Q6HRS PRN PO PAIN / TEMP Last administered on 03/15/17 05:17; Start 03/02/17 at 21:30 Multi-Ingredient Ointment (Analgesic [place]) 1 jasmyne PRN QID PRN TP MUSCLE PAIN Last administered on 03/02/17 22:32; Start 03/02/17 at 21:30 Al Hydroxide/Mg Hydroxide (Mylanta Plus Xs) 15 ml PRN AFTMEALHC PRN PO DYSPEPSIA; Start 03/02/17 at 21:30 Magnesium Hydroxide (Milk Of Magnesia) 2,400 mg PRN QHS PRN PO CONSTIPATION; Start 03/02/17 at 21:30 Aripiprazole (Abilify) 2 mg DAILY PO Last administered on 03/05/17 07:36; Start 03/03/17 at 09:00; Stop 03/05/17 at 12:09; Status DC Citalopram Hydrobromide (CeleXA) 20 mg DAILY PO Last administered on 03/04/17 09:30; Start 03/03/17 at 09:00; Stop 03/04/17 at 12:11; Status DC Donepezil HCl (Aricept) 10 mg DAILY PO Last administered on 03/16/17 08:30; Start 03/03/17 at 09:00 Lorazepam (Ativan) 0.5 mg PRN TID PRN PO ANXIETY / AGITATION; Start 03/02/17 at 21:30 Amlodipine Besylate (Norvasc) 5 mg DAILY PO Last administered on 03/11/17 08: 16; Start 03/03/17 at 09:00; Stop 03/11/17 at 23:24; Status DC Vitamin D (Vitamin D3) 5,000 unit DAILY PO Last administered on 03/16/17 08:30 ; Start 03/03/17 at 09:00 Clopidogrel Bisulfate (Plavix) 75 mg DAILY PO Last administered on 03/16/17 08 :30; Start 03/03/17 at 09:00 Cyanocobalamin (Vitamin B-12) 1,000 mcg DAILY PO Last administered on 08:30; Start 03/03/17 at 09:00 Acetaminophen/ Hydrocodone Bitart (Lortab 7.5/325) 1 tab QID PO Last administered on 03/16/17 20:08; Start 03/02/17 at 22:00 Insulin Detemir (Levemir) 25 units QHS SQ Last administered on 03/16/17 20:10 ; Start 03/02/17 at 22:00 Nystatin (Nystop) 1 jasmyne PRN BID PRN TP REDNESS Last administered on 03/03/17 08:04; Start 03/02/17 at 21:45 Pyridoxine HCl (Vitamin B-6) 100 mg DAILY PO Last administered on 03/16/17 08: 33; Start 03/03/17 at 09:00 Atorvastatin Calcium (Lipitor) 40 mg QHS PO Last administered on 03/16/17 20: 02; Start 03/02/17 at 22:00 Gabapentin (Neurontin) 600 mg TID PO Last administered on 03/16/17 20:02; Start 03/02/17 at 22:00 Vitamin B Complex 1 cap BID PO Last administered on 03/16/17 20:03; Start at 09:00 Multi-Ingred Cream/Lotion/Oil/ Oint (Artificial Tears Eye Oint) 1 jasmyne BID OU Last administered on 03/06/17 19:42; Start 03/02/17 at 22:00; Stop 03/06/17 at 21:23; Status DC Insulin Aspart (NovoLOG) 0-5 UNITS TIDWMEALS SQ Last administered on 03/14/17 12:12; Start 03/03/17 at 08:00 Dextrose 12.5 gm PRN Q15MIN PRN IV SEE COMMENTS; Start 03/02/17 at 21:45 Magnesium Oxide (Magnesium Oxide) 400 mg TID PO Last administered on 03/16/17 20:02; Start 03/03/17 at 21:00 Sodium Bicarbonate 650 mg BID PO Last administered on 03/16/17 20:09; Start at 21:00 Duloxetine HCl (Cymbalta) 30 mg DAILY PO Last administered on 03/13/17 09:25; Start 03/05/17 at 09:00; Stop 03/13/17 at 18:38; Status DC Aripiprazole (Abilify) 5 mg DAILY PO Last administered on 03/16/17 08:30; Start 03/06/17 at 09:00; Stop 03/16/17 at 14:38; Status DC Artificial Tears (Artificial Tears) 1 drop BID OU Last administered on 20:27; Start 03/07/17 at 09:00 Fluticasone Propionate (Flonase) 2 spray DAILY NS Last administered on 08:33; Start 03/08/17 at 13:15 Glucose (Insta-Glucose) 15 gm STK-MED ONCE .ROUTE Last administered on 12:11; Start 03/09/17 at 11:38; Stop 03/09/17 at 11:39; Status DC Divalproex Sodium (Depakote Sprinkles) 125 mg BID92 PO Last administered on 14:33; Start 03/09/17 at 14:00 Cetirizine HCl (ZyrTEC) 10 mg DAILY PO Last administered on 03/16/17 08:29; Start 03/14/17 at 09:00 Duloxetine HCl (Cymbalta) 40 mg DAILY PO Last administered on 03/16/17t 08:30; Start 03/14/17 at 09:00 Aripiprazole (Abilify) 2.5 mg DAILY PO ; Start 03/17/17 at 09:00 Active Scripts Active Reported [place] 7.5-325 Tablet (Hydrocodone Bit/Acetaminophen) 1 Each Tablet 1 Tab PO QID Metanx Capsule (Levomefolate/B6/B12/Algal Oil) 1 Each Capsule 1 Cap PO BID Lorazepam 0.5 Mg Tablet 0.5 Mg PO PRN TID PRN Abilify (Aripiprazole) 2 Mg Tablet 2 Mg PO DAILY Celexa (Citalopram Hydrobromide) 20 Mg Tablet 20 Mg PO DAILY Neurontin (Gabapentin) 600 Mg Tablet 600 Mg PO TID [Arnicare Gel] 1 Jasmyne TOP PRN BID PRN Donepezil Hcl 10 Mg Tablet 10 Mg PO DAILY Levemir Flextouch (Insulin Detemir) 100 Unit/1 Ml Insuln.pen 25 Unit SQ QHS Klor-Con M20 (Potassium Chloride) 20 Meq Tab.er.prt 40 Meq PO DAILY Novolog Flexpen (Insulin Aspart) 100 Unit/1 Ml Insuln.pen 0-5 Unit SQ TIDWMEALS Nystatin 15 Gm Powder 1 Jasmyne TP PRN BID PRN Pyridoxine Hcl 100 Mg Tablet 100 Mg PO DAILY Norvasc (Amlodipine Besylate) 5 Mg Tablet 5 Mg PO DAILY Atorvastatin Calcium 40 Mg Tablet 40 Mg PO QHS Plavix (Clopidogrel Bisulfate) 75 Mg Tablet 75 Mg PO DAILY Refresh Lacri-Lube Ointment (Mineral Oil/Petrolatum,White) 3.5 Gm Oint...g. 1 Jasmyne OU BID Vitamin B-12 (Cyanocobalamin (Vitamin B-12)) 1,000 Mcg Tablet 1,000 Mcg PO DAILY Vitamin D3 (Cholecalciferol (Vitamin D3)) 1,000 Unit Tablet 5,000 Unit PO DAILY Diagnosis: Problems: (1) Anxiety disorder (2) Impulse control disorder (3) Major depressive disorder, recurrent episode (4) Dementia in Alzheimer's disease with depression (5) Dementia in Alzheimer's disease with delusions ALESSANDRA IBRAHIM MD Mar 16, 2017 20:51
[2017-03-17 06:20] VITALS: BP 133/70
[2017-03-17] MEDS: INSULIN ASPART 300 UNITS/3 ML INSULN.PEN SQ SCH ×3 (08:00→16:56)
[2017-03-17] MEDS: POLYVINYL ALCOHOL 1.4% OPHTH SOLUTION 15ML BOTTLE. OU SCH ×2 (08:31→19:51)
[2017-03-17] MEDS: SODIUM BICARBONATE 650 MG TABLET PO SCH ×2 (08:32→19:51)
[2017-03-17] MEDS: PYRIDOXINE 100 MG TABLET. PO SCH (08:32)
[2017-03-17] MEDS: CHOLECALCIFEROL (VITAMIN D3) 1,000 UNIT TABLET PO SCH (08:34)
[2017-03-17] MEDS: VITAMIN B COMPLEX CAPSULE. PO SCH ×2 (08:34→19:48)
[2017-03-17] MEDS: CETIRIZINE HCL 10 MG TABLET PO SCH (08:34)
[2017-03-17] MEDS: DONEPEZIL HCL 10 MG TABLET PO SCH (08:34)
[2017-03-17] MEDS: DIVALPROEX 125 MG CAP.SPRINK PO SCH ×2 (08:34→13:29)
[2017-03-17] MEDS: MAGNESIUM OXIDE 400 MG TABLET PO SCH ×3 (08:34→19:48)
[2017-03-17] MEDS: CYANOCOBALAMIN (VITAMIN B-12) 1,000 MCG TABLET. PO SCH (08:34)
[2017-03-17] MEDS: CLOPIDOGREL BISULFATE 75 MG TABLET PO SCH (08:34)
[2017-03-17] MEDS: GABAPENTIN 300 MG CAPSULE. PO SCH ×3 (08:34→19:48)
[2017-03-17] MEDS: ARIPiprazole 5 MG TABLET PO SCH (08:39)
[2017-03-17] MEDS: DULoxetine HCL 20 MG CAPSULE.DR PO SCH (08:40)
[2017-03-17] MEDS: HYDROcodone/APAP 7.5/325MG 1 TAB TABLET PO SCH ×4 (08:40→19:51)
[2017-03-17] MEDS: FLUTICASONE 50MCG/NASAL SPRAY 16GM BOTTLE. NS SCH (08:41)
--- NOTE | 2017-03-17 15:01 | PN ---
DATE: 03/15/2017 This is a late entry for 03/15/2017 and covers the elements not covered in my initial note of 03/15/2017. SUBJECTIVE: I met with the patient the evening of 03/15/2017. The patient has done better during the day, asked for her leg wraps to be removed in the evening, irritable at times, redirects. REVIEW OF SYSTEMS: Impaired ambulation, lower extremity swelling. No CV, , pulmonary, eye, ENT system symptoms on review. MENTAL STATUS EXAM: Oriented to herself and situation. Speech moderate latency, often responses monosyllabic. Abstraction fair, computation impaired, language function intact, attention span fair. We discussed her possible move to [place] and she is wanting to do this, seems to want to be with her son. We will discuss it at the staffing 03/16/2017. Reviewed drug interactions. Risk/benefit ratio favors no further change. ALESSANDRA IBRAHIM MD DR: CARLA/faith JOB#: [id number] / [id number]
[2017-03-17 16:29] VITALS: BP 138/81
[2017-03-17] MEDS: ATORVASTATIN CALCIUM 20 MG TABLET PO SCH (19:48)
[2017-03-17] MEDS: INSULIN DETEMIR 300 UNITS/3 ML INSULN.PEN. SQ SCH (19:54)
--- NOTE | 2017-03-17 22:21 | PDOC ---
Exam Jam Demential Exam: Jam Note: Please also refer to the separate dictated note~for this date of service dictated separately.~Patient seen individually. Discussed the patient with Nursing staff reviewed the chart.~Reviewed interim history and current functioning. Reviewed vital signs,~Labs/ Radiology~and current medications noted below. Continue current treatment with the changes noted in the dictated addendum note Assessment: Vital Signs: Vital Signs Date Time Temp Pulse Resp B/P (MAP) Pulse Ox O2 Delivery O2 Flow Rate FiO2 03/17/17 16:55 98 03/17/17 16:29 97.7 88 20 138/81 (100) 03/16/17 20:08 Room Air I&O Intake and Output 03/18/17 07:00 Intake Total 1080 ml Balance 1080 ml Intake Oral 1080 ml # Bowel Movements 1 Labs: Laboratory Tests Test 03/17/17 11:20 03/17/17 16:24 03/17/17 19:05 Glucose (Fingerstick) 156 mg/dL (70-99) H 142 mg/dL (70-99) H 226 mg/dL (70-99) H Current Medications: Meds: Current Medications Acetaminophen (Tylenol) 650 mg PRN Q6HRS PRN PO PAIN / TEMP Last administered on 03/15/17 05:17; Start 03/02/17 at 21:30 Multi-Ingredient Ointment (Analgesic [place]) 1 jasmyne PRN QID PRN TP MUSCLE PAIN Last administered on 03/02/17 22:32; Start 03/02/17 at 21:30 Al Hydroxide/Mg Hydroxide (Mylanta Plus Xs) 15 ml PRN AFTMEALHC PRN PO DYSPEPSIA; Start 03/02/17 at 21:30 Magnesium Hydroxide (Milk Of Magnesia) 2,400 mg PRN QHS PRN PO CONSTIPATION; Start 03/02/17 at 21:30 Aripiprazole (Abilify) 2 mg DAILY PO Last administered on 03/05/17 07:36; Start 03/03/17 at 09:00; Stop 03/05/17 at 12:09; Status DC Citalopram Hydrobromide (CeleXA) 20 mg DAILY PO Last administered on 03/04/17 09:30; Start 03/03/17 at 09:00; Stop 03/04/17 at 12:11; Status DC Donepezil HCl (Aricept) 10 mg DAILY PO Last administered on 03/17/17 08:34; Start 03/03/17 at 09:00 Lorazepam (Ativan) 0.5 mg PRN TID PRN PO ANXIETY / AGITATION; Start 03/02/17 at 21:30 Amlodipine Besylate (Norvasc) 5 mg DAILY PO Last administered on 03/11/17 08: 16; Start 03/03/17 at 09:00; Stop 03/11/17 at 23:24; Status DC Vitamin D (Vitamin D3) 5,000 unit DAILY PO Last administered on 03/17/17 08:34 ; Start 03/03/17 at 09:00 Clopidogrel Bisulfate (Plavix) 75 mg DAILY PO Last administered on 03/17/17 08 :34; Start 03/03/17 at 09:00 Cyanocobalamin (Vitamin B-12) 1,000 mcg DAILY PO Last administered on 08:34; Start 03/03/17 at 09:00 Acetaminophen/ Hydrocodone Bitart (Lortab 7.5/325) 1 tab QID PO Last administered on 03/17/17 19:51; Start 03/02/17 at 22:00 Insulin Detemir (Levemir) 25 units QHS SQ Last administered on 03/17/17 19:54 ; Start 03/02/17 at 22:00 Nystatin (Nystop) 1 jasmyne PRN BID PRN TP REDNESS Last administered on 03/03/17 08:04; Start 03/02/17 at 21:45 Pyridoxine HCl (Vitamin B-6) 100 mg DAILY PO Last administered on 03/17/17 08: 32; Start 03/03/17 at 09:00 Atorvastatin Calcium (Lipitor) 40 mg QHS PO Last administered on 03/17/17 19: 48; Start 03/02/17 at 22:00 Gabapentin (Neurontin) 600 mg TID PO Last administered on 03/17/17 19:48; Start 03/02/17 at 22:00 Vitamin B Complex 1 cap BID PO Last administered on 03/17/17 19:48; Start at 09:00 Multi-Ingred Cream/Lotion/Oil/ Oint (Artificial Tears Eye Oint) 1 jasmyne BID OU Last administered on 03/06/17 19:42; Start 03/02/17 at 22:00; Stop 03/06/17 at 21:23; Status DC Insulin Aspart (NovoLOG) 0-5 UNITS TIDWMEALS SQ Last administered on 03/17/17 12:28; Start 03/03/17 at 08:00 Dextrose 12.5 gm PRN Q15MIN PRN IV SEE COMMENTS; Start 03/02/17 at 21:45 Magnesium Oxide (Magnesium Oxide) 400 mg TID PO Last administered on 03/17/17 19:48; Start 03/03/17 at 21:00 Sodium Bicarbonate 650 mg BID PO Last administered on 03/17/17 19:51; Start at 21:00 Duloxetine HCl (Cymbalta) 30 mg DAILY PO Last administered on 03/13/17 09:25; Start 03/05/17 at 09:00; Stop 03/13/17 at 18:38; Status DC Aripiprazole (Abilify) 5 mg DAILY PO Last administered on 03/16/17 08:30; Start 03/06/17 at 09:00; Stop 03/16/17 at 14:38; Status DC Artificial Tears (Artificial Tears) 1 drop BID OU Last administered on 19:51; Start 03/07/17 at 09:00 Fluticasone Propionate (Flonase) 2 spray DAILY NS Last administered on 08:41; Start 03/08/17 at 13:15 Glucose (Insta-Glucose) 15 gm STK-MED ONCE .ROUTE Last administered on 12:11; Start 03/09/17 at 11:38; Stop 03/09/17 at 11:39; Status DC Divalproex Sodium (Depakote Sprinkles) 125 mg BID92 PO Last administered on 13:29; Start 03/09/17 at 14:00 Cetirizine HCl (ZyrTEC) 10 mg DAILY PO Last administered on 03/17/17 08:34; Start 03/14/17 at 09:00 Duloxetine HCl (Cymbalta) 40 mg DAILY PO Last administered on 03/17/17 08:40; Start 03/14/17 at 09:00 Aripiprazole (Abilify) 2.5 mg DAILY PO Last administered on 03/17/17t 08:39; Start 03/17/17 at 09:00 Active Scripts Active Reported [place] 7.5-325 Tablet (Hydrocodone Bit/Acetaminophen) 1 Each Tablet 1 Tab PO QID Metanx Capsule (Levomefolate/B6/B12/Algal Oil) 1 Each Capsule 1 Cap PO BID Lorazepam 0.5 Mg Tablet 0.5 Mg PO PRN TID PRN Abilify (Aripiprazole) 2 Mg Tablet 2 Mg PO DAILY Celexa (Citalopram Hydrobromide) 20 Mg Tablet 20 Mg PO DAILY Neurontin (Gabapentin) 600 Mg Tablet 600 Mg PO TID [Arnicare Gel] 1 Jasmyne TOP PRN BID PRN Donepezil Hcl 10 Mg Tablet 10 Mg PO DAILY Levemir Flextouch (Insulin Detemir) 100 Unit/1 Ml Insuln.pen 25 Unit SQ QHS Klor-Con M20 (Potassium Chloride) 20 Meq Tab.er.prt 40 Meq PO DAILY Novolog Flexpen (Insulin Aspart) 100 Unit/1 Ml Insuln.pen 0-5 Unit SQ TIDWMEALS Nystatin 15 Gm Powder 1 Jasmyne TP PRN BID PRN Pyridoxine Hcl 100 Mg Tablet 100 Mg PO DAILY Norvasc (Amlodipine Besylate) 5 Mg Tablet 5 Mg PO DAILY Atorvastatin Calcium 40 Mg Tablet 40 Mg PO QHS Plavix (Clopidogrel Bisulfate) 75 Mg Tablet 75 Mg PO DAILY Refresh Lacri-Lube Ointment (Mineral Oil/Petrolatum,White) 3.5 Gm Oint...g. 1 Jasmyne OU BID Vitamin B-12 (Cyanocobalamin (Vitamin B-12)) 1,000 Mcg Tablet 1,000 Mcg PO DAILY Vitamin D3 (Cholecalciferol (Vitamin D3)) 1,000 Unit Tablet 5,000 Unit PO DAILY Diagnosis: Problems: (1) Anxiety disorder (2) Impulse control disorder (3) Major depressive disorder, recurrent episode (4) Dementia in Alzheimer's disease with depression (5) Dementia in Alzheimer's disease with delusions ALESSANDRA IBRAHIM MD Mar 17, 2017 22:21
[2017-03-18 06:10] VITALS: BP 124/73
[2017-03-18 06:40] LABS: BASO # 0.1 x10^3/uL (0.0-0.2); BASO % 1 % (0-3); EOS # 0.2 x10^3/uL (0.0-0.7); EOS % 4 % (0-3); HEMOGLOBIN 11.9 g/dL (12.0-15.5); LYMPH # 1.8 x10^3/uL (1.0-4.8); LYMPH % 31 % (24-48); MEAN CORPUSCULAR HEMOGLOBIN 32 pg (25-35); MEAN CORPUSCULAR HGB CONC 34 g/dL (31-37); MEAN CORPUSCULAR VOLUME 95 fL (79-100); MONO # 0.7 x10^3/uL (0.0-1.1); MONO % 12 % (0-9); NEUT % 52 % (31-73); PLATELET COUNT 239 x10^3/uL (140-400); RED BLOOD COUNT 3.67 x10^6/uL (3.50-5.40); RED CELL DISTRIBUTION WIDTH 12.8 % (11.5-14.5); WHITE BLOOD COUNT 5.8 x10^3/uL (4.0-11.0)
[2017-03-18 07:00] LABS: ALBUMIN 3.1 g/dL (3.4-5.0); ALBUMIN/GLOBULIN RATIO 0.9 (1.0-1.7); ALK PHOS 112 U/L (46-116); ALT (SGPT) 21 U/L (14-59); ANION GAP 4 (6-14); AST (SGOT) 17 U/L (15-37); BLOOD UREA NITROGEN 12 mg/dL (7-20); BUN/CREATININE RATIO 12 (6-20); CALCIUM 9.4 mg/dL (8.5-10.1); CARBON DIOXIDE 33 mmol/L (21-32); CHLORIDE 105 mmol/L (98-107); GFR 53.6; GLUCOSE 141 mg/dL (70-99); POTASSIUM 3.9 mmol/L (3.5-5.1); SODIUM 142 mmol/L (136-145); TOTAL BILIRUBIN 0.3 mg/dL (0.2-1.0); TOTAL PROTEIN 6.6 g/dL (6.4-8.2)
[2017-03-18 07:07] LABS: VAL ACID 18 mcg/mL (50-100)
[2017-03-18] MEDS: INSULIN ASPART 300 UNITS/3 ML INSULN.PEN SQ SCH ×3 (08:00→17:00)
[2017-03-18] MEDS: GABAPENTIN 300 MG CAPSULE. PO SCH ×3 (08:58→20:07)
[2017-03-18] MEDS: CYANOCOBALAMIN (VITAMIN B-12) 1,000 MCG TABLET. PO SCH (08:58)
[2017-03-18] MEDS: DIVALPROEX 125 MG CAP.SPRINK PO SCH ×2 (08:58→14:13)
[2017-03-18] MEDS: CETIRIZINE HCL 10 MG TABLET PO SCH (08:58)
[2017-03-18] MEDS: CLOPIDOGREL BISULFATE 75 MG TABLET PO SCH (08:58)
[2017-03-18] MEDS: DONEPEZIL HCL 10 MG TABLET PO SCH (08:58)
[2017-03-18] MEDS: VITAMIN B COMPLEX CAPSULE. PO SCH ×2 (08:58→20:07)
[2017-03-18] MEDS: MAGNESIUM OXIDE 400 MG TABLET PO SCH ×3 (08:58→20:07)
[2017-03-18] MEDS: CHOLECALCIFEROL (VITAMIN D3) 1,000 UNIT TABLET PO SCH (08:58)
[2017-03-18] MEDS: DULoxetine HCL 20 MG CAPSULE.DR PO SCH (08:58)
[2017-03-18] MEDS: ARIPiprazole 5 MG TABLET PO SCH (08:58)
[2017-03-18] MEDS: SODIUM BICARBONATE 650 MG TABLET PO SCH ×2 (08:59→20:10)
[2017-03-18] MEDS: PYRIDOXINE 100 MG TABLET. PO SCH (08:59)
[2017-03-18] MEDS: POLYVINYL ALCOHOL 1.4% OPHTH SOLUTION 15ML BOTTLE. OU SCH ×2 (08:59→20:10)
[2017-03-18] MEDS: FLUTICASONE 50MCG/NASAL SPRAY 16GM BOTTLE. NS SCH (08:59)
[2017-03-18] MEDS: HYDROcodone/APAP 7.5/325MG 1 TAB TABLET PO SCH ×4 (09:02→20:08)
--- NOTE | 2017-03-18 12:43 | PN ---
DATE: 03/16/2017 This is a late entry for 03/16/2017 and covers the elements not covered in my initial note of 03/16/2017. SUBJECTIVE: I met with the patient in the evening of 03/16/2017 and staffed at a treatment team meeting with the entire team the morning of 03/16/2017. The patient's daughter, Bee and son, Joshua attended the treatment team meeting. Appetite 75%, sleeping 7-8 hours, compliant with medications, crushed in pudding. REVIEW OF SYSTEMS: Ambulation somewhat impaired with a walker. No CV, , pulmonary, eye, ENT system symptoms on review. MENTAL STATUS EXAM: Tearful at times, gets sad, alert, oriented to place and situation. Speech has some latency, coherent. Abstraction fair, computation impaired, language function intact, attention span short. Mood and affect still somewhat dysphoric, anxious. At the treatment team meeting we discussed the patient's desire to go down to [place] to her son till he sells his business and comes back to [place], pros and cons of this addressed this with the patient as well individually. She is quite keen to do this. IMPRESSION: Unchanged from initial note. PLAN: Continue current psychotropics, Abilify was reduced, Cymbalta increased, maintain Aricept, Ativan p.r.n., Neurontin, Depakote, valproic acid level is subtherapeutic, but clinically adequate given overall improvement in her mood. Reviewed drug interactions. Risk/benefit ratio favors no further change. ALESSANDRA IBRAHIM MD DR: CARLA/faith JOB#: [id number] / [id number]
[2017-03-18 17:14] VITALS: BP 158/61
[2017-03-18] MEDS: ATORVASTATIN CALCIUM 20 MG TABLET PO SCH (20:08)
[2017-03-18] MEDS: INSULIN DETEMIR 300 UNITS/3 ML INSULN.PEN. SQ SCH (20:15)
--- NOTE | 2017-03-18 23:06 | PDOC ---
Exam Jam Demential Exam: Jam Note: Please also refer to the separate dictated note~for this date of service dictated separately.~Patient seen individually. Discussed the patient with Nursing staff reviewed the chart.~Reviewed interim history and current functioning. Reviewed vital signs,~Labs/ Radiology~and current medications noted below. Continue current treatment with the changes noted in the dictated addendum note Assessment: Vital Signs: Vital Signs Date Time Temp Pulse Resp B/P (MAP) Pulse Ox O2 Delivery O2 Flow Rate FiO2 03/18/17 17:14 97.7 74 18 158/61 (93) 96 03/17/17 21:00 Room Air I&O Intake and Output 03/19/17 07:00 Intake Total 1440 ml Balance 1440 ml Intake Oral 1440 ml Labs: Laboratory Tests Test 03/18/17 05:43 03/18/17 06:27 03/18/17 07:26 03/18/17 11:55 Glucose (Fingerstick) 71 mg/dL (70-99) 82 mg/dL (70-99) 118 mg/dL (70-99) H White Blood Count 5.8 x10^3/uL (4.0-11.0) Red Blood Count 3.67 x10^6/uL (3.50-5.40) Hemoglobin 11.9 g/dL (12.0-15.5) L Hematocrit 35.0 % (36.0-47.0) L Mean Corpuscular Volume 95 fL (79-100) Mean Corpuscular Hemoglobin 32 pg (25-35) Mean Corpuscular Hemoglobin Concent 34 g/dL (31-37) Red Cell Distribution Width 12.8 % (11.5-14.5) Platelet Count 239 x10^3/uL (140-400) Neutrophils (%) (Auto) 52 % (31-73) Lymphocytes (%) (Auto) 31 % (24-48) Monocytes (%) (Auto) 12 % (0-9) H Eosinophils (%) (Auto) 4 % (0-3) H Basophils (%) (Auto) 1 % (0-3) Neutrophils # (Auto) 3.0 x10^3uL (1.8-7.7) Lymphocytes # (Auto) 1.8 x10^3/uL (1.0-4.8) Monocytes # (Auto) 0.7 x10^3/uL (0.0-1.1) Eosinophils # (Auto) 0.2 x10^3/uL (0.0-0.7) Basophils # (Auto) 0.1 x10^3/uL (0.0-0.2) Sodium Level 142 mmol/L (136-145) Potassium Level 3.9 mmol/L (3.5-5.1) Chloride Level 105 mmol/L (98-107) Carbon Dioxide Level 33 mmol/L (21-32) H Anion Gap 4 (6-14) L Blood Urea Nitrogen 12 mg/dL (7-20) Creatinine 1.0 mg/dL (0.6-1.0) Estimated GFR (Cockcroft-Gault) 53.6 BUN/Creatinine Ratio 12 (6-20) Glucose Level 141 mg/dL (70-99) H Calcium Level 9.4 mg/dL (8.5-10.1) Magnesium Level 2.0 mg/dL (1.8-2.4) Total Bilirubin 0.3 mg/dL (0.2-1.0) Aspartate Amino Transferase (AST) 17 U/L (15-37) Alanine Aminotransferase (ALT) 21 U/L (14-59) Alkaline Phosphatase 112 U/L (46-116) Total Protein 6.6 g/dL (6.4-8.2) Albumin 3.1 g/dL (3.4-5.0) L Albumin/Globulin Ratio 0.9 (1.0-1.7) L Valproic Acid Level 18 mcg/mL (50-100) L Valproic Acid Last Dose Date 03/17/17 Valproic Acid Last Dose Time 2100 Test 03/18/17 17:15 03/18/17 19:05 Glucose (Fingerstick) 124 mg/dL (70-99) H 219 mg/dL (70-99) H Current Medications: Meds: Current Medications Acetaminophen (Tylenol) 650 mg PRN Q6HRS PRN PO PAIN / TEMP Last administered on 03/15/17 05:17; Start 03/02/17 at 21:30 Multi-Ingredient Ointment (Analgesic [place]) 1 jasmyne PRN QID PRN TP MUSCLE PAIN Last administered on 03/02/17 22:32; Start 03/02/17 at 21:30 Al Hydroxide/Mg Hydroxide (Mylanta Plus Xs) 15 ml PRN AFTMEALHC PRN PO DYSPEPSIA; Start 03/02/17 at 21:30 Magnesium Hydroxide (Milk Of Magnesia) 2,400 mg PRN QHS PRN PO CONSTIPATION; Start 03/02/17 at 21:30 Aripiprazole (Abilify) 2 mg DAILY PO Last administered on 03/05/17 07:36; Start 03/03/17 at 09:00; Stop 03/05/17 at 12:09; Status DC Citalopram Hydrobromide (CeleXA) 20 mg DAILY PO Last administered on 03/04/17 09:30; Start 03/03/17 at 09:00; Stop 03/04/17 at 12:11; Status DC Donepezil HCl (Aricept) 10 mg DAILY PO Last administered on 03/18/17 08:58; Start 03/03/17 at 09:00 Lorazepam (Ativan) 0.5 mg PRN TID PRN PO ANXIETY / AGITATION; Start 03/02/17 at 21:30 Amlodipine Besylate (Norvasc) 5 mg DAILY PO Last administered on 03/11/17 08: 16; Start 03/03/17 at 09:00; Stop 03/11/17 at 23:24; Status DC Vitamin D (Vitamin D3) 5,000 unit DAILY PO Last administered on 03/18/17 08:58 ; Start 03/03/17 at 09:00 Clopidogrel Bisulfate (Plavix) 75 mg DAILY PO Last administered on 03/18/17 08 :58; Start 03/03/17 at 09:00 Cyanocobalamin (Vitamin B-12) 1,000 mcg DAILY PO Last administered on 08:58; Start 03/03/17 at 09:00 Acetaminophen/ Hydrocodone Bitart (Lortab 7.5/325) 1 tab QID PO Last administered on 03/18/17 20:08; Start 03/02/17 at 22:00 Insulin Detemir (Levemir) 25 units QHS SQ Last administered on 03/18/17 20:15 ; Start 03/02/17 at 22:00 Nystatin (Nystop) 1 jasmyne PRN BID PRN TP REDNESS Last administered on 03/03/17 08:04; Start 03/02/17 at 21:45 Pyridoxine HCl (Vitamin B-6) 100 mg DAILY PO Last administered on 03/18/17 08: 59; Start 03/03/17 at 09:00 Atorvastatin Calcium (Lipitor) 40 mg QHS PO Last administered on 03/18/17 20: 08; Start 03/02/17 at 22:00 Gabapentin (Neurontin) 600 mg TID PO Last administered on 03/18/17 20:07; Start 03/02/17 at 22:00 Vitamin B Complex 1 cap BID PO Last administered on 03/18/17 20:07; Start at 09:00 Multi-Ingred Cream/Lotion/Oil/ Oint (Artificial Tears Eye Oint) 1 jasmyne BID OU Last administered on 03/06/17 19:42; Start 03/02/17 at 22:00; Stop 03/06/17 at 21:23; Status DC Insulin Aspart (NovoLOG) 0-5 UNITS TIDWMEALS SQ Last administered on 03/17/17 12:28; Start 03/03/17 at 08:00 Dextrose 12.5 gm PRN Q15MIN PRN IV SEE COMMENTS; Start 03/02/17 at 21:45 Magnesium Oxide (Magnesium Oxide) 400 mg TID PO Last administered on 03/18/17 20:07; Start 03/03/17 at 21:00 Sodium Bicarbonate 650 mg BID PO Last administered on 03/18/17 20:10; Start at 21:00 Duloxetine HCl (Cymbalta) 30 mg DAILY PO Last administered on 03/13/17 09:25; Start 03/05/17 at 09:00; Stop 03/13/17 at 18:38; Status DC Aripiprazole (Abilify) 5 mg DAILY PO Last administered on 03/16/17 08:30; Start 03/06/17 at 09:00; Stop 03/16/17 at 14:38; Status DC Artificial Tears (Artificial Tears) 1 drop BID OU Last administered on 20:10; Start 03/07/17 at 09:00 Fluticasone Propionate (Flonase) 2 spray DAILY NS Last administered on 08:59; Start 03/08/17 at 13:15 Glucose (Insta-Glucose) 15 gm STK-MED ONCE .ROUTE Last administered on 12:11; Start 03/09/17 at 11:38; Stop 03/09/17 at 11:39; Status DC Divalproex Sodium (Depakote Sprinkles) 125 mg BID92 PO Last administered on 14:13; Start 03/09/17 at 14:00 Cetirizine HCl (ZyrTEC) 10 mg DAILY PO Last administered on 03/18/17 08:58; Start 03/14/17 at 09:00 Duloxetine HCl (Cymbalta) 40 mg DAILY PO Last administered on 03/18/17 08:58; Start 03/14/17 at 09:00 Aripiprazole (Abilify) 2.5 mg DAILY PO Last administered on 03/18/17 08:58; Start 03/17/17 at 09:00 Active Scripts Active Reported [place] 7.5-325 Tablet (Hydrocodone Bit/Acetaminophen) 1 Each Tablet 1 Tab PO QID Metanx Capsule (Levomefolate/B6/B12/Algal Oil) 1 Each Capsule 1 Cap PO BID Lorazepam 0.5 Mg Tablet 0.5 Mg PO PRN TID PRN Abilify (Aripiprazole) 2 Mg Tablet 2 Mg PO DAILY Celexa (Citalopram Hydrobromide) 20 Mg Tablet 20 Mg PO DAILY Neurontin (Gabapentin) 600 Mg Tablet 600 Mg PO TID [Arnicare Gel] 1 Jasmyne TOP PRN BID PRN Donepezil Hcl 10 Mg Tablet 10 Mg PO DAILY Levemir Flextouch (Insulin Detemir) 100 Unit/1 Ml Insuln.pen 25 Unit SQ QHS Klor-Con M20 (Potassium Chloride) 20 Meq Tab.er.prt 40 Meq PO DAILY Novolog Flexpen (Insulin Aspart) 100 Unit/1 Ml Insuln.pen 0-5 Unit SQ TIDWMEALS Nystatin 15 Gm Powder 1 Jasmyne TP PRN BID PRN Pyridoxine Hcl 100 Mg Tablet 100 Mg PO DAILY Norvasc (Amlodipine Besylate) 5 Mg Tablet 5 Mg PO DAILY Atorvastatin Calcium 40 Mg Tablet 40 Mg PO QHS Plavix (Clopidogrel Bisulfate) 75 Mg Tablet 75 Mg PO DAILY Refresh Lacri-Lube Ointment (Mineral Oil/Petrolatum,White) 3.5 Gm Oint...g. 1 Jasmyne OU BID Vitamin B-12 (Cyanocobalamin (Vitamin B-12)) 1,000 Mcg Tablet 1,000 Mcg PO DAILY Vitamin D3 (Cholecalciferol (Vitamin D3)) 1,000 Unit Tablet 5,000 Unit PO DAILY Diagnosis: Problems: (1) Anxiety disorder (2) Impulse control disorder (3) Major depressive disorder, recurrent episode (4) Dementia in Alzheimer's disease with depression (5) Dementia in Alzheimer's disease with delusions ALESSANDRA IBRAHIM MD Mar 18, 2017 23:06
--- NOTE | 2017-03-19 01:08 | PN ---
DATE: 03/17/2017 PSYCHIATRIC PROGRESS NOTE This is a late entry for 03/17/2017, covers elements not covered in my initial note of 03/17/2017. SUBJECTIVE: I met with the patient the evening of 03/17/2017. Overall, per nursing report, the patient has done better, has short-term memory deficits, but quite excited about going to [place], [place] to her son, Joshua and her [id number]. Able to talk about this at some length individually as I met with her the evening of 03/17/2017. REVIEW OF SYSTEMS: Ambulation impaired with walker. No CV, , pulmonary, eye, ENT system symptoms on review. MENTAL STATUS EXAM: Oriented to herself and situation. Speech coherent, pleasant, smiling. Abstraction fair, computation impaired, language function intact, short term memory is impaired. No suicidal or homicidal ideation. LABORATORY DATA: Reviewed. IMPRESSION: Unchanged from initial note. PLAN: Continue current psychotropics. Reviewed drug interactions. Risk/benefit ratio favors no further change. ALESSANDRA IBRAHIM MD DR: CARLA/faith JOB#: [id number] / [id number]
[2017-03-19 06:11] VITALS: BP 106/50
[2017-03-19 06:15] VITALS: BP 125/55
[2017-03-19] MEDS: ACETAMINOPHEN 325 MG TABLET PO PRN (06:28)
[2017-03-19] MEDS: INSULIN ASPART 300 UNITS/3 ML INSULN.PEN SQ SCH ×3 (07:59→17:06)
[2017-03-19] MEDS: FLUTICASONE 50MCG/NASAL SPRAY 16GM BOTTLE. NS SCH ×2 (09:00→09:44)
[2017-03-19] MEDS: VITAMIN B COMPLEX CAPSULE. PO SCH ×3 (09:00→19:50)
[2017-03-19] MEDS: CHOLECALCIFEROL (VITAMIN D3) 1,000 UNIT TABLET PO SCH ×2 (09:00→09:38)
[2017-03-19] MEDS: POLYVINYL ALCOHOL 1.4% OPHTH SOLUTION 15ML BOTTLE. OU SCH ×3 (09:00→19:50)
[2017-03-19] MEDS: DONEPEZIL HCL 10 MG TABLET PO SCH (09:38)
[2017-03-19] MEDS: CETIRIZINE HCL 10 MG TABLET PO SCH (09:38)
[2017-03-19] MEDS: ARIPiprazole 5 MG TABLET PO SCH (09:38)
[2017-03-19] MEDS: CLOPIDOGREL BISULFATE 75 MG TABLET PO SCH (09:38)
[2017-03-19] MEDS: DULoxetine HCL 20 MG CAPSULE.DR PO SCH (09:38)
[2017-03-19] MEDS: DIVALPROEX 125 MG CAP.SPRINK PO SCH ×2 (09:38→13:47)
[2017-03-19] MEDS: CYANOCOBALAMIN (VITAMIN B-12) 1,000 MCG TABLET. PO SCH (09:39)
[2017-03-19] MEDS: GABAPENTIN 300 MG CAPSULE. PO SCH ×3 (09:39→19:49)
[2017-03-19] MEDS: PYRIDOXINE 100 MG TABLET. PO SCH (09:39)
[2017-03-19] MEDS: MAGNESIUM OXIDE 400 MG TABLET PO SCH ×3 (09:39→19:49)
[2017-03-19] MEDS: SODIUM BICARBONATE 650 MG TABLET PO SCH ×2 (09:39→19:50)
[2017-03-19] MEDS: HYDROcodone/APAP 7.5/325MG 1 TAB TABLET PO SCH ×4 (09:43→19:49)
[2017-03-19 16:40] VITALS: BP 144/63
[2017-03-19] MEDS: ATORVASTATIN CALCIUM 20 MG TABLET PO SCH (19:49)
[2017-03-19] MEDS: INSULIN DETEMIR 300 UNITS/3 ML INSULN.PEN. SQ SCH (19:54)
--- NOTE | 2017-03-19 21:19 | PDOC ---
Exam Jam Demential Exam: Jam Note: Please also refer to the separate dictated note~for this date of service dictated separately.~Patient seen individually. Discussed the patient with Nursing staff reviewed the chart.~Reviewed interim history and current functioning. Reviewed vital signs,~Labs/ Radiology~and current medications noted below. Continue current treatment with the changes noted in the dictated addendum note Assessment: Vital Signs: Vital Signs Date Time Temp Pulse Resp B/P (MAP) Pulse Ox O2 Delivery O2 Flow Rate FiO2 03/19/17 20:49 Room Air 03/19/17 19:06 18 98 03/19/17 16:40 98.7 73 144/63 (90) I&O Intake and Output 03/20/17 07:00 Intake Total 480 ml Balance 480 ml Intake Oral 480 ml Labs: Laboratory Tests Test 03/19/17 07:22 03/19/17 12:00 03/19/17 16:44 03/19/17 19:04 Glucose (Fingerstick) 82 mg/dL (70-99) 124 mg/dL (70-99) H 155 mg/dL (70-99) H 192 mg/dL (70-99) H Current Medications: Meds: Current Medications Acetaminophen (Tylenol) 650 mg PRN Q6HRS PRN PO PAIN / TEMP Last administered on 03/19/17 06:28; Start 03/02/17 at 21:30 Multi-Ingredient Ointment (Analgesic [place]) 1 jasmyne PRN QID PRN TP MUSCLE PAIN Last administered on 03/02/17 22:32; Start 03/02/17 at 21:30 Al Hydroxide/Mg Hydroxide (Mylanta Plus Xs) 15 ml PRN AFTMEALHC PRN PO DYSPEPSIA; Start 03/02/17 at 21:30 Magnesium Hydroxide (Milk Of Magnesia) 2,400 mg PRN QHS PRN PO CONSTIPATION; Start 03/02/17 at 21:30 Aripiprazole (Abilify) 2 mg DAILY PO Last administered on 03/05/17 07:36; Start 03/03/17 at 09:00; Stop 03/05/17 at 12:09; Status DC Citalopram Hydrobromide (CeleXA) 20 mg DAILY PO Last administered on 03/04/17 09:30; Start 03/03/17 at 09:00; Stop 03/04/17 at 12:11; Status DC Donepezil HCl (Aricept) 10 mg DAILY PO Last administered on 03/19/17 09:38; Start 03/03/17 at 09:00 Lorazepam (Ativan) 0.5 mg PRN TID PRN PO ANXIETY / AGITATION; Start 03/02/17 at 21:30 Amlodipine Besylate (Norvasc) 5 mg DAILY PO Last administered on 03/11/17 08: 16; Start 03/03/17 at 09:00; Stop 03/11/17 at 23:24; Status DC Vitamin D (Vitamin D3) 5,000 unit DAILY PO Last administered on 03/18/17 08:58 ; Start 03/03/17 at 09:00 Clopidogrel Bisulfate (Plavix) 75 mg DAILY PO Last administered on 03/19/17 09 :38; Start 03/03/17 at 09:00 Cyanocobalamin (Vitamin B-12) 1,000 mcg DAILY PO Last administered on 09:39; Start 03/03/17 at 09:00 Acetaminophen/ Hydrocodone Bitart (Lortab 7.5/325) 1 tab QID PO Last administered on 03/19/17 19:49; Start 03/02/17 at 22:00 Insulin Detemir (Levemir) 25 units QHS SQ Last administered on 03/19/17 19:54 ; Start 03/02/17 at 22:00 Nystatin (Nystop) 1 jasmyne PRN BID PRN TP REDNESS Last administered on 03/03/17 08:04; Start 03/02/17 at 21:45 Pyridoxine HCl (Vitamin B-6) 100 mg DAILY PO Last administered on 03/19/17 09: 39; Start 03/03/17 at 09:00 Atorvastatin Calcium (Lipitor) 40 mg QHS PO Last administered on 03/19/17 19: 49; Start 03/02/17 at 22:00 Gabapentin (Neurontin) 600 mg TID PO Last administered on 03/19/17 19:49; Start 03/02/17 at 22:00 Vitamin B Complex 1 cap BID PO Last administered on 03/19/17 19:50; Start at 09:00 Multi-Ingred Cream/Lotion/Oil/ Oint (Artificial Tears Eye Oint) 1 jasmyne BID OU Last administered on 03/06/17 19:42; Start 03/02/17 at 22:00; Stop 03/06/17 at 21:23; Status DC Insulin Aspart (NovoLOG) 0-5 UNITS TIDWMEALS SQ Last administered on 03/19/17 17:06; Start 03/03/17 at 08:00 Dextrose 12.5 gm PRN Q15MIN PRN IV SEE COMMENTS; Start 03/02/17 at 21:45 Magnesium Oxide (Magnesium Oxide) 400 mg TID PO Last administered on 03/19/17 19:49; Start 03/03/17 at 21:00 Sodium Bicarbonate 650 mg BID PO Last administered on 03/19/17 19:50; Start at 21:00 Duloxetine HCl (Cymbalta) 30 mg DAILY PO Last administered on 03/13/17 09:25; Start 03/05/17 at 09:00; Stop 03/13/17 at 18:38; Status DC Aripiprazole (Abilify) 5 mg DAILY PO Last administered on 03/16/17 08:30; Start 03/06/17 at 09:00; Stop 03/16/17 at 14:38; Status DC Artificial Tears (Artificial Tears) 1 drop BID OU Last administered on 19:50; Start 03/07/17 at 09:00 Fluticasone Propionate (Flonase) 2 spray DAILY NS Last administered on 08:59; Start 03/08/17 at 13:15 Glucose (Insta-Glucose) 15 gm STK-MED ONCE .ROUTE Last administered on 12:11; Start 03/09/17 at 11:38; Stop 03/09/17 at 11:39; Status DC Divalproex Sodium (Depakote Sprinkles) 125 mg BID92 PO Last administered on 13:47; Start 03/09/17 at 14:00 Cetirizine HCl (ZyrTEC) 10 mg DAILY PO Last administered on 03/19/17 09:38; Start 03/14/17 at 09:00 Duloxetine HCl (Cymbalta) 40 mg DAILY PO Last administered on 03/19/17 09:38; Start 03/14/17 at 09:00 Aripiprazole (Abilify) 2.5 mg DAILY PO Last administered on 03/19/17 09:38; Start 03/17/17 at 09:00 Active Scripts Active Reported [place] 7.5-325 Tablet (Hydrocodone Bit/Acetaminophen) 1 Each Tablet 1 Tab PO QID Metanx Capsule (Levomefolate/B6/B12/Algal Oil) 1 Each Capsule 1 Cap PO BID Lorazepam 0.5 Mg Tablet 0.5 Mg PO PRN TID PRN Abilify (Aripiprazole) 2 Mg Tablet 2 Mg PO DAILY Celexa (Citalopram Hydrobromide) 20 Mg Tablet 20 Mg PO DAILY Neurontin (Gabapentin) 600 Mg Tablet 600 Mg PO TID [Arnicare Gel] 1 Jasmyne TOP PRN BID PRN Donepezil Hcl 10 Mg Tablet 10 Mg PO DAILY Levemir Flextouch (Insulin Detemir) 100 Unit/1 Ml Insuln.pen 25 Unit SQ QHS Klor-Con M20 (Potassium Chloride) 20 Meq Tab.er.prt 40 Meq PO DAILY Novolog Flexpen (Insulin Aspart) 100 Unit/1 Ml Insuln.pen 0-5 Unit SQ TIDWMEALS Nystatin 15 Gm Powder 1 Jasmyne TP PRN BID PRN Pyridoxine Hcl 100 Mg Tablet 100 Mg PO DAILY Norvasc (Amlodipine Besylate) 5 Mg Tablet 5 Mg PO DAILY Atorvastatin Calcium 40 Mg Tablet 40 Mg PO QHS Plavix (Clopidogrel Bisulfate) 75 Mg Tablet 75 Mg PO DAILY Refresh Lacri-Lube Ointment (Mineral Oil/Petrolatum,White) 3.5 Gm Oint...g. 1 Jasmyne OU BID Vitamin B-12 (Cyanocobalamin (Vitamin B-12)) 1,000 Mcg Tablet 1,000 Mcg PO DAILY Vitamin D3 (Cholecalciferol (Vitamin D3)) 1,000 Unit Tablet 5,000 Unit PO DAILY Diagnosis: Problems: (1) Anxiety disorder (2) Impulse control disorder (3) Major depressive disorder, recurrent episode (4) Dementia in Alzheimer's disease with depression (5) Dementia in Alzheimer's disease with delusions ALESSANDRA IBRAHIM MD Mar 19, 2017 21:19
--- NOTE | 2017-03-20 04:49 | PN ---
DATE: 03/18/2017 This late entry 03/18/2017 covers elements not covered in my initial note of 03/18/2017. SUBJECTIVE: I met with the patient in the evening of 03/18/2017. Overall, the patient has done better. Mood is more stable, less irritable. Her daughter and son-in-law visited and the patient recounted this to me as I met with her. She is still excited about going down to [place], [place] to her son, Joshua. We processed this. REVIEW OF SYSTEMS: Ambulation impaired with a walker. No CV, , pulmonary, eye, ENT system symptoms on review. MENTAL STATUS EXAM: Oriented to herself and situation. Speech coherent, abstraction fair, computation impaired, attention span short. Mood and affect is improved. Memory is impaired. IMPRESSION: Unchanged from initial note. PLAN: Continue current psychotropics, review drug interactions, risk/benefit ratio favors no further change. ALESSANDRA IBRAHIM MD DR: CARLA/faith JOB#: [id number] / [id number]
[2017-03-20 05:59] VITALS: BP 167/67
[2017-03-20] MEDS: INSULIN ASPART 300 UNITS/3 ML INSULN.PEN SQ SCH ×3 (07:58→16:59)
[2017-03-20] MEDS: DULoxetine HCL 20 MG CAPSULE.DR PO SCH (08:11)
[2017-03-20] MEDS: CHOLECALCIFEROL (VITAMIN D3) 1,000 UNIT TABLET PO SCH (08:11)
[2017-03-20] MEDS: CYANOCOBALAMIN (VITAMIN B-12) 1,000 MCG TABLET. PO SCH (08:11)
[2017-03-20] MEDS: DONEPEZIL HCL 10 MG TABLET PO SCH (08:11)
[2017-03-20] MEDS: GABAPENTIN 300 MG CAPSULE. PO SCH ×3 (08:11→20:15)
[2017-03-20] MEDS: SODIUM BICARBONATE 650 MG TABLET PO SCH ×2 (08:12→20:14)
[2017-03-20] MEDS: CLOPIDOGREL BISULFATE 75 MG TABLET PO SCH (08:12)
[2017-03-20] MEDS: DIVALPROEX 125 MG CAP.SPRINK PO SCH ×2 (08:12→14:01)
[2017-03-20] MEDS: MAGNESIUM OXIDE 400 MG TABLET PO SCH ×3 (08:12→20:15)
[2017-03-20] MEDS: CETIRIZINE HCL 10 MG TABLET PO SCH (08:12)
[2017-03-20] MEDS: VITAMIN B COMPLEX CAPSULE. PO SCH ×2 (08:12→20:14)
[2017-03-20] MEDS: ARIPiprazole 5 MG TABLET PO SCH (08:14)
[2017-03-20] MEDS: HYDROcodone/APAP 7.5/325MG 1 TAB TABLET PO SCH ×4 (08:15→20:15)
[2017-03-20] MEDS: FLUTICASONE 50MCG/NASAL SPRAY 16GM BOTTLE. NS SCH ×2 (08:15→09:00)
[2017-03-20] MEDS: PYRIDOXINE 100 MG TABLET. PO SCH (08:15)
[2017-03-20] MEDS: POLYVINYL ALCOHOL 1.4% OPHTH SOLUTION 15ML BOTTLE. OU SCH ×2 (08:15→20:15)
[2017-03-20 16:51] VITALS: BP 128/71
[2017-03-20] MEDS: ATORVASTATIN CALCIUM 20 MG TABLET PO SCH (20:14)
[2017-03-20] MEDS: INSULIN DETEMIR 300 UNITS/3 ML INSULN.PEN. SQ SCH (20:20)
--- NOTE | 2017-03-20 21:12 | PDOC ---
Exam Jam Demential Exam: Jam Note: Please also refer to the separate dictated note~for this date of service dictated separately.~Patient seen individually. Discussed the patient with Nursing staff reviewed the chart.~Reviewed interim history and current functioning. Reviewed vital signs,~Labs/ Radiology~and current medications noted below. Continue current treatment with the changes noted in the dictated addendum note Assessment: Vital Signs: Vital Signs Date Time Temp Pulse Resp B/P (MAP) Pulse Ox O2 Delivery O2 Flow Rate FiO2 03/20/17 20:15 18 97 Room Air 03/20/17 16:51 97.4 66 128/71 (90) I&O Intake and Output 03/21/17 07:00 Intake Total 720 ml Balance 720 ml Intake Oral 720 ml Labs: Laboratory Tests Test 03/20/17 07:10 03/20/17 11:27 03/20/17 16:38 03/20/17 19:07 Glucose (Fingerstick) 101 mg/dL (70-99) H 106 mg/dL (70-99) H 104 mg/dL (70-99) H 173 mg/dL (70-99) H Current Medications: Meds: Current Medications Acetaminophen (Tylenol) 650 mg PRN Q6HRS PRN PO PAIN / TEMP Last administered on 03/19/17 06:28; Start 03/02/17 at 21:30 Multi-Ingredient Ointment (Analgesic [place]) 1 jasmyne PRN QID PRN TP MUSCLE PAIN Last administered on 03/02/17 22:32; Start 03/02/17 at 21:30 Al Hydroxide/Mg Hydroxide (Mylanta Plus Xs) 15 ml PRN AFTMEALHC PRN PO DYSPEPSIA; Start 03/02/17 at 21:30 Magnesium Hydroxide (Milk Of Magnesia) 2,400 mg PRN QHS PRN PO CONSTIPATION; Start 03/02/17 at 21:30 Aripiprazole (Abilify) 2 mg DAILY PO Last administered on 03/05/17 07:36; Start 03/03/17 at 09:00; Stop 03/05/17 at 12:09; Status DC Citalopram Hydrobromide (CeleXA) 20 mg DAILY PO Last administered on 03/04/17 09:30; Start 03/03/17 at 09:00; Stop 03/04/17 at 12:11; Status DC Donepezil HCl (Aricept) 10 mg DAILY PO Last administered on 03/20/17 08:11; Start 03/03/17 at 09:00 Lorazepam (Ativan) 0.5 mg PRN TID PRN PO ANXIETY / AGITATION; Start 03/02/17 at 21:30 Amlodipine Besylate (Norvasc) 5 mg DAILY PO Last administered on 03/11/17 08: 16; Start 03/03/17 at 09:00; Stop 03/11/17 at 23:24; Status DC Vitamin D (Vitamin D3) 5,000 unit DAILY PO Last administered on 03/20/17 08:11 ; Start 03/03/17 at 09:00 Clopidogrel Bisulfate (Plavix) 75 mg DAILY PO Last administered on 03/20/17 08 :12; Start 03/03/17 at 09:00 Cyanocobalamin (Vitamin B-12) 1,000 mcg DAILY PO Last administered on 08:11; Start 03/03/17 at 09:00 Acetaminophen/ Hydrocodone Bitart (Lortab 7.5/325) 1 tab QID PO Last administered on 03/20/17 20:15; Start 03/02/17 at 22:00 Insulin Detemir (Levemir) 25 units QHS SQ Last administered on 03/20/17 20:20 ; Start 03/02/17 at 22:00 Nystatin (Nystop) 1 jasmyne PRN BID PRN TP REDNESS Last administered on 03/03/17 08:04; Start 03/02/17 at 21:45 Pyridoxine HCl (Vitamin B-6) 100 mg DAILY PO Last administered on 03/20/17 08: 15; Start 03/03/17 at 09:00 Atorvastatin Calcium (Lipitor) 40 mg QHS PO Last administered on 03/20/17 20: 14; Start 03/02/17 at 22:00 Gabapentin (Neurontin) 600 mg TID PO Last administered on 03/20/17 20:15; Start 03/02/17 at 22:00 Vitamin B Complex 1 cap BID PO Last administered on 03/20/17 20:14; Start at 09:00 Multi-Ingred Cream/Lotion/Oil/ Oint (Artificial Tears Eye Oint) 1 jasmyne BID OU Last administered on 03/06/17 19:42; Start 03/02/17 at 22:00; Stop 03/06/17 at 21:23; Status DC Insulin Aspart (NovoLOG) 0-5 UNITS TIDWMEALS SQ Last administered on 03/19/17 17:06; Start 03/03/17 at 08:00 Dextrose 12.5 gm PRN Q15MIN PRN IV SEE COMMENTS; Start 03/02/17 at 21:45 Magnesium Oxide (Magnesium Oxide) 400 mg TID PO Last administered on 03/20/17 20:15; Start 03/03/17 at 21:00 Sodium Bicarbonate 650 mg BID PO Last administered on 03/20/17 20:14; Start at 21:00 Duloxetine HCl (Cymbalta) 30 mg DAILY PO Last administered on 03/13/17 09:25; Start 03/05/17 at 09:00; Stop 03/13/17 at 18:38; Status DC Aripiprazole (Abilify) 5 mg DAILY PO Last administered on 03/16/17 08:30; Start 03/06/17 at 09:00; Stop 03/16/17 at 14:38; Status DC Artificial Tears (Artificial Tears) 1 drop BID OU Last administered on 20:15; Start 03/07/17 at 09:00 Fluticasone Propionate (Flonase) 2 spray DAILY NS Last administered on 08:59; Start 03/08/17 at 13:15 Glucose (Insta-Glucose) 15 gm STK-MED ONCE .ROUTE Last administered on 12:11; Start 03/09/17 at 11:38; Stop 03/09/17 at 11:39; Status DC Divalproex Sodium (Depakote Sprinkles) 125 mg BID92 PO Last administered on 14:01; Start 03/09/17 at 14:00 Cetirizine HCl (ZyrTEC) 10 mg DAILY PO Last administered on 03/20/17 08:12; Start 03/14/17 at 09:00 Duloxetine HCl (Cymbalta) 40 mg DAILY PO Last administered on 03/20/17 08:11; Start 03/14/17 at 09:00 Aripiprazole (Abilify) 2.5 mg DAILY PO Last administered on 03/20/17 08:14; Start 03/17/17 at 09:00 Active Scripts Active Reported [place] 7.5-325 Tablet (Hydrocodone Bit/Acetaminophen) 1 Each Tablet 1 Tab PO QID Metanx Capsule (Levomefolate/B6/B12/Algal Oil) 1 Each Capsule 1 Cap PO BID Lorazepam 0.5 Mg Tablet 0.5 Mg PO PRN TID PRN Abilify (Aripiprazole) 2 Mg Tablet 2 Mg PO DAILY Celexa (Citalopram Hydrobromide) 20 Mg Tablet 20 Mg PO DAILY Neurontin (Gabapentin) 600 Mg Tablet 600 Mg PO TID [Arnicare Gel] 1 Jasmyne TOP PRN BID PRN Donepezil Hcl 10 Mg Tablet 10 Mg PO DAILY Levemir Flextouch (Insulin Detemir) 100 Unit/1 Ml Insuln.pen 25 Unit SQ QHS Klor-Con M20 (Potassium Chloride) 20 Meq Tab.er.prt 40 Meq PO DAILY Novolog Flexpen (Insulin Aspart) 100 Unit/1 Ml Insuln.pen 0-5 Unit SQ TIDWMEALS Nystatin 15 Gm Powder 1 Jasmyne TP PRN BID PRN Pyridoxine Hcl 100 Mg Tablet 100 Mg PO DAILY Norvasc (Amlodipine Besylate) 5 Mg Tablet 5 Mg PO DAILY Atorvastatin Calcium 40 Mg Tablet 40 Mg PO QHS Plavix (Clopidogrel Bisulfate) 75 Mg Tablet 75 Mg PO DAILY Refresh Lacri-Lube Ointment (Mineral Oil/Petrolatum,White) 3.5 Gm Oint...g. 1 Jasmyne OU BID Vitamin B-12 (Cyanocobalamin (Vitamin B-12)) 1,000 Mcg Tablet 1,000 Mcg PO DAILY Vitamin D3 (Cholecalciferol (Vitamin D3)) 1,000 Unit Tablet 5,000 Unit PO DAILY Diagnosis: Problems: (1) Anxiety disorder (2) Impulse control disorder (3) Major depressive disorder, recurrent episode (4) Dementia in Alzheimer's disease with depression (5) Dementia in Alzheimer's disease with delusions ALESSANDRA IBRAHIM MD Mar 20, 2017 21:12
--- NOTE | 2017-03-21 01:11 | PN ---
DATE: 03/19/2017 This late entry 03/19/2017 covers elements not covered in my initial note of 03/19/2017. SUBJECTIVE: I met with the patient in the evening of 03/19/2017. The patient has been pleasant, somewhat withdrawn at times, trying to assist other demented patients on the unit. REVIEW OF SYSTEMS: Ambulation impaired with a walker. No CV, , pulmonary, eye, ENT system symptoms on review. MENTAL STATUS EXAM: Oriented to herself and situation. Speech has some latency, often responses monosyllabic. Abstraction fair, computation impaired, language function intact. Mood and affect showing some improvement, though she gets a little anxious, says staff does not help her with her feet. I processed this with her. LABORATORY DATA: Reviewed. IMPRESSION: Unchanged from initial note. PLAN: Continue current psychotropics mentioned in my initial note. Reviewed drug interactions. Risk/benefit ratio favors no further change. ALESSANDRA IBRAHIM MD DR: ACRLA/faith JOB#: [id number] / [id number]
[2017-03-21 05:56] VITALS: BP 125/71
[2017-03-21] MEDS: INSULIN ASPART 300 UNITS/3 ML INSULN.PEN SQ SCH ×3 (07:47→17:07)
[2017-03-21] MEDS: FLUTICASONE 50MCG/NASAL SPRAY 16GM BOTTLE. NS SCH (09:00)
[2017-03-21] MEDS: CHOLECALCIFEROL (VITAMIN D3) 1,000 UNIT TABLET PO SCH (09:58)
[2017-03-21] MEDS: GABAPENTIN 300 MG CAPSULE. PO SCH ×3 (09:58→19:31)
[2017-03-21] MEDS: ARIPiprazole 5 MG TABLET PO SCH (09:58)
[2017-03-21] MEDS: DIVALPROEX 125 MG CAP.SPRINK PO SCH ×2 (09:59→13:53)
[2017-03-21] MEDS: CYANOCOBALAMIN (VITAMIN B-12) 1,000 MCG TABLET. PO SCH (09:59)
[2017-03-21] MEDS: VITAMIN B COMPLEX CAPSULE. PO SCH ×2 (09:59→19:31)
[2017-03-21] MEDS: DONEPEZIL HCL 10 MG TABLET PO SCH (09:59)
[2017-03-21] MEDS: DULoxetine HCL 20 MG CAPSULE.DR PO SCH (10:00)
[2017-03-21] MEDS: CLOPIDOGREL BISULFATE 75 MG TABLET PO SCH (10:00)
[2017-03-21] MEDS: CETIRIZINE HCL 10 MG TABLET PO SCH (10:00)
[2017-03-21] MEDS: MAGNESIUM OXIDE 400 MG TABLET PO SCH ×3 (10:00→19:31)
[2017-03-21] MEDS: HYDROcodone/APAP 7.5/325MG 1 TAB TABLET PO SCH ×4 (10:01→19:46)
[2017-03-21] MEDS: SODIUM BICARBONATE 650 MG TABLET PO SCH ×2 (10:01→19:31)
[2017-03-21] MEDS: PYRIDOXINE 100 MG TABLET. PO SCH (10:01)
[2017-03-21] MEDS: POLYVINYL ALCOHOL 1.4% OPHTH SOLUTION 15ML BOTTLE. OU SCH ×2 (10:50→19:49)
[2017-03-21 15:59] VITALS: BP 142/73
[2017-03-21] MEDS: ATORVASTATIN CALCIUM 20 MG TABLET PO SCH (19:31)
[2017-03-21] MEDS: INSULIN DETEMIR 300 UNITS/3 ML INSULN.PEN. SQ SCH (19:33)
--- NOTE | 2017-03-21 20:55 | PDOC ---
Exam Jam Demential Exam: Jam Note: Please also refer to the separate dictated note~for this date of service dictated separately.~Patient seen individually. Discussed the patient with Nursing staff reviewed the chart.~Reviewed interim history and current functioning. Reviewed vital signs,~Labs/ Radiology~and current medications noted below. Continue current treatment with the changes noted in the dictated addendum note Assessment: Vital Signs: Vital Signs Date Time Temp Pulse Resp B/P (MAP) Pulse Ox O2 Delivery O2 Flow Rate FiO2 03/21/17 19:06 18 95 Room Air 03/21/17 15:59 97.1 76 142/73 (96) I&O Intake and Output 03/22/17 07:00 Intake Total 840 ml Balance 840 ml Intake Oral 840 ml # Bowel Movements 1 Labs: Laboratory Tests Test 03/21/17 07:27 03/21/17 11:39 03/21/17 16:37 03/21/17 19:08 Glucose (Fingerstick) 85 mg/dL (70-99) 170 mg/dL (70-99) H 170 mg/dL (70-99) H 204 mg/dL (70-99) H Current Medications: Meds: Current Medications Acetaminophen (Tylenol) 650 mg PRN Q6HRS PRN PO PAIN / TEMP Last administered on 03/19/17 06:28; Start 03/02/17 at 21:30 Multi-Ingredient Ointment (Analgesic [place]) 1 jasmyne PRN QID PRN TP MUSCLE PAIN Last administered on 03/02/17 22:32; Start 03/02/17 at 21:30 Al Hydroxide/Mg Hydroxide (Mylanta Plus Xs) 15 ml PRN AFTMEALHC PRN PO DYSPEPSIA; Start 03/02/17 at 21:30 Magnesium Hydroxide (Milk Of Magnesia) 2,400 mg PRN QHS PRN PO CONSTIPATION; Start 03/02/17 at 21:30 Aripiprazole (Abilify) 2 mg DAILY PO Last administered on 03/05/17 07:36; Start 03/03/17 at 09:00; Stop 03/05/17 at 12:09; Status DC Citalopram Hydrobromide (CeleXA) 20 mg DAILY PO Last administered on 03/04/17 09:30; Start 03/03/17 at 09:00; Stop 03/04/17 at 12:11; Status DC Donepezil HCl (Aricept) 10 mg DAILY PO Last administered on 03/21/17 09:59; Start 03/03/17 at 09:00 Lorazepam (Ativan) 0.5 mg PRN TID PRN PO ANXIETY / AGITATION; Start 03/02/17 at 21:30 Amlodipine Besylate (Norvasc) 5 mg DAILY PO Last administered on 03/11/17 08: 16; Start 03/03/17 at 09:00; Stop 03/11/17 at 23:24; Status DC Vitamin D (Vitamin D3) 5,000 unit DAILY PO Last administered on 03/21/17 09:58 ; Start 03/03/17 at 09:00 Clopidogrel Bisulfate (Plavix) 75 mg DAILY PO Last administered on 03/21/17 10 :00; Start 03/03/17 at 09:00 Cyanocobalamin (Vitamin B-12) 1,000 mcg DAILY PO Last administered on 09:59; Start 03/03/17 at 09:00 Acetaminophen/ Hydrocodone Bitart (Lortab 7.5/325) 1 tab QID PO Last administered on 03/21/17 19:46; Start 03/02/17 at 22:00 Insulin Detemir (Levemir) 25 units QHS SQ Last administered on 03/21/17 19:33 ; Start 03/02/17 at 22:00 Nystatin (Nystop) 1 jasmyne PRN BID PRN TP REDNESS Last administered on 03/03/17 08:04; Start 03/02/17 at 21:45 Pyridoxine HCl (Vitamin B-6) 100 mg DAILY PO Last administered on 03/21/17 10: 01; Start 03/03/17 at 09:00 Atorvastatin Calcium (Lipitor) 40 mg QHS PO Last administered on 03/21/17 19: 31; Start 03/02/17 at 22:00 Gabapentin (Neurontin) 600 mg TID PO Last administered on 03/21/17 19:31; Start 03/02/17 at 22:00 Vitamin B Complex 1 cap BID PO Last administered on 03/21/17 19:31; Start at 09:00 Multi-Ingred Cream/Lotion/Oil/ Oint (Artificial Tears Eye Oint) 1 jasmyne BID OU Last administered on 03/06/17 19:42; Start 03/02/17 at 22:00; Stop 03/06/17 at 21:23; Status DC Insulin Aspart (NovoLOG) 0-5 UNITS TIDWMEALS SQ Last administered on 03/21/17 17:07; Start 03/03/17 at 08:00 Dextrose 12.5 gm PRN Q15MIN PRN IV SEE COMMENTS; Start 03/02/17 at 21:45 Magnesium Oxide (Magnesium Oxide) 400 mg TID PO Last administered on 03/21/17 19:31; Start 03/03/17 at 21:00 Sodium Bicarbonate 650 mg BID PO Last administered on 03/21/17 19:31; Start at 21:00 Duloxetine HCl (Cymbalta) 30 mg DAILY PO Last administered on 03/13/17 09:25; Start 03/05/17 at 09:00; Stop 03/13/17 at 18:38; Status DC Aripiprazole (Abilify) 5 mg DAILY PO Last administered on 03/16/17 08:30; Start 03/06/17 at 09:00; Stop 03/16/17 at 14:38; Status DC Artificial Tears (Artificial Tears) 1 drop BID OU Last administered on 19:49; Start 03/07/17 at 09:00 Fluticasone Propionate (Flonase) 2 spray DAILY NS Last administered on 08:59; Start 03/08/17 at 13:15 Glucose (Insta-Glucose) 15 gm STK-MED ONCE .ROUTE Last administered on 12:11; Start 03/09/17 at 11:38; Stop 03/09/17 at 11:39; Status DC Divalproex Sodium (Depakote Sprinkles) 125 mg BID92 PO Last administered on 13:53; Start 03/09/17 at 14:00 Cetirizine HCl (ZyrTEC) 10 mg DAILY PO Last administered on 03/21/17 10:00; Start 03/14/17 at 09:00 Duloxetine HCl (Cymbalta) 40 mg DAILY PO Last administered on 03/21/17 10:00; Start 03/14/17 at 09:00 Aripiprazole (Abilify) 2.5 mg DAILY PO Last administered on 03/21/17 09:58; Start 03/17/17 at 09:00 Active Scripts Active Reported [place] 7.5-325 Tablet (Hydrocodone Bit/Acetaminophen) 1 Each Tablet 1 Tab PO QID Metanx Capsule (Levomefolate/B6/B12/Algal Oil) 1 Each Capsule 1 Cap PO BID Lorazepam 0.5 Mg Tablet 0.5 Mg PO PRN TID PRN Abilify (Aripiprazole) 2 Mg Tablet 2 Mg PO DAILY Celexa (Citalopram Hydrobromide) 20 Mg Tablet 20 Mg PO DAILY Neurontin (Gabapentin) 600 Mg Tablet 600 Mg PO TID [Arnicare Gel] 1 Jasmyne TOP PRN BID PRN Donepezil Hcl 10 Mg Tablet 10 Mg PO DAILY Levemir Flextouch (Insulin Detemir) 100 Unit/1 Ml Insuln.pen 25 Unit SQ QHS Klor-Con M20 (Potassium Chloride) 20 Meq Tab.er.prt 40 Meq PO DAILY Novolog Flexpen (Insulin Aspart) 100 Unit/1 Ml Insuln.pen 0-5 Unit SQ TIDWMEALS Nystatin 15 Gm Powder 1 Jasmyne TP PRN BID PRN Pyridoxine Hcl 100 Mg Tablet 100 Mg PO DAILY Norvasc (Amlodipine Besylate) 5 Mg Tablet 5 Mg PO DAILY Atorvastatin Calcium 40 Mg Tablet 40 Mg PO QHS Plavix (Clopidogrel Bisulfate) 75 Mg Tablet 75 Mg PO DAILY Refresh Lacri-Lube Ointment (Mineral Oil/Petrolatum,White) 3.5 Gm Oint...g. 1 Jasmyne OU BID Vitamin B-12 (Cyanocobalamin (Vitamin B-12)) 1,000 Mcg Tablet 1,000 Mcg PO DAILY Vitamin D3 (Cholecalciferol (Vitamin D3)) 1,000 Unit Tablet 5,000 Unit PO DAILY Diagnosis: Problems: (1) Anxiety disorder (2) Impulse control disorder (3) Major depressive disorder, recurrent episode (4) Dementia in Alzheimer's disease with depression (5) Dementia in Alzheimer's disease with delusions ALESSANDRA IBRAHIM MD Mar 21, 2017 20:55
--- NOTE | 2017-03-21 23:02 | PN ---
DATE: 03/20/2017 PSYCHIATRIC PROGRESS NOTE This late entry 03/20/2017 covers elements not covered in my initial note of 03/20/2017. SUBJECTIVE: I met with the patient in the evening of 03/20/2017. Overall, the patient does have short-term memory deficits; but is otherwise calm, compliant, frequently gets back to her room after meals, looking forward to going to [place], [place] to be with her son, Joshua and her [id number]. REVIEW OF SYSTEMS: Ambulation impaired, with walker. No CV, , pulmonary, eye, ENT system symptoms on review. MENTAL STATUS EXAM: Oriented to herself and situation. Speech: Moderate latency, coherent. Abstraction fair, computation impaired, language function intact, attention span short. Mood and affect showing improvement. LABORATORIES: Reviewed, discussed with social service staff about transition plans. IMPRESSION: Unchanged from initial note. PLAN: Continue current psychotropics mentioned in my initial note. Tentative transition home with son later this week. MAN Elizabeth IBRAHIM MD DR: CARLA/faith JOB#: [id number] / [id number]
[2017-03-22 06:30] VITALS: BP 123/72
[2017-03-22] MEDS: INSULIN ASPART 300 UNITS/3 ML INSULN.PEN SQ SCH ×3 (07:20→17:00)
[2017-03-22] MEDS: CLOPIDOGREL BISULFATE 75 MG TABLET PO SCH (08:54)
[2017-03-22] MEDS: CYANOCOBALAMIN (VITAMIN B-12) 1,000 MCG TABLET. PO SCH (08:54)
[2017-03-22] MEDS: CHOLECALCIFEROL (VITAMIN D3) 1,000 UNIT TABLET PO SCH (08:54)
[2017-03-22] MEDS: DULoxetine HCL 20 MG CAPSULE.DR PO SCH (08:54)
[2017-03-22] MEDS: VITAMIN B COMPLEX CAPSULE. PO SCH ×2 (08:54→20:09)
[2017-03-22] MEDS: PYRIDOXINE 100 MG TABLET. PO SCH (08:54)
[2017-03-22] MEDS: MAGNESIUM OXIDE 400 MG TABLET PO SCH ×3 (08:54→20:09)
[2017-03-22] MEDS: SODIUM BICARBONATE 650 MG TABLET PO SCH ×2 (08:54→20:10)
[2017-03-22] MEDS: CETIRIZINE HCL 10 MG TABLET PO SCH (08:54)
[2017-03-22] MEDS: GABAPENTIN 300 MG CAPSULE. PO SCH ×3 (08:54→20:09)
[2017-03-22] MEDS: DONEPEZIL HCL 10 MG TABLET PO SCH (08:54)
[2017-03-22] MEDS: ARIPiprazole 5 MG TABLET PO SCH (08:55)
[2017-03-22] MEDS: DIVALPROEX 125 MG CAP.SPRINK PO SCH ×2 (08:55→14:28)
[2017-03-22] MEDS: HYDROcodone/APAP 7.5/325MG 1 TAB TABLET PO SCH ×4 (08:57→20:29)
[2017-03-22] MEDS: FLUTICASONE 50MCG/NASAL SPRAY 16GM BOTTLE. NS SCH (09:00)
[2017-03-22] MEDS: POLYVINYL ALCOHOL 1.4% OPHTH SOLUTION 15ML BOTTLE. OU SCH ×2 (09:00→20:12)
[2017-03-22 16:45] VITALS: BP 120/73
[2017-03-22] MEDS: ATORVASTATIN CALCIUM 20 MG TABLET PO SCH (20:09)
[2017-03-22] MEDS ORDERED: INSULIN DETEMIR 300 UNITS/3 ML INSULN.PEN. SQ SCH (21:00)
--- NOTE | 2017-03-22 21:05 | PDOC ---
Exam Jam Demential Exam: Jam Note: Please also refer to the separate dictated note~for this date of service dictated separately.~Patient seen individually. Discussed the patient with Nursing staff reviewed the chart.~Reviewed interim history and current functioning. Reviewed vital signs,~Labs/ Radiology~and current medications noted below. Continue current treatment with the changes noted in the dictated addendum note Assessment: Vital Signs: Vital Signs Date Time Temp Pulse Resp B/P (MAP) Pulse Ox O2 Delivery O2 Flow Rate FiO2 03/22/17 20:29 20 97 Room Air 03/22/17 16:45 97.6 68 120/73 (89) I&O Intake and Output 03/23/17 07:00 Intake Total 480 ml Balance 480 ml Intake Oral 480 ml Labs: Laboratory Tests Test 03/22/17 07:11 03/22/17 09:34 Glucose (Fingerstick) 60 mg/dL (70-99) L 78 mg/dL (70-99) Current Medications: Meds: Current Medications Acetaminophen (Tylenol) 650 mg PRN Q6HRS PRN PO PAIN / TEMP Last administered on 03/19/17 06:28; Start 03/02/17 at 21:30 Multi-Ingredient Ointment (Analgesic [place]) 1 jasmyne PRN QID PRN TP MUSCLE PAIN Last administered on 03/02/17 22:32; Start 03/02/17 at 21:30 Al Hydroxide/Mg Hydroxide (Mylanta Plus Xs) 15 ml PRN AFTMEALHC PRN PO DYSPEPSIA; Start 03/02/17 at 21:30 Magnesium Hydroxide (Milk Of Magnesia) 2,400 mg PRN QHS PRN PO CONSTIPATION; Start 03/02/17 at 21:30 Aripiprazole (Abilify) 2 mg DAILY PO Last administered on 03/05/17 07:36; Start 03/03/17 at 09:00; Stop 03/05/17 at 12:09; Status DC Citalopram Hydrobromide (CeleXA) 20 mg DAILY PO Last administered on 03/04/17 09:30; Start 03/03/17 at 09:00; Stop 03/04/17 at 12:11; Status DC Donepezil HCl (Aricept) 10 mg DAILY PO Last administered on 03/22/17 08:54; Start 03/03/17 at 09:00 Lorazepam (Ativan) 0.5 mg PRN TID PRN PO ANXIETY / AGITATION; Start 03/02/17 at 21:30 Amlodipine Besylate (Norvasc) 5 mg DAILY PO Last administered on 03/11/17 08: 16; Start 03/03/17 at 09:00; Stop 03/11/17 at 23:24; Status DC Vitamin D (Vitamin D3) 5,000 unit DAILY PO Last administered on 03/22/17 08:54 ; Start 03/03/17 at 09:00 Clopidogrel Bisulfate (Plavix) 75 mg DAILY PO Last administered on 03/22/17 08 :54; Start 03/03/17 at 09:00 Cyanocobalamin (Vitamin B-12) 1,000 mcg DAILY PO Last administered on 08:54; Start 03/03/17 at 09:00; Stop 03/22/17 at 12:34; Status DC Acetaminophen/ Hydrocodone Bitart (Lortab 7.5/325) 1 tab QID PO Last administered on 03/22/17 20:29; Start 03/02/17 at 22:00 Insulin Detemir (Levemir) 25 units QHS SQ Last administered on 03/21/17 19:33 ; Start 03/02/17 at 22:00; Stop 03/22/17 at 12:34; Status DC Nystatin (Nystop) 1 jasmyne PRN BID PRN TP REDNESS Last administered on 03/03/17 08:04; Start 03/02/17 at 21:45 Pyridoxine HCl (Vitamin B-6) 100 mg DAILY PO Last administered on 03/22/17 08: 54; Start 03/03/17 at 09:00 Atorvastatin Calcium (Lipitor) 40 mg QHS PO Last administered on 03/22/17 20: 09; Start 03/02/17 at 22:00 Gabapentin (Neurontin) 600 mg TID PO Last administered on 03/22/17 20:09; Start 03/02/17 at 22:00 Vitamin B Complex 1 cap BID PO Last administered on 03/22/17 20:09; Start at 09:00 Multi-Ingred Cream/Lotion/Oil/ Oint (Artificial Tears Eye Oint) 1 jasmyne BID OU Last administered on 03/06/17 19:42; Start 03/02/17 at 22:00; Stop 03/06/17 at 21:23; Status DC Insulin Aspart (NovoLOG) 0-5 UNITS TIDWMEALS SQ Last administered on 03/21/17 17:07; Start 03/03/17 at 08:00 Dextrose 12.5 gm PRN Q15MIN PRN IV SEE COMMENTS; Start 03/02/17 at 21:45 Magnesium Oxide (Magnesium Oxide) 400 mg TID PO Last administered on 03/22/17 20:09; Start 03/03/17 at 21:00 Sodium Bicarbonate 650 mg BID PO Last administered on 03/22/17 20:10; Start at 21:00 Duloxetine HCl (Cymbalta) 30 mg DAILY PO Last administered on 03/13/17 09:25; Start 03/05/17 at 09:00; Stop 03/13/17 at 18:38; Status DC Aripiprazole (Abilify) 5 mg DAILY PO Last administered on 03/16/17 08:30; Start 03/06/17 at 09:00; Stop 03/16/17 at 14:38; Status DC Artificial Tears (Artificial Tears) 1 drop BID OU Last administered on 20:12; Start 03/07/17 at 09:00 Fluticasone Propionate (Flonase) 2 spray DAILY NS Last administered on 08:59; Start 03/08/17 at 13:15 Glucose (Insta-Glucose) 15 gm STK-MED ONCE .ROUTE Last administered on 12:11; Start 03/09/17 at 11:38; Stop 03/09/17 at 11:39; Status DC Divalproex Sodium (Depakote Sprinkles) 125 mg BID92 PO Last administered on 14:28; Start 03/09/17 at 14:00 Cetirizine HCl (ZyrTEC) 10 mg DAILY PO Last administered on 03/22/17 08:54; Start 03/14/17 at 09:00 Duloxetine HCl (Cymbalta) 40 mg DAILY PO Last administered on 03/22/17 08:54; Start 03/14/17 at 09:00 Aripiprazole (Abilify) 2.5 mg DAILY PO Last administered on 03/22/17 08:55; Start 03/17/17 at 09:00 Cyanocobalamin (Vitamin B-12) 500 mcg DAILY PO ; Start 03/23/17 at 09:00 Insulin Detemir (Levemir) 15 units QHS SQ Last administered on 03/22/17 20:12 ; Start 03/22/17 at 21:00 Active Scripts Active Reported [place] 7.5-325 Tablet (Hydrocodone Bit/Acetaminophen) 1 Each Tablet 1 Tab PO QID Metanx Capsule (Levomefolate/B6/B12/Algal Oil) 1 Each Capsule 1 Cap PO BID Lorazepam 0.5 Mg Tablet 0.5 Mg PO PRN TID PRN Abilify (Aripiprazole) 2 Mg Tablet 2 Mg PO DAILY Celexa (Citalopram Hydrobromide) 20 Mg Tablet 20 Mg PO DAILY Neurontin (Gabapentin) 600 Mg Tablet 600 Mg PO TID [Arnicare Gel] 1 Jasmyne TOP PRN BID PRN Donepezil Hcl 10 Mg Tablet 10 Mg PO DAILY Levemir Flextouch (Insulin Detemir) 100 Unit/1 Ml Insuln.pen 25 Unit SQ QHS Klor-Con M20 (Potassium Chloride) 20 Meq Tab.er.prt 40 Meq PO DAILY Novolog Flexpen (Insulin Aspart) 100 Unit/1 Ml Insuln.pen 0-5 Unit SQ TIDWMEALS Nystatin 15 Gm Powder 1 Jasmyne TP PRN BID PRN Pyridoxine Hcl 100 Mg Tablet 100 Mg PO DAILY Norvasc (Amlodipine Besylate) 5 Mg Tablet 5 Mg PO DAILY Atorvastatin Calcium 40 Mg Tablet 40 Mg PO QHS Plavix (Clopidogrel Bisulfate) 75 Mg Tablet 75 Mg PO DAILY Refresh Lacri-Lube Ointment (Mineral Oil/Petrolatum,White) 3.5 Gm Oint...g. 1 Jasmyne OU BID Vitamin B-12 (Cyanocobalamin (Vitamin B-12)) 1,000 Mcg Tablet 1,000 Mcg PO DAILY Vitamin D3 (Cholecalciferol (Vitamin D3)) 1,000 Unit Tablet 5,000 Unit PO DAILY Diagnosis: Problems: (1) Anxiety disorder (2) Impulse control disorder (3) Major depressive disorder, recurrent episode (4) Dementia in Alzheimer's disease with depression (5) Dementia in Alzheimer's disease with delusions ALESSANDRA IBRAHIM MD Mar 22, 2017 21:05
--- NOTE | 2017-03-22 23:26 | PN ---
DATE: 03/21/2017 PSYCHIATRIC PROGRESS NOTE This late entry 03/21/2017 covers elements not covered in my initial note of 03/21/2017. SUBJECTIVE: I met with the patient the evening of 03/21/2017. Per nursing report, the patient has been doing better on 03/21/2017. She still gets very obsessive and fixated on having the lotion placed on her feet in the morning in a certain way and a certain ritualistic tendency about this. I have asked the nursing staff to pass it on to her son and [id number] to help facilitate this when she moves in with them in [place]. REVIEW OF SYSTEMS: Ambulation impaired, with walker. No CV, , pulmonary, eye, ENT system symptoms on review. MENTAL STATUS EXAM: Oriented to herself and situation. Speech is coherent, has some latency. Abstraction fair, computation impaired, language function intact, attention span short. Mood and affect is improved. LABORATORIES: Reviewed. IMPRESSION: Unchanged from initial note. PLAN: Continue current psychotropics, will not increase the Depakote despite level being subtherapeutic at 18, since clinically she is doing well enough. Risk/benefit ratio favors no further change. Drug interactions were reviewed. ALESSANDRA IBRAHIM MD DR: CARLA/faith JOB#: [id number] / [id number]
[2017-03-23] MEDS ORDERED: CETI10TA16 PO (04:16)
[2017-03-23] MEDS ORDERED: DIVA500T2 PO (04:17)
[2017-03-23] MEDS ORDERED: DULO20CA50 PO (04:18)
[2017-03-23] MEDS ORDERED: FLUT16SP21 NS (04:19)
[2017-03-23] MEDS ORDERED: MAGN400T3 PO (04:20)
[2017-03-23] MEDS ORDERED: SODI650T PO (04:21)
[2017-03-23] MEDS ORDERED: VITA1TAB3 PO (04:21)
[2017-03-23] MEDS ORDERED: METH29OI TP (04:23)
[2017-03-23] MEDS ORDERED: POLY15DR7 OP (04:24)
[2017-03-23] MEDS ORDERED: MAGN2400 PO (04:25)
[2017-03-23] MEDS ORDERED: MAG30ORA PO (04:26)
[2017-03-23] MEDS ORDERED: ACET325T9 PO (04:28)
[2017-03-23 06:42] VITALS: BP 144/67
[2017-03-23] MEDS: INSULIN ASPART 300 UNITS/3 ML INSULN.PEN SQ SCH ×2 (08:00→12:09)
[2017-03-23] MEDS ORDERED: CYANOCOBALAMIN (VITAMIN B-12) 1,000 MCG TABLET. PO SCH (09:00)
[2017-03-23] MEDS: VITAMIN B COMPLEX CAPSULE. PO SCH (09:02)
[2017-03-23] MEDS: GABAPENTIN 300 MG CAPSULE. PO SCH ×2 (09:02→13:35)
[2017-03-23] MEDS: CLOPIDOGREL BISULFATE 75 MG TABLET PO SCH (09:02)
[2017-03-23] MEDS: DULoxetine HCL 20 MG CAPSULE.DR PO SCH (09:02)
[2017-03-23] MEDS: ARIPiprazole 5 MG TABLET PO SCH (09:02)
[2017-03-23] MEDS: SODIUM BICARBONATE 650 MG TABLET PO SCH (09:02)
[2017-03-23] MEDS: FLUTICASONE 50MCG/NASAL SPRAY 16GM BOTTLE. NS SCH (09:02)
[2017-03-23] MEDS: POLYVINYL ALCOHOL 1.4% OPHTH SOLUTION 15ML BOTTLE. OU SCH (09:02)
[2017-03-23] MEDS: MAGNESIUM OXIDE 400 MG TABLET PO SCH ×2 (09:03→13:35)
[2017-03-23] MEDS: CETIRIZINE HCL 10 MG TABLET PO SCH (09:03)
[2017-03-23] MEDS: PYRIDOXINE 100 MG TABLET. PO SCH (09:03)
[2017-03-23] MEDS: CHOLECALCIFEROL (VITAMIN D3) 1,000 UNIT TABLET PO SCH (09:03)
[2017-03-23] MEDS: DIVALPROEX 125 MG CAP.SPRINK PO SCH ×2 (09:03→13:36)
[2017-03-23] MEDS: DONEPEZIL HCL 10 MG TABLET PO SCH (09:03)
[2017-03-23] MEDS: HYDROcodone/APAP 7.5/325MG 1 TAB TABLET PO SCH ×2 (09:06→13:36)
--- NOTE | 2017-03-23 21:16 | PDOC ---
Exam Jam Demential Exam: Jam Note: Please also refer to the separate dictated note~for this date of service dictated separately.~Patient seen individually. Discussed the patient with Nursing staff reviewed the chart.~Reviewed interim history and current functioning. Reviewed vital signs,~Labs/ Radiology~and current medications noted below. Continue current treatment with the changes noted in the dictated addendum note Assessment: Vital Signs: Vital Signs Date Time Temp Pulse Resp B/P (MAP) Pulse Ox O2 Delivery O2 Flow Rate FiO2 03/23/17 14:55 18 100 Room Air 03/23/17 06:42 97.6 68 144/67 (92) I&O Intake and Output 03/24/17 07:00 Intake Total 780 ml Balance 780 ml Intake Oral 780 ml Labs: Laboratory Tests Test 03/23/17 07:16 03/23/17 11:28 Glucose (Fingerstick) 95 mg/dL (70-99) 179 mg/dL (70-99) H Current Medications: Meds: Current Medications Acetaminophen (Tylenol) 650 mg PRN Q6HRS PRN PO PAIN / TEMP Last administered on 03/19/17 06:28; Start 03/02/17 at 21:30; Stop 03/23/17 at 16:15; Status DC Multi-Ingredient Ointment (Analgesic [place]) 1 jasmyne PRN QID PRN TP MUSCLE PAIN Last administered on 03/02/17 22:32; Start 03/02/17 at 21:30; Stop 03/23/17 at 16:15; Status DC Al Hydroxide/Mg Hydroxide (Mylanta Plus Xs) 15 ml PRN AFTMEALHC PRN PO DYSPEPSIA; Start 03/02/17 at 21:30; Stop 03/23/17 at 16:15; Status DC Magnesium Hydroxide (Milk Of Magnesia) 2,400 mg PRN QHS PRN PO CONSTIPATION; Start 03/02/17 at 21:30; Stop 03/23/17 at 16:15; Status DC Aripiprazole (Abilify) 2 mg DAILY PO Last administered on 03/05/17 07:36; Start 03/03/17 at 09:00; Stop 03/05/17 at 12:09; Status DC Citalopram Hydrobromide (CeleXA) 20 mg DAILY PO Last administered on 03/04/17 09:30; Start 03/03/17 at 09:00; Stop 03/04/17 at 12:11; Status DC Donepezil HCl (Aricept) 10 mg DAILY PO Last administered on 03/23/17 09:03; Start 03/03/17 at 09:00; Stop 03/23/17 at 16:15; Status DC Lorazepam (Ativan) 0.5 mg PRN TID PRN PO ANXIETY / AGITATION; Start 03/02/17 at 21:30; Stop 03/23/17 at 16:15; Status DC Amlodipine Besylate (Norvasc) 5 mg DAILY PO Last administered on 03/11/17 08: 16; Start 03/03/17 at 09:00; Stop 03/11/17 at 23:24; Status DC Vitamin D (Vitamin D3) 5,000 unit DAILY PO Last administered on 03/23/17 09:03 ; Start 03/03/17 at 09:00; Stop 03/23/17 at 16:15; Status DC Clopidogrel Bisulfate (Plavix) 75 mg DAILY PO Last administered on 03/23/17 09 :02; Start 03/03/17 at 09:00; Stop 03/23/17 at 16:15; Status DC Cyanocobalamin (Vitamin B-12) 1,000 mcg DAILY PO Last administered on 08:54; Start 03/03/17 at 09:00; Stop 03/22/17 at 12:34; Status DC Acetaminophen/ Hydrocodone Bitart (Lortab 7.5/325) 1 tab QID PO Last administered on 03/23/17 13:36; Start 03/02/17 at 22:00; Stop 03/23/17 at 16:15 ; Status DC Insulin Detemir (Levemir) 25 units QHS SQ Last administered on 03/21/17 19:33 ; Start 03/02/17 at 22:00; Stop 03/22/17 at 12:34; Status DC Nystatin (Nystop) 1 jasmyne PRN BID PRN TP REDNESS Last administered on 03/03/17 08:04; Start 03/02/17 at 21:45; Stop 03/23/17 at 16:15; Status DC Pyridoxine HCl (Vitamin B-6) 100 mg DAILY PO Last administered on 03/23/17 09: 03; Start 03/03/17 at 09:00; Stop 03/23/17 at 16:15; Status DC Atorvastatin Calcium (Lipitor) 40 mg QHS PO Last administered on 03/22/17 20: 09; Start 03/02/17 at 22:00; Stop 03/23/17 at 16:15; Status DC Gabapentin (Neurontin) 600 mg TID PO Last administered on 03/23/17 13:35; Start 03/02/17 at 22:00; Stop 03/23/17 at 16:15; Status DC Vitamin B Complex 1 cap BID PO Last administered on 03/23/17 09:02; Start at 09:00; Stop 03/23/17 at 16:15; Status DC Multi-Ingred Cream/Lotion/Oil/ Oint (Artificial Tears Eye Oint) 1 jasmyne BID OU Last administered on 03/06/17 19:42; Start 03/02/17 at 22:00; Stop 03/06/17 at 21:23; Status DC Insulin Aspart (NovoLOG) 0-5 UNITS TIDWMEALS SQ Last administered on 03/23/17 12:09; Start 03/03/17 at 08:00; Stop 03/23/17 at 16:15; Status DC Dextrose 12.5 gm PRN Q15MIN PRN IV SEE COMMENTS; Start 03/02/17 at 21:45; Stop 03/23/17 at 16:15; Status DC Magnesium Oxide (Magnesium Oxide) 400 mg TID PO Last administered on 03/23/17 13:35; Start 03/03/17 at 21:00; Stop 03/23/17 at 16:15; Status DC Sodium Bicarbonate 650 mg BID PO Last administered on 03/23/17 09:02; Start at 21:00; Stop 03/23/17 at 16:15; Status DC Duloxetine HCl (Cymbalta) 30 mg DAILY PO Last administered on 03/13/17 09:25; Start 03/05/17 at 09:00; Stop 03/13/17 at 18:38; Status DC Aripiprazole (Abilify) 5 mg DAILY PO Last administered on 03/16/17 08:30; Start 03/06/17 at 09:00; Stop 03/16/17 at 14:38; Status DC Artificial Tears (Artificial Tears) 1 drop BID OU Last administered on 09:02; Start 03/07/17 at 09:00; Stop 03/23/17 at 16:15; Status DC Fluticasone Propionate (Flonase) 2 spray DAILY NS Last administered on 09:02; Start 03/08/17 at 13:15; Stop 03/23/17 at 16:15; Status DC Glucose (Insta-Glucose) 15 gm STK-MED ONCE .ROUTE Last administered on 12:11; Start 03/09/17 at 11:38; Stop 03/09/17 at 11:39; Status DC Divalproex Sodium (Depakote Sprinkles) 125 mg BID92 PO Last administered on 13:36; Start 03/09/17 at 14:00; Stop 03/23/17 at 16:15; Status DC Cetirizine HCl (ZyrTEC) 10 mg DAILY PO Last administered on 03/23/17 09:03; Start 03/14/17 at 09:00; Stop 03/23/17 at 16:15; Status DC Duloxetine HCl (Cymbalta) 40 mg DAILY PO Last administered on 03/23/17 09:02; Start 03/14/17 at 09:00; Stop 03/23/17 at 16:15; Status DC Aripiprazole (Abilify) 2.5 mg DAILY PO Last administered on 03/23/17 09:02; Start 03/17/17 at 09:00; Stop 03/23/17 at 16:15; Status DC Cyanocobalamin (Vitamin B-12) 500 mcg DAILY PO Last administered on 03/23/17 09:05; Start 03/23/17 at 09:00; Stop 03/23/17 at 16:15; Status DC Insulin Detemir (Levemir) 15 units QHS SQ Last administered on 03/22/17 20:12 ; Start 03/22/17 at 21:00; Stop 03/23/17 at 16:15; Status DC Active Scripts Active Reported Tylenol (Acetaminophen) 325 Mg Tablet 650 Mg PO PRN Q6HRS PRN Mag-Al Plus Suspension (Mag Hydrox/Al Hydrox/Simeth) 30 Ml Oral.susp 15 Ml PO PRN AFTMEAL PRN Milk Of Magnesia (Magnesium Hydroxide) 2,400 Mg/10 Ml Oral.susp 2,400 Mg PO PRN QHS PRN Artificial Tears Drops (Polyvinyl Alcohol/Povidone) 15 Ml Drops 15 Ml OP BID Analgesic [place] (Methyl Salicylate/Menthol) 28 Gm Oint...g. 1 Gm TP PRN QID PRN Vitamin B Complex 1 Each Tablet 1 Each PO BID Sodium Bicarbonate 650 Mg Tablet 650 Mg PO BID Magnesium Oxide 400 Mg Tablet 400 Mg PO TID Fluticasone Propionate Nasal [place] (Fluticasone Propionate) 16 Gm [place].susp 2 [place] NS DAILY Cymbalta (Duloxetine Hcl) 20 Mg Capsule.dr 40 Mg PO DAILY Depakote (Divalproex Sodium) 500 Mg Tablet.dr 125 Mg PO BID92 Cetirizine Hcl 10 Mg Tablet 10 Mg PO DAILY [place] 7.5-325 Tablet (Hydrocodone Bit/Acetaminophen) 1 Each Tablet 1 Tab PO QID Abilify (Aripiprazole) 2 Mg Tablet 2.5 Mg PO DAILY Celexa (Citalopram Hydrobromide) 20 Mg Tablet 20 Mg PO DAILY Neurontin (Gabapentin) 600 Mg Tablet 600 Mg PO TID Donepezil Hcl 10 Mg Tablet 10 Mg PO DAILY Levemir Flextouch (Insulin Detemir) 100 Unit/1 Ml Insuln.pen 20 Unit SQ QHS Novolog Flexpen (Insulin Aspart) 100 Unit/1 Ml Insuln.pen 0-5 Unit SQ TIDWMEALS Nystatin 15 Gm Powder 1 Jasmyne TP PRN BID PRN Pyridoxine Hcl 100 Mg Tablet 100 Mg PO DAILY Atorvastatin Calcium 40 Mg Tablet 40 Mg PO QHS Plavix (Clopidogrel Bisulfate) 75 Mg Tablet 75 Mg PO DAILY Vitamin B-12 (Cyanocobalamin (Vitamin B-12)) 1,000 Mcg Tablet 1,000 Mcg PO DAILY Vitamin D3 (Cholecalciferol (Vitamin D3)) 1,000 Unit Tablet 5,000 Unit PO DAILY Diagnosis: Problems: (1) Anxiety disorder (2) Impulse control disorder (3) Major depressive disorder, recurrent episode (4) Dementia in Alzheimer's disease with depression (5) Dementia in Alzheimer's disease with delusions ALESSANDRA IBRAHIM MD Mar 23, 2017 21:16
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
--- NOTE | 2017-03-24 20:38 | PN ---
DATE: 03/22/2017 This is a late entry 03/22/2017 covers the elements not covered in my initial note. I met with the patient in the evening of 03/22/2017. Overall, the patient remains confused, somewhat withdrawn, but not agitated. REVIEW OF SYSTEMS: Ambulation impaired with a walker. No CV, , pulmonary, eye, ENT system symptoms on review. MENTAL STATUS EXAM: Oriented to herself and situation. Speech has some latency, often responses monosyllabic. Abstraction fair, computation impaired, language function intact. Mood and affect showing improvement. LABORATORY DATA: Reviewed. IMPRESSION: Unchanged from initial note. PLAN: Continue current psychotropics, reviewed drug interactions, risk/benefit ratio favors no further change. MAN Elizabeth IBRAHIM MD DR: CARLA/faith JOB#: [id number] / [id number]
== END 2017-03-23 15:00 | disposition home or self-care (01) | DRG 884 ==
LOC: GEROPSY 20:46
PROVIDERS: ADMIT Psychiatry & Neurology Psychiatry; ATTEND Psychiatry & Neurology Psychiatry
DX: F01.51 Vascular dementia, unspecified severity, with behavioral disturbance (principal); E11.22 Type 2 diabetes mellitus with diabetic chronic kidney disease; F33.3 Major depressive disorder, recurrent, severe with psychotic symptoms; F02.81 Dementia in other diseases classified elsewhere, unspecified severity, with behavioral disturbance; G30.0 Alzheimer's disease with early onset; E87.5 Hyperkalemia; E83.42 Hypomagnesemia; F41.9 Anxiety disorder, unspecified; F63.9 Impulse disorder, unspecified; G47.33 Obstructive sleep apnea (adult) (pediatric); I12.9 Hypertensive chronic kidney disease with stage 1 through stage 4 chronic kidney disease, or unspecified chronic kidney disease; I87.2 Venous insufficiency (chronic) (peripheral); K52.9 Noninfective gastroenteritis and colitis, unspecified; M79.7 Fibromyalgia; N18.3 Chronic kidney disease, stage 3 (moderate); Z79.899 Other long term (current) drug therapy; Z86.711 Personal history of pulmonary embolism; Z99.3 Dependence on wheelchair; Z88.0 Allergy status to penicillin; Z88.2 Allergy status to sulfonamides; Z91.048 Other nonmedicinal substance allergy status
CPT/HCPCS: 36415; 80048; 80053; 80061; 80164; 81001; 82306; 82607; 82947; 83036; 83540; 83550; 83735; 84436; 84443; 84480; 85025; 86592; 86593; J1815; 97110; 97116; 97530; 97535